=== PATIENT | female | born 1945 | race Caucasian/White ===

== ENCOUNTER 2019-03-05 10:38 | Observation (INO) | payer OTHER ==
[2019-03-05] MEDS: FUROSEMIDE 40 MG/4 ML VIAL IV SCH (14:01)
[2019-03-05] MEDS ORDERED: cloNIDine HCl 0.1 MG TAB PO PRN (14:14)
[2019-03-05 14:21] LABS: Absolute Lymphocytes (CBC) 1.5 K/uL (0.7-4.9); Absolute Monocytes 0.7 K/uL (0.1-1.3); Absolute Neutrophil 7.2 K/uL (1.8-8.0); Basophils % 0.7 % (0-1.3); Eosinophils % 2.3 % (0-4.4); Hematocrit 45.8 % (36.0-45.0); Lymphocytes % 15.5 % (15.3-44.8); MPV 8.9 fL (7.6-11.3); Monocytes % 6.8 % (3.3-12.3); RBC Red Blood Cell Count 4.94 M/uL (3.86-4.86)
--- NOTE | 2019-03-05 14:37 | RAD REPORT ---
EXAM DESCRIPTION: RAD - Chest Pa And Lat (2 Views) - 03/05/2019 2:23 pm CLINICAL HISTORY: CHF COMPARISON: February 20 TECHNIQUE: PA and lateral views of the chest were obtained. FINDINGS: The lungs are slightly underinflated compared to prior study. No focal consolidation or ma ss. Interstitial markings are prominent similar to comparison. Cardiac silhouette is upper normal to slightly enlarged. Vasculature is mildly prominent. No pleural effusion or pneumothorax seen. No a cute bony finding noted. No aortic abnormality. IMPRESSION: Mild CHF pattern similar to February 20.
[2019-03-05 15:03] LABS: Urine Appearance CLEAR; Urine Bilirubin NEGATIVE (NEG); Urine Blood NEGATIVE (NEG); Urine Color YELLOW; Urine Glucose NEGATIVE (NEG); Urine Protein TRACE (NEG); Urine Urobilinogen 0.2 mg/dL (0.2-1.0)
[2019-03-05 15:07] LABS: Urine Microscopic Reflex ORDER UMIC
[2019-03-05 15:18] LABS: Urine Bacteria <20 /HPF (<20); Urine Culture Reflex Order NOT NEEDED; Urine RBC <5 /HPF (NONE SEEN)
[2019-03-05 15:32] LABS: Potassium 3.7 mmol/L (3.5-5.1); Thyroid Stimulating Hormone 1.68 uIU/mL (0.360-3.740)
--- NOTE | 2019-03-05 21:39 | EKG ---
Test Date: 2019-03-05 Test Time: 13:40:01 Contract Management Specialist: LEXII MEASUREMENT RESULTS: Intervals: Rate: 85 IN: QRSD: 88 QT: 352 QTc: 418 [place]: P: IN: QRS: -56 T: 119 INTERPRETIVE STATEMENTS: Atrial fibrillation Left axis deviation ST & T wave abnormality, consider lateral ischemia or digitalis effect Abnormal ECG Compared to ECG 04/19/1999 09:50:00 Left-axis deviation now present ST (T wave) deviation now present Possible ischemia now present Sinus rhythm no longer present Electronically Signed On 03-05-19 21:38:21 CDT by Julio César Hopkins
[2019-03-05] MEDS ORDERED: ALBUTEROL INHALER 60 PUFF/8 GM IH PRN (23:40)
[2019-03-06] MEDS: FUROSEMIDE 40 MG/4 ML VIAL IV SCH ×3 (00:25→16:26)
[2019-03-06] MEDS: NEBIVOLOL HCL 20 MG TABLET PO SCH ×2 (00:25→21:13)
[2019-03-06] MEDS: LEVOTHYROXINE SOD 0.075 MG TAB PO SCH (06:01)
[2019-03-06] MEDS: PANTOPRAZOLE 40MG TABLET PO SCH (06:01)
[2019-03-06 06:29] LABS: Albumin 3.1 g/dL (3.4-5.0); Bilirubin Direct 0.1 mg/dL (0-0.2); Bilirubin Total 0.5 mg/dL (0.2-1.0); Potassium 3.4 mmol/L (3.5-5.1); Protein, Total 7.1 g/dL (6.4-8.2)
[2019-03-06] MEDS: ALLOPURINOL 300 MG TAB PO SCH (08:28)
[2019-03-06] MEDS: LOSARTAN POTASSIUM 50 MG TABLET PO SCH (08:28)
[2019-03-06] MEDS: MONTELUKAST 10 MG TAB PO SCH (08:28)
[2019-03-06] MEDS: TIOTROPIUM 5 SPRAYS/INHALER IH SCH (08:30)
[2019-03-06] MEDS: FLUTICASONE 50MCG NASAL SPRAY NAS SCH (08:30)
[2019-03-06 13:04] VITALS: BMI 45.8
--- NOTE | 2019-03-06 15:05 | CON ---
History Of Present Illness: Ms. Tavarez is 74. She has noticed an irregular heartbeat for 6 months, per haps longer. She had an EKG done about a week ago in Dr. Wise's office. It showed atrial fib. S leticia then, she has had an echocardiogram that did not show any abnormalities of valvular or myocardia l function. Atrial fib was noted and she came to the hospital because she saw Dr. Wise yesterday. Her chief complaint is being out of breath and swelling and gaining weight and feeling irregular he art beat. The patient reports having rheumatic fever as a child. Now, she is treated for hypertensi on and obesity. Medications: Outpatient medications have been Prilosec, Flonase, estradiol, Demadex 20 b.i.d., losar pereira 100 once a day, allopurinol, albuterol, amitriptyline, fenofibrate, levothyroxine, Bystolic 20 b. i.d., tiotropium and Singulair. Social History: She does not use tobacco. Alcohol use minimal. No illegal drugs. She had a hysterectomy in the past, multiparous. She reports a drug intolerance to hydrochlorothiazide. It probably exacerbates gout. Physical Examination: General: 5 feet 4 inches, 266 pounds. Obese, alert, oriented, pleasant, not in distress. Lungs: Clear. Heart: Irregularly irregular. No significant murmur or gallop. Abdomen: Soft. Extremities: Normal. No cyanosis or clubbing. There is 2 to 3+ edema. Mild redness, especially on the left. She has had a venous Doppler, but not very distant past that did not show any DVT. She has had a vei n ablation surgery for venous insufficiency about a year to 2 years ago. Impression: The patient has chronic atrial fibrillation. I do not think we should attempt to change her to normal sinus rhythm, although that could be revisited after she has been anticoagulated for 3 weeks. Her heart rate on the EKG was 85, so I would recommend we continue the Bystolic 20 b.i.d., i nitiate therapy with larger doses of diuretics, teach about sodium restriction and anticoagulate her with Xarelto. The Xarelto dose should be 15 mg once a day. She has renal insufficiency. Her GFR es timate is 41. Thank you very much for your kind referral of Ms. Tavarez. I will follow her with you. SUSAN Voice ID: [id number] Report ID: [id number]
[2019-03-06] MEDS ORDERED: ALBUTEROL INHALER 60 PUFF/8 GM IH PRN (16:43)
[2019-03-06] MEDS ORDERED: POTASSIUM CL SA 10 MEQ TAB PO ONE (17:00)
[2019-03-06] MEDS ORDERED: RIVAROXABAN 15 MG TABLET PO SCH (17:00)
[2019-03-06] MEDS ORDERED: TIOTROPIUM 5 SPRAYS/INHALER IH SCH (21:00)
[2019-03-06] MEDS ORDERED: FENOFIBRATE 145 MG TAB PO SCH (21:00)
[2019-03-06] MEDS ORDERED: NEBIVOLOL HCL 20 MG TABLET PO SCH (21:00)
[2019-03-06] MEDS ORDERED: AMITRIPTYLINE 25 MG TAB PO SCH ×2 (21:00)
[2019-03-07] MEDS: PANTOPRAZOLE 40MG TABLET PO SCH (05:26)
[2019-03-07] MEDS: LEVOTHYROXINE SOD 0.075 MG TAB PO SCH (05:26)
[2019-03-07 06:29] LABS: Potassium 3.5 mmol/L (3.5-5.1)
[2019-03-07] MEDS ORDERED: LEVOTHYROXINE SOD 0.075 MG TAB PO SCH (06:30)
--- NOTE | 2019-03-07 08:27 | RAD REPORT ---
EXAM DESCRIPTION: RAD - Chest Single View - 03/07/2019 6:51 am CLINICAL HISTORY: chf Chest pain. COMPARISON: Chest Pa And Lat (2 Views) dated 03/05/2019; Chest Pa And Lat (2 Views) dated 02/20/2019; Chest Pa And Lat (2 Views) dated 03/01/2018; Chest Pa And Lat (2 Views) dated 03/15/2016 FINDINGS: Portable technique limits examination quality. The lungs are grossly clear. The heart is moderately enlarged prominent in size. No displaced fractur es. IMPRESSION: Significant improvement in CHF since comparative study.
[2019-03-07] MEDS ORDERED: ESTRADIOL PO SCH (09:00)
[2019-03-07] MEDS ORDERED: LOSARTAN POTASSIUM 50 MG TABLET PO SCH (09:00)
[2019-03-07] MEDS ORDERED: MONTELUKAST 10 MG TAB PO SCH (09:00)
[2019-03-07] MEDS ORDERED: POTASSIUM CL SA 10 MEQ TAB PO ONE (09:00)
[2019-03-07] MEDS ORDERED: ALLOPURINOL 300 MG TAB PO SCH (09:00)
[2019-03-07] MEDS: TIOTROPIUM 5 SPRAYS/INHALER IH SCH (09:00)
[2019-03-07] MEDS: FLUTICASONE 50MCG NASAL SPRAY NAS SCH (09:00)
[2019-03-07] MEDS: LOSARTAN POTASSIUM 50 MG TABLET PO SCH (09:26)
[2019-03-07] MEDS: FUROSEMIDE 40 MG/4 ML VIAL IV SCH (09:28)
[2019-03-07] MEDS: MONTELUKAST 10 MG TAB PO SCH (09:31)
[2019-03-07] MEDS: ALLOPURINOL 300 MG TAB PO SCH (09:31)
[2019-03-07 09:37] VITALS: BP 140/80
[2019-03-07 12:35] VITALS: TEMP 97.6
[2019-03-07 14:16] VITALS: O2SAT 95
[2019-03-07] MEDS ORDERED: FLUTICASONE (FLONASE) 50MCG NASAL SPRAY NAS SCH (14:30)
--- NOTE | 2019-03-07 15:16 | PN ---
The patient was admitted by Dr. Wise on 03/05/2019. Dr. Bae saw her on 03/06/2019 for chronic atrial fibrillation. Bystolic 20 b.i.d. was recommended. She was also placed on Xarelto and Lasix. She had an echocardiogram that was normal. Today, she remained in atrial fibrillation, rate about 8 0s. No symptoms of chest pain or palpitation. I think she can go home today on Bystolic, Xarelto, a nd Lasix and we will see her in the office in the next 2 weeks. If she becomes symptomatic or if her fluid retention continues to be an issue, we may have to try to convert her to a normal rhythm down the road. RO/KATTY Voice ID: [id number] Report ID: [id number]
[2019-03-07] MEDS ORDERED: FENOFIBRATE 160 MG TAB PO SCH (21:00)
--- NOTE | 2019-03-07 21:31 | PN ---
Date of Progress Note: 03/06/2019 Subjective: The patient states she does feel somewhat better. As far as her breathing is concerned, since she got the IV Lasix. She has also continued occasionally to notice some regular beats and sh e does have atrial fibrillation with a slow response. She has lost about 4 pounds. Cardiology felt that she should be on low-dose Xarelto. I will repeat the chest x-ray in a.m. if this is okay and sh owed improvement she probably discharged. HR/MODL Voice ID: [id number] Report ID: [id number]
--- NOTE | 2019-03-07 21:37 | PN ---
Date of Progress Note: 03/07/2019 Subjective: The patient feels better. Both clinically and symptomatically, chest x-ray showed marke d improvement. We will discharge her on Lasix. Continue Xarelto and Bystolic. Follow up with me in 1 week and Cardiology in 2 weeks. HR/MODL Voice ID: [id number] Report ID: [id number]
--- NOTE | 2019-03-07 21:37 | HP ---
Date of Admission: 03/05/2019 Chief Complaint: Shortness of breath, skipped heart beats. History Of Present Illness: The patient presented with the above outlined symptoms into the office a bout a week ago. At that time, she stated she has had some increasing dyspnea and noticed associated with this was some irregular heartbeat. She was treated as a COPD secondary to a prior p ulmonary function test with inhalers which produced minimal improvement. The day of admission, she s tated she was markedly worse as far as her breathing was concerned, difficulty coming from the roberto g lot to my office, which was unusual for her. She stated there was no significant difference in the frequency of the extra beats. Workup revealed atrial fibrillation. The chest x-ray show ed a possibility of a mild CHF versus fluid volume overload, we decided to admitted for more intensiv e care. Past Medical History: The patient known signs of any heart problems. She has had an obes ity, hyperlipidemia, and hypertension problem for a number of years, but relatively good control on m edication including beta-blockers. Social History: Nonsmoker and nondrinker. Family History: Noncontributory. Physical Examination: General: The patient is a moderately obese, middle-aged female with obvious dyspnea on exertion. Vital Signs: Normal O2 sats and vital signs. Head and Neck: Normocephalic. Pupils equal, reactive to light and accommodation. Fundi negative. Trachea midline. Thyroid not palpable. ENT: Negative. Chest: Occasional rales in both bases. Adequate air entry and movement. Cardiovascular: PMI in midclavicular line. Heart sounds normal. Peripheral pulses are present and equal bilaterally. Abdomen: No organomegaly. Bowel sounds present. Extremities: +1 pitting edema bilaterally. Rectal and Pelvic: Deferred. Impression: Congestive heart failure, atrial fibrillation. Plan: The patient will be admitted, placed on a monitor, given IV Lasix. Follow up with a Cardiolog y consult as well. HR/MODL Voice ID: [id number]
[2019-03-08] MEDS ORDERED: PANTOPRAZOLE 40MG TABLET PO SCH (07:30)
[2019-03-08] MEDS ORDERED: TIOTROPIUM (SPIRIVA) INHALER IH SCH (09:00)
== END 2019-03-07 14:36 | disposition home or self-care (01) ==
LOC: 2ND 12:37
PROVIDERS: ADMIT Family Medicine; ATTEND Family Medicine
DX: I48.2 Chronic atrial fibrillation (principal); E66.9 Obesity, unspecified; Z68.42 Body mass index [BMI] 45.0-49.9, adult; I50.9 Heart failure, unspecified
CPT/HCPCS: 93005; 85025; 80048 ×3; 36415 ×2; 80061; 80076; 84443; 71045; 71046; J1940 ×5; G0379; G0378; 81003; 81015

== ENCOUNTER 2021-08-13 11:53 | Emergency (ER) | payer OTHER ==
--- NOTE | 2021-08-13 13:46 | RAD REPORT ---
EXAM DESCRIPTION: Gurvinder Single View08/13/2021 1:30 pm CLINICAL HISTORY: Shortness of breath COMPARISON: 2019 FINDINGS: Mild bilateral pulmonary opacities. Heart remains enlarged IMPRESSION: Mild CHF
[2021-08-13 14:17] LABS: ALT/SGPT 21 U/L (12-78); AST/SGOT 18 U/L (15-37); Albumin 2.6 g/dL (3.4-5.0); Alkaline Phosphatase 111 U/L (45-117); BUN Blood Urea Nitrogen 88 mg/dL (7-18); Bicarbonate 23 mmol/L (21-32); Bilirubin Direct 0.2 mg/dL (0-0.2); Bilirubin Total 0.5 mg/dL (0.2-1.0); Glucose Level 113 mg/dL (74-106); Magnesium 2.6 mg/dL (1.8-2.4); NT PRO-BNP 656 pg/mL (<125); Potassium 4.6 mmol/L (3.5-5.1); Protein, Total 7.3 g/dL (6.4-8.2); Sodium Level 132 mmol/L (136-145); Troponin (Emerg Dept Use Only) < 0.02 ng/mL (0.0-0.045)
[2021-08-13 14:30] LABS: Absolute Lymphocytes (CBC) 0.9 K/uL (0.7-4.9); Basophils % 0.6 % (0-1.3); Hematocrit 37.2 % (36.0-45.0); Lymphocytes % 6.9 % (15.3-44.8); MPV 7.6 fL (7.6-11.3); RBC Red Blood Cell Count 3.93 M/uL (3.86-4.86)
[2021-08-13 14:32] LABS: Protime INR 2.25
[2021-08-13] MEDS ORDERED: FUROSEMIDE 40 MG/4 ML VIAL ONE (14:45)
--- NOTE | 2021-08-13 15:38 | EDPHYS ---
Physician Documentation [facility] Name: Jose Maria Tavarez Age: 76 yrs Sex: Female : 1945 Arrival Date: 08/13/2021 Time: 11:58 Bed 25 Private MD: ED Physician Troy Mckay HPI: 08/13 12:36 This 76 yrs old Female presents to ER via Wheelchair with complaints of Leg pm1 Swelling, Shortness Of Breath. 12:36 The patient has shortness of breath at rest. Onset: The symptoms/episode began/occurred pm1 3 week(s) ago, and became worse 3 day(s) ago. Duration: The symptoms are continuous, and are steadily getting worse. The patient's shortness of breath is aggravated by nothing, is alleviated by nothing. Associated signs and symptoms: Pertinent negatives: chest pain, non-productive cough, productive cough, fever, nausea, vomiting. Severity of symptoms: in the emergency department the symptoms are worse. The patient has been recently seen by a physician: a security messenger, Ablation for atrial fibrillation last month. Historical: - Allergies: 12:16 No Known Allergies; ll1 - PMHx: 12:16 Hypertensive disorder; thyroid; A flutter; ll1 - PSHx: 12:16 A flutter SX-ablation; ll1 - Immunization history:: Client reports receiving the 2nd dose of the Covid vaccine. - Social history:: Smoking status: Patient denies any tobacco usage or history of. ROS: 12:36 Constitutional: Negative for fever, chills, and weight loss. pm1 12:36 Abdomen/GI: Negative for abdominal pain, nausea, vomiting, diarrhea, and constipation, Back: Negative for injury and pain, MS/Extremity: Negative for injury and deformity, Skin: Negative for injury, rash, and discoloration, Neuro: Negative for headache, weakness, numbness, tingling, and seizure. 12:36 Cardiovascular: Positive for edema, orthopnea, Negative for chest pain. 12:36 Respiratory: Positive for shortness of breath. 12:36 All other systems are negative. Exam: 12:36 Constitutional: This is a well developed, well nourished patient who is awake, alert, pm1 and in no acute distress. Head/Face: Normocephalic, atraumatic. 12:36 Back: No spinal tenderness. No costovertebral tenderness. Full range of motion. 12:36 Eyes: Exam is negative for acute changes, Extraocular movements: no acute changes, Sclera: no acute changes, icterus, is not appreciated. 12:36 ENT: Mouth: no acute changes, Lips: normal, moist, Oral mucosa: normal, pink and intact, moist. 12:36 Cardiovascular: Rate: bradycardic, Rhythm: irregular, Pulses: no pulse deficits are appreciated, Edema: pedal edema, 3+ bilaterally. 12:36 Respiratory: the patient does not display signs of respiratory distress, Breath sounds: decreased breath sounds, that are mild, are located in both bases. 12:36 Abdomen/GI: Inspection: obese Palpation: abdomen is soft and non-tender, in all quadrants. 12:36 Skin: Appearance: normal except for affected area, Tight weeping skin to bilateral shins. 12:36 Neuro: Exam negative for acute changes, Orientation: is normal, Mentation: is normal, Motor: is normal, moves all fours. Vital Signs: 12:14 BP 116 / 59; Pulse 55; Resp 20; Temp 97.1; Pulse Ox 94% on R/A; Weight 122.47 kg; ll1 Height 5 ft. 5 in. (165.10 cm); Pain 0/10; 13:25 BP 142 / 67; Pulse 53; Resp 22; Pulse Ox 95% on 2 lpm NC; oh 19:20 BP 114 / 59; Pulse 45; Resp 20; Temp 97.7; Pulse Ox 96% on 3 lpm NC; hb 20:16 BP 100 / 61; Pulse 46; Resp 18; Temp 97.7(O); Pulse Ox 95% on 3 lpm NC; hb 21:00 BP 95 / 66; Pulse 47; Resp 18; Pulse Ox 94% on 3 lpm NC; hb 22:00 BP 124 / 69; Pulse 54; Pulse Ox 94% on 3 lpm NC; hb 22:45 BP 124 / 69; Pulse 60; Resp 18; Temp 98(O); Pulse Ox 96% on 3 lpm NC; hb 12:14 Body Mass Index 44.93 (122.47 kg, 165.10 cm) ll1 Procedures: 18:57 Ultrasound: Type: Bedside ECHO, performed by the emergency department physician, rn Bedside ECHO performed by Dr. Mccann, saved clips of parasternal and sub-xiphoid and transmitted images to Dr. Watt for confirmation of pericardial effusion.. MDM: 12:24 Patient medically screened. pm1 15:30 Counseling: I had a detailed discussion with the patient and/or guardian regarding: the pm1 historical points, exam findings, and any diagnostic results supporting the discharge/admit diagnosis, lab results, radiology results, the need for further work-up and treatment in the hospital. 15:35 Data reviewed: vital signs. Data interpreted: Pulse oximetry: on 2L(s) per nasal pm1 canula, is 95 %. Interpretation: normal. 15:39 Differential diagnosis: CHF exacerbation, Chronic Obstructive Pulmonary Disease pm1 pulmonary edema. 16:52 Differential diagnosis: Myocardial Infarction pneumonia, Pericarditis. pm1 17:12 Physician consultation: was called at 15:34, was contacted at 17:10, regarding pm1 admission, patient's condition, Would like hospitalist to admit the patient because he will be out of town. 18:06 Physician consultation: Lázaro GRESHAM regarding admission, and will see patient in ED.pm1 19:05 Physician consultation: Db Watt MD was called at 18:46, was contacted at 18:51, pm1 regarding consult, patient's condition, Requested Ultrasound, but ultrasound techs to perform echoes and not available. Therefore bedside ultrasound performed by Dr. Mccann and images shared with Dr. Watt. He would like the patient transferred to the [facility] due to moderate pericardial effusion. 19:17 Physician consultation: Lázaro GRESHAM regarding Alysa BHANDARI request to transfer the pm1 patient to [facility] for higher level of care. 20:09 ED course: Discussed patient with Dr. Borden. However, [facility] currently at capacity pm1 for IMU/ICU. Dr. Borden, [facility] security messenger would like Dr. Watt to call him to discuss the patient further with him. 20:46 ED course: Transfer center from [facility] called back to inform no ICU/IMU beds pm1 available. They will continue to work on finding a bed for the patient. I will continue to look for another hospital for transfer. [facility] declined due to capacity. 22:27 ED course: Patient wanted to leave. Does not want to be admitted or transfer to other [facility] facility. Patient signed AMA. 08/13 12:34 Order name: Basic Metabolic Panel; Complete Time: 14:58 pm1 08/13 12:34 Order name: CBC with Diff; Complete Time: 14:58 pm1 08/13 12:34 Order name: LFT's; Complete Time: 14:58 pm1 08/13 12:34 Order name: Magnesium; Complete Time: 14:58 pm1 08/13 12:34 Order name: NT PRO-BNP; Complete Time: 14:58 pm1 08/13 12:34 Order name: PT-INR; Complete Time: 14:58 pm1 08/13 12:34 Order name: Troponin (emerg Dept Use Only); Complete Time: 14:58 pm1 08/13 12:34 Order name: XRAY Chest (1 view); Complete Time: 13:53 pm1 08/13 15:41 Order name: COVID-19 : Document "Date of Symptom Onset" if Symptomatic. pm1 08/13 15:42 Order name: CORONAVIRUS EDMS 08/13 17:10 Order name: CT Chest Wo Con pm1 08/13 18:25 Order name: CT; Complete Time: 18:26 EDMS 08/13 18:47 Order name: SARS-COV-2 RT PCR; Complete Time: 19:09 EDMS 08/13 19:18 Order name: Troponin I; Complete Time: 19:19 EDMS 08/13 12:34 Order name: EKG; Complete Time: 12:35 pm1 08/13 12:34 Order name: Cardiac monitoring; Complete Time: 13:18 pm1 08/13 12:34 Order name: EKG - Nurse/Tech; Complete Time: 12:55 pm1 08/13 12:34 Order name: IV Saline Lock; Complete Time: 13:18 pm1 08/13 12:34 Order name: Labs collected and sent; Complete Time: 13:18 pm1 08/13 12:34 Order name: O2 Per Protocol; Complete Time: 12:58 pm1 08/13 12:34 Order name: O2 Sat Monitoring; Complete Time: 12:58 pm1 08/13 16:52 Order name: EKG; Complete Time: 16:53 pm1 08/13 16:52 Order name: EKG - Nurse/Tech; Complete Time: 16:53 pm1 Administered Medications: 14:24 Drug: Lasix (furosemide) 40 mg Route: IVP; Site: left antecubital; oh 19:19 Follow up: Urine output 200 ml; Response: No adverse reaction hb Disposition: 22:15 Co-signature as Attending Physician, Troy Mckay MD. pkl Disposition Summary: 08/13/21 22:32 Left Against Medical Advice Location: Home(08/13/21 22:32) pkl Problem: new(08/13/21 22:32) pkl Symptoms: are unchanged(08/13/21 22:32) pkl Condition: Stable(08/13/21 22:32) pkl Diagnosis - Pericardial effusion. S/P ablation pkl Signatures: Dispatcher [employer] EDMS Troy Mckay MD MD pkl Butch Mccann MD MD rn Marinas, Patrick, NP TYPING BOOKKEEPER pm1 Irlanda Carrasquillo RN RN ll1 Chris Hammond RN RN oh Baxter, Heather RN hb Corrections: (The following items were deleted from the chart) 15:40 15:37 Acute on chronic combined systolic (congestive) and diastolic (congestive) heart pm1 failure pm1 19:07 15:37 Inpatient Admission pm1 pm1 19:07 15:37 Lincoln Wise pm1 pm1 19:07 15:37 Telemetry/MedSurg (Inpatient) pm1 pm1 19:07 15:37 Stable pm1 pm1 19:07 15:37 new pm1 pm1 19:07 15:37 have improved pm1 pm1 19:07 15:37 Standard pm1 pm1 19:07 15:37 pm1 pm1 19:07 15:37 Shortness of breath pm1 pm1 19:07 15:40 Congestive heart failure exacerbation pm1 pm1 22:25 19:09 pm1 pkl 22:26 19:09 [facility] pm1 pkl 22:26 19:09 Higher level of care pm1 pkl 22:26 19:09 Stable pm1 pkl 22:26 19:09 new pm1 pkl 22:26 19:09 have improved pm1 pkl 22:26 19:09 Moderate pericardial effusion pm1 pkl 22:26 19:09 Congestive heart failure exacerbation pm1 pkl
--- NOTE | 2021-08-13 15:38 | ER ---
Nurse's Notes [facility] Name: Jose Maria Tavarez Age: 76 yrs Sex: Female : 1945 Arrival Date: 08/13/2021 Time: 11:58 Bed 25 Private MD: Diagnosis: Pericardial effusion. S/P ablation Presentation: 08/13 12:14 Chief complaint: Patient states: Bilateral leg swelling for 2 days. SOB has gotten ll1 worse for 2 days. LLE is weeping clear liquid. No known fever, but felt hot two days ago. Slight confusion noted per daughter. Coronavirus screen: Vaccine status: Patient reports receiving the 2nd dose of the covid vaccine. Client denies travel out of the [place] in the last 14 days. congestion, difficulty breathing, shortness of breath, Client presents with at least one sign or symptom that may indicate coronavirus-19. Standard/surgical mask placed on the client. Ebola Screen: Patient denies travel to an Ebola-affected area in the 21 days before illness onset. Initial Sepsis Screen: Does the patient meet any 2 criteria? No. Patient's initial sepsis screen is negative. Does the patient have a suspected source of infection? Yes: Other: leg swelling. Risk Assessment: Do you want to hurt yourself or someone else? Patient reports no desire to harm self or others. Onset of symptoms was August 11, 2021. 12:14 Method Of Arrival: Wheelchair ll1 12:14 Acuity: LUDIVINA 3 ll1 Triage Assessment: 13:20 Respiratory: the patient has severe shortness of breath. oh 13:21 General: Appears distressed, Behavior is calm, cooperative, appropriate for age. oh 19:19 Respiratory: Onset: The symptoms/episode began/occurred 07/27/2021. hb 19:19 Pain: Denies pain. hb Historical: - Allergies: 12:16 No Known Allergies; ll1 - PMHx: 12:16 Hypertensive disorder; thyroid; A flutter; ll1 - PSHx: 12:16 A flutter SX-ablation; ll1 - Immunization history:: Client reports receiving the 2nd dose of the Covid vaccine. - Social history:: Smoking status: Patient denies any tobacco usage or history of. Screenin:20 Abuse screen: Denies threats or abuse. Nutritional screening: No deficits noted. oh Tuberculosis screening: No symptoms or risk factors identified. Fall Risk Gait-. Assessment: 13:18 Cardiovascular: Reports SOB after cardiac ablation procedure. Respiratory: Reports oh shortness of breath Respiratory effort is labored, Breath sounds are diminished. 13:21 Respiratory: Airway is patent. oh 13:24 Cardiovascular: Rhythm is sinus bradycardia. oh 19:19 General: Appears in no apparent distress. Behavior is calm, cooperative, AA\\T\\Ox4; denies hb any complaints with exception of stretcher being uncomfortable; sitting on edge of stretcher; daughter sitting in chair \\T\\ side of stretcher; O2 intact \\T\\ 3L/NBP; O2 sat 96%; crackles auscultated right upper lung field with diminished bilateral bases. abdomen obese with + BS's x 4 quads; large amount nonpitting edema noted bilateral lower extremities with palpable 1+ pedal pulses; stasis ulcers noted BLE; #20g saline lock intact right AC with no s/sx' of infiltration/infection noted; stretcher low position; SR up x 1; awaiting transfer to [place], [place] with patient informed \\T\\ v/u.. 19:40 Reassessment: Initiated transfer to [facility] for continuity of care s/p heart ablation bb diagnosis of pericardial effusion. [phone]. 20:03 Reassessment: transfer declined no IMU or ICU beds available. bb 20:25 Reassessment: initiated transfer to [facility] [phone]. bb 20:55 Reassessment: transfer to [facility] declined due to lack of ICU / IMU beds. bb 22:45 Reassessment: No changes from previously documented assessment. Requesting to leave hb AMA; Dr. Troy Mckay in to see \\T\\ informed of risks with AMA formed signed; daughter reports that she is taking her mother to [facility]; saline lock removed right AC with cath. intact/bleeding controlled with pressure dsg applied; T98.0 oral; B/P 124/69; P 60; R 18; O2 sat 3L/NBP; discharged to exit via w/c accompanied by daughter; NAD. Vital Signs: 12:14 BP 116 / 59; Pulse 55; Resp 20; Temp 97.1; Pulse Ox 94% on R/A; Weight 122.47 kg; ll1 Height 5 ft. 5 in. (165.10 cm); Pain 0/10; 13:25 BP 142 / 67; Pulse 53; Resp 22; Pulse Ox 95% on 2 lpm NC; oh 19:20 BP 114 / 59; Pulse 45; Resp 20; Temp 97.7; Pulse Ox 96% on 3 lpm NC; hb 20:16 BP 100 / 61; Pulse 46; Resp 18; Temp 97.7(O); Pulse Ox 95% on 3 lpm NC; hb 21:00 BP 95 / 66; Pulse 47; Resp 18; Pulse Ox 94% on 3 lpm NC; hb 22:00 BP 124 / 69; Pulse 54; Pulse Ox 94% on 3 lpm NC; hb 22:45 BP 124 / 69; Pulse 60; Resp 18; Temp 98(O); Pulse Ox 96% on 3 lpm NC; hb 12:14 Body Mass Index 44.93 (122.47 kg, 165.10 cm) ll1 ED Course: 11:58 Patient arrived in ED. ja2 12:16 Triage completed. ll1 12:18 Arm band placed on. ll1 12:20 Scott Fox, JARAD is PHCP. pm1 12:20 Butch Mccann MD is Attending Physician. pm1 12:25 Bed in low position. Call light in reach. Door closed. Lights dimmed. Pulse ox on. NIBP mb4 on. 12:49 EKG done, by ED staff, reviewed by Scott Fox NP. mb4 12:58 Chris Hammond, ALBERTO is Primary Nurse. oh 13:30 XRAY Chest (1 view) In Process Unspecified. EDMS 15:36 Lincoln Wise MD is Hospitalizing Provider. pm1 15:57 COVID-19 : Document "Date of Symptom Onset" if Symptomatic. Sent. oh 19:19 No provider procedures requiring assistance completed. hb 19:21 CT Chest Wo Con Sent. bb 22:15 Attending Physician role handed off by Butch Mccann MD pkl 22:15 Troy Mckay MD is Attending Physician. pkl 22:45 IV discontinued, intact, bleeding controlled, No redness/swelling at site. Pressure hb dressing applied. Administered Medications: 14:24 Drug: Lasix (furosemide) 40 mg Route: IVP; Site: left antecubital; oh 19:19 Follow up: Urine output 200 ml; Response: No adverse reaction hb Output: 19:19 Urine: 200ml; Total: 200ml. hb Outcome: 15:37 Decision to Hospitalize by Provider. pm1 19:09 ER care complete, transfer ordered by . pm1 22:45 Condition: unchanged hb 22:45 AMA AMA form signed hb 22:45 Instructed on the need for admit. hb 23:22 Patient left the ED. hb Signatures: Dispatcher [employer] EDTroy Dos Santos MD MD pkKamla Jose, RN RN bb Scott Fox, NURSE MIDWIFE/CLINICAL INSTRUCTOR NURSE MIDWIFE/CLINICAL INSTRUCTOR pm1 Bonnie Coughlin RN RN Irene Coughlin4 Irlanda Carrasquillo RN RN [facility] Ludmila Coates [facility] Chris Hammond, RN RN oh
[2021-08-13] MEDS ORDERED: ALBUTEROL 2.5 MG/3 ML NEB SOL NEB PRN (18:16)
[2021-08-13] MEDS ORDERED: IPRATROPIUM BROM 0.5MG/2.5ML NEB PRN (18:16)
[2021-08-13] MEDS ORDERED: FUROSEMIDE 20 MG/ 2ML VIAL IV SCH (18:16)
--- NOTE | 2021-08-13 18:24 | RAD REPORT ---
EXAM DESCRIPTION: CT - Thorax Wo Con - 08/13/2021 6:12 pm CLINICAL HISTORY: sob COMPARISON: August 13, 2021 chest x-ray TECHNIQUE: Computed axial tomography of the chest was obtained. Contrast was not requested. All CT scans are performed using dose optimization technique as appropriate and may include automated exposure control or mA/KV adjustment according to patient size. FINDINGS: The evaluation of mediastinum, sarah and vessels is limited secondary to lack of IV contras t administration. Mild bilateral pulmonary opacities. No mediastinal or hilar lymphadenopathy is seen. A minimal bilateral pleural effusions. Moderate pericardial effusion. Cardiomegaly Calcifications seen within the left lobe of the thyroid gland. Left thyroid nodule. Nonemergent thyr oid ultrasound recommended IMPRESSION: Mild CHF Moderate pericardial effusion
[2021-08-13] MEDS ORDERED: ONDANSETRON 4 MG/2 ML VIAL IV PRN (18:53)
[2021-08-13] MEDS ORDERED: ACETAMINOPHEN 500 MG TAB PO PRN (18:53)
[2021-08-13] MEDS ORDERED: FUROSEMIDE 20 MG/ 2ML VIAL ONE (18:56)
[2021-08-13] MEDS ORDERED: NA CHLORIDE 0.9% 1,000 ML IV SCH (19:00)
[2021-08-13 20:18] VITALS: BMI 46.3
[2021-08-13 23:33] VITALS: BP 124/69
[2021-08-13 23:35] VITALS: TEMP 98; O2SAT 96
[2021-08-14] MEDS ORDERED: HEPARIN 5000 UNIT/ML 1 ML VIAL SQ SCH (01:00)
--- OUTSIDE RECORDS SUMMARY | 2021-09-16 07:52 | XMS REPORT | Continuity of Care Document ---
:1945 Author Organization [facility] t Address [facility] Sigifred[facility] [address] [place] [address] Care Team Providers Name Role Phone MD JULIO C Attending Clinician Unavailable JULIO C Attending Clinician Unavailable JEANNINE Attending Clinician Unavailable DANIEL Attending Clinician Unavailable MD Ivett MEDLEY Attending Clinician Unavailable MD JULIO C Admitting Clinician Unavailable JASMYNE Admitting Clinician Unavailable MD Ivett MEDLEY Admitting Clinician Unavailable JULIOC Admitting Clinician Unavailable Problems Condition Condition Condition Status Onset Resolution Last Treating Co mments Source Name Details Category Date Date Treatment Clinician Date 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 02:07:53 l pain Atypical John n (finding) facial pain (finding) Active Problem 12/18/2020 [facility] Hypertensi Problem Active 2020-12-18 M emoria ve 02:07:53 l disorder, [place] systemic Hypertensi arterial ve (disorder) disorder, systemic arterial (disorder) Active Problem 12/18/2020 [facility] Allergies, Adverse Reactions, Alerts Allergy Allergy Status Severity Reaction(s) Onset Inactive Treating Comm ents Source Name Type Date Date Clinician penicill penicill Active MO^Modera Mem oria in in te l [facility] Social History Smoking Status Start Date Stop Date Source Social History [facility] Medications Ordered Filled Start Stop Current Ordering Indication Dosage Frequency Signature Comments Components Source Medication Medication Date Date Medication? Clinician (SIG) Name Name amitriptyli 2020-0 Yes 10 mg = 1 M emoria ne 10 mg 2-04 tab, PO, l oral tablet 23:11: Bedtime, # [place] 00 90 tab, 2 Refill(s), Pharmacy: [facility][id number] amitriptyli 2020-0 Yes 10 mg = 1 M emoria ne 10 mg 2-04 tab, PO, l oral tablet 23:11: Bedtime, # [place] 00 90 tab, 2 Refill(s), [id number] amitriptyli 2020-0 Yes 10 mg = 1 M emoria ne 10 mg 2-04 tab, PO, l oral tablet 23:11: Bedtime, # [place] 00 90 tab, 2 Refill(s), [id number] amitriptyli 2020-0 Yes 10 mg = 1 M emoria ne 10 mg 2-04 tab, PO, l oral tablet 23:11: Bedtime, # [place] 00 90 tab, 2 Refill(s), [id number] amitriptyli 2020-0 Yes 10 mg = 1 M emoria ne 10 mg 2-04 tab, PO, l oral tablet 23:11: Bedtime, # [place] 00 90 tab, 2 Refill(s), Pharmacy: [facility] #[id number] montelukast 2020-0 Yes 10 mg, PO, Memoria 2-04 Daily, 0 l 22:37: Refill(s) torsemide 2020-0 Yes 20 mg, PO, Me moria 2-04 Daily, # l 22:37: 20 tab, 0 [place] 00 Refill(s) fluticasone 2020-0 Yes 50 Memori a propionate 2-04 microgram, l 22:37: INHALATION [place] 00 , Daily, 0 Refill(s) Synthroid 2020-0 Yes 75 Memoria 2-04 microgram, l 22:37: PO, Daily, [place] 00 0 Refill(s) Amitriptyli 2020-0 No 20 mg, PO, Memoria ne 2-04 Bedtime, 0 l 22:37: Refill(s) [place] 00 Allopurinol 2020-0 Yes 300 mg, Mem oria 2-04 PO, Daily, l 22:37: 0 [place] 00 Refill(s) Xarelto 2020-0 Yes 15 mg, PO, Orlin fabby 2-04 Daily, 0 l 22:37: Refill(s) [place] 00 Losartan 2020-0 Yes 100 mg, Memori a 2-04 PO, Daily, l 22:37: 0 [place] 00 Refill(s) Bystolic 2020-0 Yes 20 mg, PO, Mem oria 2-04 BID, 0 l 22:37: Refill(s) [place] 00 montelukast 2020-0 Yes 10 mg, PO, Memoria 2-04 Daily, 0 l 22:37: Refill(s) torsemide 2020-0 Yes 20 mg, PO, Me moria 2-04 Daily, # l 22:37: 20 tab, 0 Refill(s) fluticasone 2020-0 Yes 50 Memori a propionate 2-04 microgram, l 22:37: INHALATION [place] 00 , Daily, 0 Refill(s) Synthroid 2020-0 Yes 75 Memoria 2-04 microgram, l 22:37: PO, Daily, 0 Refill(s) Amitriptyli 2019-0 No 20 mg, PO, Memoria ne 2-04 Bedtime, 0 l 22:37: Refill(s) Allopurinol 2020-0 Yes 300 mg, Mem oria 2-04 PO, Daily, l 22:37: 0 Refill(s) Xarelto 2019-0 Yes 15 mg, PO, Orlin fabby 2-04 Daily, 0 l 22:37: Refill(s) Losartan 2020-0 Yes 100 mg, Memori a 2-04 PO, Daily, l 22:37: 0 Refill(s) Bystolic 2020-0 Yes 20 mg, PO, Mem oria 2-04 BID, 0 l 22:37: Refill(s) montelukast 2020-0 Yes 10 mg, PO, Memoria 2-04 Daily, 0 l 22:37: Refill(s) torsemide 2020-0 Yes 20 mg, PO, Me moria 2-04 Daily, # l 22:37: 20 tab, 0 Refill(s) fluticasone 2020-0 Yes 50 Memori a propionate 2-04 microgram, l 22:37: INHALATION [place] 00 , Daily, 0 Refill(s) Synthroid 2020-0 Yes 75 Memoria 2-04 microgram, l 22:37: PO, Daily, [place] 00 0 Refill(s) Amitriptyli 2020-0 No 20 mg, PO, Memoria ne 2-04 Bedtime, 0 l 22:37: Refill(s) Allopurinol 2020-0 Yes 300 mg, Mem oria 2-04 PO, Daily, l 22:37: 0 [place] 00 Refill(s) Xarelto 2020-0 Yes 15 mg, PO, Orlin fabby 2-04 Daily, 0 l 22:37: Refill(s) [place] 00 Losartan 2020-0 Yes 100 mg, Memori a 2-04 PO, Daily, l 22:37: 0 Refill(s) Bystolic 2020-0 Yes 20 mg, PO, Mem oria 2-04 BID, 0 l 22:37: Refill(s) montelukast 2020-0 Yes 10 mg, PO, Memoria 2-04 Daily, 0 l 22:37: Refill(s) torsemide 2020-0 Yes 20 mg, PO, Me moria 2-04 Daily, # l 22:37: 20 tab, 0 Refill(s) fluticasone 2019-0 Yes 50 Memori a propionate 2-04 microgram, l 22:37: INHALATION [place] 00 , Daily, 0 Refill(s) Synthroid 2019-0 Yes 75 Memoria 2-04 microgram, l 22:37: PO, Daily, [place] 00 0 Refill(s) Amitriptyli 2019-0 No 20 mg, PO, Memoria ne 2-04 Bedtime, 0 l 22:37: Refill(s) Allopurinol 2020-0 Yes 300 mg, Mem oria 2-04 PO, Daily, l 22:37: 0 Refill(s) Xarelto 2020-0 Yes 15 mg, PO, Orlin fabby 2-04 Daily, 0 l 22:37: Refill(s) Losartan 2020-0 Yes 100 mg, Memori a 2-04 PO, Daily, l 22:37: 0 Refill(s) Bystolic 2020-0 Yes 20 mg, PO, Mem oria 2-04 BID, 0 l 22:37: Refill(s) montelukast 2020-0 Yes 10 mg, PO, [facility] 2-04 Daily, 0 l 22:37: Refill(s) torsemide 2020-0 Yes 20 mg, PO, Me moria 2-04 Daily, # l 22:37: 20 tab, 0 [place] 00 Refill(s) fluticasone 2019-0 Yes 50 Memori a propionate 2-04 microgram, l 22:37: INHALATION [place] 00 , Daily, 0 Refill(s) Synthroid 2019-0 Yes 75 Memoria 2-04 microgram, l 22:37: PO, Daily, [place] 00 0 Refill(s) Amitriptyli 0 No 20 mg, PO, Memoria ne 2-04 Bedtime, 0 l 22:37: Refill(s) [place] 00 Allopurinol 0 Yes 300 mg, Mem oria 2-04 PO, Daily, l 22:37: 0 [place] 00 Refill(s) Xarelto 2019-0 Yes 15 mg, PO, Orlin fabby 2-04 Daily, 0 l 22:37: Refill(s) [place] 00 Losartan 0 Yes 100 mg, Memori a 2-04 PO, Daily, l 22:37: 0 [place] Refill(s) Bystolic 0 Yes 20 mg, PO, Mem oria 2-04 BID, 0 l 22:37: Refill(s) [place] 00 Vital Signs Vital Name Observation Time Observation Value Comments Source Systolic (mm Hg) 2020-12-15 16:25:00 Orlin rial [facility] Diastolic (mm Hg) 2020-12-15 16:25:00 Mem orial [place] Heart Rate 2020-12-15 16:25:00 [facility] Height 2020-12-15 16:25:00 162.56 cm [facility] Weight 2020-12-15 16:25:00 [facility] BMI Calculated 2020-12-15 16:25:00 Memori al [place] Systolic (mm Hg) 2019-12-10 22:30:00 Orlin rial [place] Diastolic (mm Hg) 2019-12-10 22:30:00 Mem orial [place] Heart Rate 2019-12-10 22:30:00 [facility] Respitory Rate 2019-12-10 22:30:00 Memori al [place] Height 2019-12-10 22:30:00 162.56 cm [facility] Weight 2019-12-10 22:30:00 [facility] BMI Calculated 2019-12-10 22:30:00 Memori al [place] Procedures This patient has no known procedures. Encounters Start End Encounter Admission Attending Care Care Encounter Source Date/Time Date/Time Type Type Clinicians Facility Department ID 2021-12-14 2021-12-14 Outpatient SOLITARIO JEREZ [id number] [facility] 10:00:00 10:00:00 03 l [place] 2021-09-15 2021-09-15 Outpatient JOSÉ ANTONIO BUNCH [facility] [id number] [place] 00:00:00 00:00:00 569 [facility] 2021-09-15 2021-09-15 Outpatient JEANNINE [facility] [id number] [place] 00:00:00 00:00:00 ILENE 586 [facility] 2021-08-14 2021-08-21 Inpatient POSMILAN [facility] [id number] [place] 00:00:00 00:00:00 [place] 401 [facility] 2021-07-27 2021-07-28 Outpatient JOSÉ ANTONIO BUNCH [facility] [id number] [place] 00:00:00 00:00:00 175 [facility] 2021-07-26 2021-07-26 Outpatient JOSÉ ANTONIO BUNCH [facility] [id number] [place] 00:00:00 00:00:00 871 [facility] 2021-07-02 2021-07-02 Outpatient JOSÉ ANTONIO BUNCH [facility] [id number] [place] 00:00:00 00:00:[address] 2020-12-15 2020-12-16 Outpatient nullFlavo [facility] [id number] [place] 16:00:00 05:59:59 r Neurology 02 l Kasi Mei 2020-12-15 2020-12-15 Ambulatory nullFlavo [facility] [id number] [place] 16:00:00 16:00:00 Pre-Reg r Neurology 01 l Kasi Mei 2019-12-10 2019-12-11 Outpatient nullFlavo [facility] [id number] [place] 22:00:00 05:59:59 r Neurology 00 l Kasi Mei Results Test Description Test Time Test Comments Results Result Comments Source SARS-CoV-2 (COVID-19) RNA [Presence] in Respiratory sp ecimen by 2021-09-15 15:36:10 RASHID with probe detection Test Item Value Reference Range Interpretation Comme nts SARS-CoV-2 (COVID-19) RNA [Presence] in Respiratory Not detected No t-Detected specimen by RASHID with probe detection (test code = 20722-5) Whether patient is employed in a healthcare setting (test code = 27040-6) Whether the patient has symptoms related to condition of interest (test code = 99100-6) Patient was hospitalized because of this condition (test code = 91721-0) Whether the patient was admitted to intensive care unit (ICU) for condition of interest (test code = 32606-9) Whether patient resides in a congregate care setting (test code = 25551-0) SARS-CoV-2 (COVID-19) RNA [Presence] in Respiratory specimen by RASHID with probe [id number] 00:43:55 Test Item Value Reference Range Interpretation Comments SARS-CoV-2 (COVID-19) RNA Not detected Not-Detected [Presence] in Respiratory specimen by RASHID with probe detection (test code = 55071-6) Whether patient is employed in a healthcare setting (test code = 76425-5) Whether the patient has symptoms related to condition of interest (test code = 22316-3) Patient was hospitalized because of this condition (test code = 57952-8) Whether the patient was admitted to intensive care unit (ICU) for condition of interest (test code = 15294-5) Whether patient resides in a congregate care setting (test code = 22782-6) SARS-CoV-2 (COVID-19) RNA [Presence] in Respiratory specimen by RASHID with probe [id number] 21:43:32 Test Item Value Reference Range Interpretation Comments SARS-CoV-2 (COVID-19) RNA Not detected Not-Detected [Presence] in Respiratory specimen by RASHID with probe detection (test code = 00888-7) Whether patient is employed in a healthcare setting (test code = 89805-7) Whether the patient has symptoms related to condition of interest (test code = 78138-5) Patient was hospitalized because of this condition (test code = 11669-0) Whether the patient was admitted to intensive care unit (ICU) for condition of interest (test code = 66224-7) Whether patient resides in a congregate care setting (test code = 08213-1)
== END 2021-08-13 23:22 | disposition left against medical advice (07) ==
LOC: ER 11:53 → ERHOLD 16:41 → UNDOADMIN 16:41 → ER 23:22 → UNDODISIN 08-14 00:02
DX: I31.3 Pericardial effusion (noninflammatory) (principal); I10 Essential (primary) hypertension; Z53.29 Procedure and treatment not carried out because of patient's decision for other reasons; Z20.822 Contact with and (suspected) exposure to COVID-19
CPT/HCPCS: 93005 ×2; 85025; 80048; 36415; 83735; 85610; 80076; 84484 ×2; 83880; 71250; 71045; 96374; 99284; U0003; J1940 ×2

== ENCOUNTER 2022-09-07 10:41 | Inpatient (IN) | payer OTHER ==
--- OUTSIDE RECORDS SUMMARY | 2022-09-07 10:45 | XMS REPORT | Continuity of Care Document ---
:1945 Author Organization [facility] t Address [address] [place] [address] Care Team Providers Name Role Phone Lincoln Wise MD Primary Care Physician José Antonio Bunch MD Attending Clinician Cabrera Dyson Attending Clinician Arleen Padilla MD Attending Clinician [phone] Ielne Todd MD Attending Clinician MD JOSÉ ANTONIO BUNCH Attending Clinician Unavailable CHACORTA SANCHEZ Attending Clinician Unavailable MD MERVIN MEDLEY Attending Clinician Unavailable MD JOSÉ ANTONIO BUNCH Admitting Clinician Unavailable MD JOSÉ ANTONIO BUNCH Admitting Clinician Unavailable MERVIN MEDLEY Admitting Clinician Unavailable MD MERVIN MEDLEY Admitting Clinician Unavailable Payers Payer Name Policy Type Policy Number Effective Date Expiration Date S ource Problems Condition Condition Condition Status Onset Resolution Last Treating Co mments Source Name Details Category Date Date Treatment Clinician Date Weakness Weakness Disease Active 2020-11 Metho di 0-15 [facility] 00:00: Hospita 00 l MACARIO MACARIO Disease Active 2020-11 Methodi (obstructi (obstructi 0-09 st ve sleep ve sleep 00:00: Hospit a apnea) apnea) 00 l Atrial Atrial Disease Active Methodi fibrillati fibrillati 9-21 st on, on, 00:00: Hospita persistent persistent 00 l 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-13 Memoria facial facial 02:47:13 l pain pain [place] (finding) (finding) Active Problem 06/13/2022 [facility] Hypertensi Hypertens Problem Active 2022-06-13 Memoria ve isidra 02:47:13 l disorder, disorder, Herm duane systemic systemic arterial arterial (disorder) (disorder) Active Problem 06/13/2022 [facility] Allergies, Adverse Reactions, Alerts Allergy Allergy Status Severity Reaction(s) Onset Inactive Treating Comm ents Source Name Type Date Date Clinician penicill penicill Active MO^Modera Mem oria in in te l Sigifred[place] Family History Family Member Diagnosis Comments Start Date Stop Date Source Natural father Colon cancer [facility] Natural father Hyperlipidemia Method [facility] Natural father Hypertension [facility] Natural mother Hypertension [facility] Social History Social Habit Start Date Stop Date Quantity Comments Source Alcohol intake 2021-09-24 2021-09-24 Current drinker of [facility] 00:00:00 00:00:00 alcohol (finding) Hospita l Tobacco use and 2021-07-27 2021-07-27 Smokeless tobacco [facility] exposure 00:00:00 00:00:00 non-user Hospital Alcohol Comment 2021-07-27 2021-07-27 occasional Judaism 00:00:00 00:00:00 Hospital Sex Ass[birth year] At [birth year] Judaism 00:00:00 00:00:00 Hospital Smoking Status Start Date Stop Date Source Social History [facility] Medications Ordered Filled Start Stop Current Ordering Indication Dosage Frequency Signature Comments Components Source Medication Medication Date Date Medication? Clinician (SIG) Name Name nebivoloL 2020-11 Yes 40mg QD Take 40 mg Me thodi (BYSTOLIC) 1-[address] 20 mg 20:18: daily. Hospita tablet 09 l levothyroxi 2020-11 Yes 75ug QD Take 75 Met hodi ne 1-[address] (SYNTHROID) 20:18: mouth Hospi ta 75 mcg 09 daily. l tablet rivaroxaban 2020-11 Yes 15mg QD Take 15 mg Methodi (XARELTO) 1-[address] 15 mg 20:18: daily. Hospita tablet 09 l estradioL 2020-11 Yes 1mg QD Take 1 mg Met hodi (ESTRACE) 1 1-[address] MG tablet 20:18: daily. Hospit a 09 l allopurinoL 2020-11 Yes 100mg QD Take 100 M ethodi (ZYLOPRIM) 1-[address] 100 MG 20:18: mouth Hospita tablet 09 daily. l montelukast 2020-11 Yes 10mg QD Take 10 mg Methodi (SINGULAIR) 1-[address] 10 mg 20:18: nightly. Hospita tablet 09 l fluticasone 2020-11 Yes 1{spray QD 1 spray by Methodi propionate 1-12 } Each Nare st (FLONASE) 20:18: route Hospita 50 09 daily. l mcg/actuati on nasal spray acetaminoph 2020-11 Yes 500mg Q6H Take 500 M ethodi en 1-[address] (TYLENOL) 20:18: mouth Hospita 500 MG 09 every 6 l tablet (six) hours as needed for mild pain. epinephrine 2020-11 Yes Q4H Inhale 1 Me thodi (PRIMATENE 1-[address] MIST INHL) 20:18: s every 4 Ho spita 09 (four) l hours as needed ((max: 8 inhalation s in 24 hours)). colchicine 2020-11 Yes .6mg Q.5D Take 1 Metho di 0.6 mg 1-[address] tablet 00:00: (0.6 mg Hospita 00 total) by l mouth 2 (two) times a day as needed (Post ablation chest pain). alum-mag 2020-11 No 30mL [id number] Take 30 mL Methodi hydroxide-s 11-17 [id number] by mouth [address] imeth 00:00: 05:59 3D (three) Hospita (MAALOX 00 :00 times a l PLUS) day for 30 200-200-20 days. mg/5 mL suspension pantoprazol 2020-11- No 40mg Q.5D Take 1 Met hodi e 11-17- tablet (40 st (Protonix) 00:00: 05:59 mg total) H ospita 40 MG EC 00 :00 by mouth 2 l tablet (two) times a day for 30 days. ondansetron 2020-11- No 4mg Q8H Take 1 Met hodi ODT 0-16 11-16 tablet (4 st (ZOFRAN-ODT 00:00: 05:59 mg total) Hospita ) 4 MG 00 :00 by mouth l disintegrat every 8 ing tablet (eight) hours as needed for nausea or vomiting for up to 30 days. torsemide 2020-11- No 40mg Q.5D Take 2 Metho di (DEMADEX) 0-16 11-[address] 20 MG 00:00: 05:59 (40 mg Hospita tablet 00 :00 total) by l mouth 2 (two) times a day for 30 days. Can start taking 20mg twice/day if swelling in legs improves amIODarone Yes 200mg QD Take 1 Meth adriana (PACERONE) 8-[address] 200 MG 00:00: (200 mg Hospita tablet 00 total) by l mouth daily. amitriptyli 2020-0 Yes 10 mg = 1 M emoria ne 10 mg 2-04 tab, PO, l oral tablet 23:11: Bedtime, # [place] 00 90 tab, 2 Refill(s), Pharmacy: [facility] #[id number] amitriptyli 2020-0 Yes 10 mg = 1 M emoria ne 10 mg 2-04 tab, PO, l oral tablet 23:11: Bedtime, # [place] 00 90 tab, 2 Refill(s), Pharmacy: [facility] #[id number] amitriptyli 2020-0 Yes 10 mg = 1 M emoria ne 10 mg 2-04 tab, PO, l oral tablet 23:11: Bedtime, # Sigifredo 00 90 tab, 2 Refill(s), Pharmacy: [facility] #[id number] amitriptyli 2020-0 Yes 10 mg = 1 M emoria ne 10 mg 2-04 tab, PO, l oral tablet 23:11: Bedtime, # Sigifredo 00 90 tab, 2 Refill(s), Pharmacy: [facility] #[id number] amitriptyli 2020-0 Yes 10 mg = 1 M emoria ne 10 mg 2-04 tab, PO, l oral tablet 23:11: Bedtime, # Sigifredo 00 90 tab, 2 Refill(s), Pharmacy: [facility] #[id number] amitriptyli 2020-0 Yes 10 mg = 1 M emoria ne 10 mg 2-04 tab, PO, l oral tablet 23:11: Bedtime, # [place] 00 90 tab, 2 Refill(s), [id number] amitriptyli 2020-0 Yes 10 mg = 1 M emoria ne 10 mg 2-04 tab, PO, l oral tablet 23:11: Bedtime, # [place] 00 90 tab, 2 Refill(s), Pharmacy: [facility] #[id number] Losartan 2020-0 Yes 100 mg, Memori a [...] Memoria 2-04 microgram, l 22:37: PO, Daily, Sigifredo 00 0 Refill(s) Amitriptyli 2020-0 No 20 mg, PO, Memoria ne 2-04 Bedtime, 0 l 22:37: Refill(s) Allopurinol 2020-0 Yes 300 mg, Mem oria 2-04 PO, Daily, l 22:37: 0 Refill(s) Xarelto 2020-0 Yes 15 mg, PO, Orlin fabby 2-04 Daily, 0 l 22:37: Refill(s) [place] 00 Losartan 2020-0 Yes 100 mg, Memori a 2-04 PO, Daily, l 22:37: 0 Refill(s) Bystolic 2020-0 Yes 20 mg, PO, Mem oria 2-04 BID, 0 l 22:37: Refill(s) montelukast 2020-0 Yes 10 mg, PO, Memoria 2-04 Daily, 0 l 22:37: Refill(s) [place] 00 torsemide 2020-0 Yes 20 mg, PO, Me moria 2-04 Daily, # l 22:37: 20 tab, 0 [place] 00 Refill(s) fluticasone 2020-0 Yes 50 Memori a propionate 2-04 microgram, l 22:37: INHALATION Sigifredo 00 , Daily, 0 Refill(s) Losartan 2020-0 Yes 100 mg, Memori [...] Memoria 2-04 microgram, l 22:37: PO, Daily, Sigifredo 00 0 Refill(s) Amitriptyli 2020-0 No 20 mg, PO, Memoria ne 2-04 Bedtime, 0 l 22:37: Refill(s) Allopurinol 2020-0 Yes 300 mg, Mem oria 2-04 PO, Daily, l 22:37: 0 Refill(s) Xarelto 2020-0 Yes 15 mg, PO, Orlin fabby 2-04 Daily, 0 l 22:37: Refill(s) Synthroid 2020-0 Yes 75 Memoria 2-04 microgram, l 22:37: PO, Daily, 0 Refill(s) Amitriptyli 2020-0 No 20 mg, [...] 2-04 Bedtime, 0 l 22:37: Refill(s) Allopurinol 2019-0 Yes 300 mg, Mem oria 2-04 PO, [...] Memoria 2-04 microgram, l 22:37: PO, Daily, Sigifredo 00 0 Refill(s) Amitriptyli 2020-0 No 20 mg, PO, Memoria ne 2-04 Bedtime, 0 l 22:37: Refill(s) Allopurinol 2020-0 Yes 300 mg, Mem oria 2-04 PO, Daily, l 22:37: 0 Refill(s) Xarelto 2020-0 Yes 15 mg, PO, Orlin fabby 2-04 Daily, 0 l 22:37: Refill(s) Losartan 2019-0 Yes 100 mg, Memori a 2-04 PO, Daily, l 22:37: 0 Refill(s) Bystolic 2019-0 Yes 20 mg, PO, Mem oria 2-04 BID, 0 l 22:37: Refill(s) montelukast 2019-0 Yes 10 mg, PO, Memoria 2-04 Daily, 0 l 22:37: Refill(s) torsemide 2019-0 Yes 20 mg, PO, Me moria 2-04 Daily, # l 22:37: 20 tab, 0 Refill(s) fluticasone 2019-0 Yes 50 Memori a propionate 2-04 microgram, l 22:37: INHALATION 00 , Daily, 0 Refill(s) Synthroid 2020-0 Yes 75 Memoria 2-04 microgram, l 22:37: PO, Daily, 0 Refill(s) Amitriptyli 2019-0 No 20 mg, PO, Memoria ne 2-04 Bedtime, 0 l 22:37: Refill(s) Allopurinol 2020-0 Yes 300 mg, Mem oria 2-04 PO, Daily, l 22:37: 0 Refill(s) Xarelto 2020-0 Yes 15 mg, PO, Orlin fabby 2-04 Daily, 0 l 22:37: Refill(s) Losartan 2019-0 Yes 100 mg, Memori a 2-04 PO, Daily, l 22:37: 0 Refill(s) Bystolic 2019-0 Yes 20 mg, PO, Mem oria 2-04 BID, 0 l 22:37: Refill(s) [place] 00 montelukast 2019-0 Yes 10 mg, PO, Memoria 2-04 Daily, 0 l 22:37: Refill(s) torsemide 2019-0 Yes 20 mg, PO, Me moria 2-04 Daily, # l 22:37: 20 tab, 0 Sigifredo 00 Refill(s) fluticasone 2019-0 Yes 50 Memori a propionate 2-04 microgram, l 22:37: INHALATION [place] 00 , Daily, 0 Refill(s) Synthroid 2019-0 Yes 75 Memoria 2-04 microgram, l 22:37: PO, Daily, Sigifredo 00 0 Refill(s) Amitriptyli 0 No 20 mg, PO, Memoria ne 2-04 Bedtime, 0 l 22:37: Refill(s) [place] 00 Allopurinol 0 Yes 300 mg, Mem oria 2-04 PO, Daily, l 22:37: 0 Sigifredo 00 Refill(s) Xarelto 2019-0 Yes 15 mg, PO, Orlin fabby 2-04 Daily, 0 l 22:37: Refill(s) Vital Signs Vital Name Observation Time Observation Value Comments Source Heart rate 2021-09-17 23:30:00 68 /min [facility] Respiratory rate 2021-09-17 23:30:00 28 /min [facility] Oxygen saturation in 2021-09-17 23:30:00 95 /min [facility] Arterial blood by Pulse oximetry Systolic blood 2021-09-17 23:15:00 111 mm[Hg] [facility] pressure Diastolic blood 2021-09-17 23:15:00 54 mm[Hg] [facility] pressure Body temperature 2021-09-17 20:33:00 36.5 Ann-Marie [facility] Body height 2021-09-17 15:22:00 162.6 cm [facility] Body weight 2021-09-17 15:22:00 119.296 kg [facility] BMI 2021-09-17 15:22:00 45.14 kg/m2 [facility] Systolic (mm Hg) 2020-12-15 16:25:00 Orlin rial [place] Diastolic (mm Hg) 2020-12-15 16:25:00 Mem orial Sig[place] Heart Rate 2020-12-15 16:25:00 Fabiola [address] Height 2020-12-15 16:25:00 162.56 cm [facility] [place] Weight 2020-12-15 16:25:00 [facility] [place] BMI Calculated 2020-12-15 16:25:00 Tyler al [address] Systolic (mm Hg) 2019-12-10 22:30:00 Orlin shearer [address] Diastolic (mm Hg) 2019-12-10 22:30:00 [facility] orial [address] Heart Rate 2019-12-10 22:30:00 [facility] [address] Respitory Rate 2019-12-10 22:30:00 Tyler patel [address] Height 2019-12-10 22:30:00 162.56 cm Fabiola [address] Weight 2019-12-10 22:30:00 [facility] [address] BMI Calculated 2019-12-10 22:30:00 Tyler patel [address] Procedures Procedure Date / Time Performing Clinician Source Performed PROTHROMBIN TIME WITH INR 2022-09-05 16:55:00 José Antonio Bunch [facility] MAGNESIUM LEVEL 2022-09-05 16:55:00 José Antonio Bunch spital HC COMPLETE BLD COUNT 2022-09-05 16:55:00 José Antonio Bunch [facility] W/AUTO DIFF COMPREHENSIVE METABOLIC 2022-09-05 16:55:00 Michaelle [facility] PANEL ESTIMATED GFR 2022-09-05 16:55:00 José Antonio Bunch spital COVID-19 QUALITATIVE 2022-09-05 16:55[facility]00 [facility] 12-LEAD 2021-09-17 21:44:18 José Antonio Bunch spital ACTIVATED CLOTTING TIME 2021-09-17 20:56:00 Michaelle [facility] POC GLUCOSE 2021-09-17 20:50:00 José Antonio Bunch spital ACTIVATED CLOTTING TIME 2021-09-17 20:44:00 Michaelle [facility] ACTIVATED CLOTTING TIME 2021-09-17 20:27:00 Michaelle [facility] EP COMPLETE EP STUDY W 2021-09-17 19:59:59 José Antonio Bunch [facility] ABLATION PULMONARY VEIN ACTIVATED CLOTTING TIME 2021-09-17 19:50:00 Michaelle [facility] ARTERIAL BLOOD GAS, 2021-09-17 19:35:00 Michaelle [facility] CORRECTED SODIUM LEVEL, SYRINGE 2021-09-17 19:35:00 Michaelle [facility] POTASSIUM, SYRINGE 2021-09-17 19:35:00 Michaelle [facility] IONIZED CALCIUM, ARTERIAL 2021-09-17 19:35:00 Michaelle [facility] HEMOGLOBIN, SYRINGE 2021-09-17 19:35:00 Michaelle [facility] GLUCOSE LEVEL, SYRINGE 2021-09-17 19:35:00 Michaelle [facility] ACTIVATED CLOTTING TIME 2021-09-17 19:10:00 Michaelle [facility] ARTERIAL LINE 2021-09-17 18:03:18 [facility] [place] AN ELECTIVE 2021-09-17 18:02:08 [facility] ENDOTRACHEAL AIRWAY [place] ECG PRE/POST OP 2021-09-17 16:32:40 José Antonio Bunch spital PROTHROMBIN TIME WITH INR 2021-09-17 15:56:00 Michaelle [facility] TYPE AND SCREEN 2021-09-17 15:56:00 José Antonio Bunch spital URINALYSIS SCREEN AND 2021-09-15 16:17:00 Ilene Todd [facility] MICROSCOPY, WITH REFLEX TO CULTURE CREATININE LEVEL, URINE, 2021-09-15 16:17:00 [facility]ene Ladan [facility] RANDOM PROTEIN, URINE, RANDOM 2021-09-15 16:17:00 [facility] Ilene Ladan [facility] URINE CULTURE 2021-09-15 16:17:00 [facility] COMPREHENSIVE METABOLIC 2021-09-15 16:10:00 Michaelle [facility] PANEL ESTIMATED GFR 2021-09-15 16:10:00 José Antonio Bunch spital PHOSPHORUS LEVEL 2021-09-15 16:10:00 José Antonio Bunch ospital COVID-19 QUALITATIVE 2021-09-15 16:10:00 [facility] PROTHROMBIN TIME WITH INR 2021-09-15 16:10:00 José Antonio Bunch [facility] MAGNESIUM LEVEL 2021-09-15 16:10:00 José Antonio Bunch Ho spital HC COMPLETE BLD COUNT 2021-09-15 16:10:00 José Antonio Bunch [facility] W/AUTO DIFF Plan of Care Planned Activity Planned Date Details Comments Source Future Scheduled Test 2022-09-07 HEPATITIS B VACCINES [facility] 08:50:53 (1 of 3 - 3-dose series) [code = HEPATITIS B VACCINES (1 of 3 - 3-dose series)] Future Scheduled Test 2022-09-07 65+ PNEUMOCOCCAL [facility] 08:50:53 VACCINE (1 - PCV) [code = 65+ PNEUMOCOCCAL VACCINE (1 - PCV)] Future Scheduled Test 2022-09-07 Hepatitis C screening [facility] 08:50:53 (procedure) [code = 993746159] Future Scheduled Test 2022-09-07 SHINGLES VACCINES (1 [facility] 08:50:53 of 2) [code = SHINGLES VACCINES (1 of 2)] Future Scheduled Test 2022-09-07 COLONOSCOPY SCREENING [facility] 08:50:53 [code = COLONOSCOPY SCREENING] Future Scheduled Test 2022-09-07 BREAST CANCER [facility] 08:50:53 SCREENING [code = BREAST CANCER SCREENING] Future Scheduled Test 2022-09-07 COVID-19 VACCINE (4 - [facility] 08:50:53 Booster for Moderna series) [code = COVID-19 VACCINE (4 - Booster for Moderna series)] Future Scheduled Test 2022-09-07 INFLUENZA VACCINE [facility] 08:50:53 [code = INFLUENZA VACCINE] Future Appointment 2022-09-09 José Antonio Bunch MD, [address] [facility] 07:00:[address] [facility] [place]; [address], [place] [address] Future Appointment 2022-09-09 José Antonio Bunch MD, [address] [facility] 07:00:00 [facility] [place]; [address], [place] [address] Encounters Start End Encounter Admission Attending Care Care Encounter Source Date/Time Date/Time Type Type Clinicians Facility Department ID 2022-09-05 2022-09-05 Lab José Antonio Bunch 1.2.840.1 [id number] [facility] 12:15:00 12:20:[address] 3.430.2.7 Hospit a .3.075740 l .8 2022-09-05 2022-09-05 [facility] José Antonio Bunch 1.2.840.1 [id number] Methodi 11:45:00 11:45:[id number] 3.430.2.7 Hospit a .3.697596 l .8 2022-09-05 2022-09-05 Outpatient JOSÉ ANTONIO BUNCH [facility] [id number] [place] 00:00:00 00:00:[address] 2022-09-05 2022-09-05 Travel 1.2.840.1 1.2.629.721 [id number] Methodi 00:00:00 00:00:[address] 3.430.2.7 0.2.7.3.698 Ho spita .3.364352 084.8 l .8 2022-08-17 2022-08-17 Travel 1.2.840.1 1.2.776.774 [id number] Methodi 00:00:00 00:00:[address] 3.430.2.7 0.2.7.3.698 Ho spita .3.586996 084.8 l .8 2022-08-17 2022-08-17 [facility] José Antonio Bunch 1.2.840.1 [id number] Methodi 00:00:00 00:00:[address] 3.430.2.7 Hospit a .3.618144 l .8 2022-06-09 2022-06-11 Outside nullFlavo MNA [id number] Memoria 13:40:34 04:59:59 Medical r Neurology 00 l Records Kasi Mei 2022-06-09 2022-06-11 Outside nullFlavo MNA [id number] Memoria 13:40:34 04:59:59 Medical r Neurology 00 l Records Kasi [place] 2022-06-09 2022-06-10 Outpatient MHMISCHER MISCHER [id number] 08:40:34 23:59:59 00 2021-12-14 2021-12-14 Ambulatory nullFlavo MNA [id number] Memoria 16:00:00 16:00:00 Pre-Reg r Neurology 03 l Kasi [place] 2021-12-14 2021-12-14 Ambulatory nullFlavo MNA [id number] Memoria 16:00:00 16:00:00 Pre-Reg r Neurology 03 l Kasi [place] 2021-12-14 2021-12-14 Outpatient MHIE SOLITARIO [id number] Memoria 10:00:00 10:00:00 03 l [place] 2021-12-14 2021-12-14 [id number] 10:00:00 10:00:00 Cabrera [facility] 2021-09-17 2021-09-17 [facility] José Antonio Bunch 1.2.840.1 [id number] Methodi 09:11:00 18:00:[id number] 3.430.2.7 Hospit a .3.283660 l .8 2021-09-17 2021-09-17 Surgery José Antonio Bunch 1.2.840.1 [id number] Methodi 11:50:00 15:30:[address] 3.430.2.7 Hospit a .3.763098 l .8 2021-09-17 2021-09-17 Anesthesia Padilla, 1.2.840.1 [id number] Methodi 11:15:00 14:34:00 Event Arleen 26761.1.[address] [place] 3.430.2.7 Hospi ta .3.490091 l .8 2021-09-17 2021-09-17 Travel 1.2.840.1 1.2.498.709 [id number] Methodi 00:00:00 00:00:[address] 3.430.2.7 0.2.7.3.698 Ho spita .3.528926 084.8 l .8 2021-09-17 2021-09-17 Outpatient JOSÉ ANTONIO BUNCH [facility] [id number] [place] 00:00:00 00:00:[address] 2021-09-15 2021-09-15 Lab Perez 1.2.840.1 [id number] Methodi 09:50:00 09:55:00 Ilene SanthoshLadan 35480.1.1 586 s t 3.430.2.7 Hospit a .3.919938 l .8 2021-09-15 2021-09-15 [facility] José Antonio Bunch 1.2.840.1 [id number] Methodi 09:45:00 09:50:[address] 3.430.2.7 Hospit a .3.652567 l .8 2021-09-15 2021-09-15 Travel 1.2.840.1 1.2.272.791 [id number] Methodi 00:00:00 00:00:[address] 3.430.2.7 0.2.7.3.698 Ho spita .3.557468 084.8 l .8 2021-09-15 2021-09-15 [facility] José Antonio Bunch 1.2.840.1 [id number] Methodi 00:00:00 00:00:[address] 3.430.2.7 Hospit a .3.799589 l .8 2021-09-15 2021-09-15 Outpatient JOSÉ ANTONIO BUNCH [facility] [id number] [place] 00:00:00 00:00:[address] 2021-09-15 2021-09-15 Outpatient PEREZ [facility] [id number] [place] 00:00:00 00:00:[address] ILENE [address] 2021-08-14 2021-08-21 Inpatient DANIEL [facility] [id number] [place] 00:00:00 00:00:00 CHACORTA [address] 2021-07-27 2021-07-28 Outpatient JOSÉ ANTONIO BUNCH [facility] [id number] [place] 00:00:00 00:00:[address] 2021-07-26 2021-07-26 Outpatient JOSÉ ANTONIO BUNCH [facility] [id number] [place] 00:00:00 00:00:[address] 2021-07-02 2021-07-02 Outpatient JOSÉ ANTONIO BUNCH [facility] 021 [id number] [place] 00:00:00 00:00:00 885 Method i 2020-12-15 2020-12-16 Outpatient nullFlavo MNA [id number] Memoria 16:00:00 05:59:59 r Neurology 02 l Kasi [place] 2020-12-15 2020-12-16 Outpatient nullFlavo MNA [id number] Memoria 16:00:00 05:59:59 r Neurology 02 l Kasi Sigifredo 2020-12-15 2020-12-15 Outpatient HENRY DysonSCHER MISCHER [id number] 10:00:00 23:59:59 Cabrera 02 Kareem 2020-12-15 2020-12-15 Ambulatory nullFlavo MNA [id number] Memoria 16:00:00 16:00:00 Pre-Reg r Neurology 01 l Kasi [place] 2020-12-15 2020-12-15 Ambulatory nullFlavo MNA [id number] Memoria 16:00:00 16:00:00 Pre-Reg r Neurology 01 l Kasi Mei 2020-12-15 2020-12-15 Outpatient MHIE MHIE [id number] Memoria 10:00:00 10:00:00 02 xenia RogersTrivoli 2020-12-15 2020-12-15 Outpatient MHIE MHIE [id number] Memoria 10:00:00 10:00:00 01 xenia Mei 2020-12-15 2020-12-15 Outpatient HENRY DysonSCHCHILO MISCHER [id number] 10:00:00 10:00:00 Cabrera 01 Kareem 2019-12-10 2019-12-11 Outpatient nullFlavo MNA [id number] Memoria 22:00:00 05:59:59 r Neurology 00 l Kasi Mei 2019-12-10 2019-12-11 Outpatient nullFlavo MNA [id number] Memoria 22:00:00 05:59:59 r Neurology 00 l Kasi Mei 2019-12-10 2019-12-10 Outpatient [facility] [id number] 16:00:00 23:59:59 Cabrera 00 Kareem 2019-12-10 2019-12-10 Outpatient MHIE MHIE [id number] Memoria 16:00:00 16:00:00 00 l Sigifredo Results Test Description Test Time Test Comments Results Result Comments Source COVID-19 qualitative RT-PCR 2022-09-05 23:10:22 Test Item Value Reference Range Interpretation Comme nts Interpretation (test Negative results do not code = [id number]) preclude COVID-19 infection and should not be used asthe sole basis for treatment or other patient management decisions. Negativeresults must be combined with clinical observations, patient history, andepidemiological information. COVID-19 qualitative Not-Detected Not-Detec DISCLAI SOPHIA:This test RT-PCR result (test code keny was performed using the = 62256-6) Roddyty m SARS- CoV-2 Assay ([employer]). This assay is a vailable for in vitro di agnostic use under Food and Drug Administration (FDA) Emergency Use Authorization ( EUA) and has been verifi ed for clinical use by the [facility] oratory. Information on the FDA policy for diag nostic tests for coron avirus disease- 2019 i s available at:https://www. fda.gov/ medical-devices /emergen uc-vtdaewxhip-s edical-d evices/faqs-du gnostic- tralvey-msfw-ta v-2It is critical that doctors hospital care providers and patients review the applicable fact sheet(s) in interpreting or understanding t he test results that ar e available upon request.METHODO LOGY:Thi s assay utilize s reagents for nu cleic acid extraction , amplification, and real-time rever se fuel injection servicer polymerase hunter n reaction. COVID-19 qualitative See link below for PDF Lab Case Number: RT-PCR (test code = Report [id number]) [employer] EgnuszmwMWCA-AwN-4 (COVID-19) RNA [Presence] in Respiratory specimen by RASHID with probe [id number] 18:10:22 Test Item Value Reference Range Interpretation Comments SARS-CoV-2 (COVID-19) RNA Not detected [Presence] in Respiratory specimen by RASHID with probe detection (test code = 12687-0) Whether patient is employed in a Unknown healthcare setting (test code = 32501-1) Whether the patient has symptoms Unknown related to condition of interest (test code = 99536-6) Whether the patient was Unknown hospitalized for condition of interest (test code = 15190-2) Whether the patient was admitted Unknown to intensive care unit (ICU) for condition of interest (test code = 43008-9) Whether patient resides in a Unknown congregate care setting (test code = 09624-4) status (test code = Unknown 46942-5) Date and time of symptom onset Unknown (test code = 38961-5) [facility] [id number] 12:27:11 Test Item Value Reference Range Interpretation Comments Activated clotting time See_Comment H Oper ator Name: (test code = 5298) Randy BaconThien ID: [id number] [Autom ated message] The sy stem which generated this result transmit keny reference range : 96 - 152 sec. The re ference range was not u sed to interpret this result as normal/abnor mal. Lab Interpretation Abnormal (test code = 04098-2) [facility] 12 [id number] 00:29:34 Test Item Value Reference Range Interpretation Comments Ventricular rate (test code = 253) Atrial rate (test code = 255) NJ interval (test code = 266) QRSD interval (test code = 260) QT interval (test code = 264) QTC interval (test code = 265) P axis 1 (test code = 267) QRS axis 1 (test code = 268) T wave axis (test code = 270) EKG impression (test ^^^ Poor data quality, code = 273) interpretation may be adversely affected-Sinus rhythm with 1st degree AV block with premature atrial complexes-Left axis deviation-Abnormal ECG-In automated comparison with ECG of 17-SEP-2021 10:32,-Previous ECG has undetermined rhythm, needs review-Criteria for Anterior infarct are no longer present- [facility] [id number] 20:51:15 Test Item Value Reference Range Interpretation Comments POC glucose (test code = 107 mg/dL 65-99 H Ope rator Name: [id number]) Larry Armendariz ID: [id number] able : [facility] 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 The reference r nain was not used to interpret this result as normal/abnor mal. pO2, arterial (test code See_Comment H [A utomated message] = 2703-7) The system [employer] generated this result transmitted ref erence range: 80 - 90 mmHg. The reference r nain was not used to interpret this result as normal/abnor mal. Temperature, Celsius Degrees C (test code = 8310-5) O2 saturation, arterial 98 % 95-100 (test code = 2708-6) pH, arterial corrected (test code = 21945-2) pCO2, arterial corrected mmHg (test code = 78506-9) pO2, arterial corrected mmHg (test code = 89927-0) Base excess, arterial See_Comment [Auto mated message] (test code = 1925-7) The s tem which generated this result transmitted ref erence range: -2 - 2 m Eq/L. The reference r nain was not used to interpret this result as normal/abnor mal. Lab Interpretation (test Abnormal code = 91375-4) [facility], [id number] 19:38:09 Test Item Value Reference Range Interpretation Comments Glucose, syringe (test code = 93 mg/dL 65-99 2345-7) [facility]em[facility], [id number] 19:38:09 Test Item Value Reference Range Interpretation Comments Hemoglobin, syringe (test code = 11.0 g/dL 12.0-16.0 L 718-7) Lab Interpretation (test code = Abnormal 56127-3) [facility]viewIonized calcium, [id number] 19:38:09 Test Item Value Reference Range Interpretation Comments Ionized calcium, arterial (test 0.92 mmol/L 1.11-1.32 L code = 30222-5) Lab Interpretation (test code = Abnormal 69044-5) [facility]assium, [id number] 19:38:09 Test Item Value Reference Range Interpretation Comments Potassium, syringe (test See_Comment L [A utomated message] code = 2007) The system [employer] generated this result transmitted ref erence range: 3.5 - 5. 0 mEq/L. The refe rence range was not u sed to interpret this result as normal/abnor mal. Lab Interpretation (test Abnormal code = 81213-4) [facility], [id number] 19:38:09 Test Item Value Reference Range Interpretation Comments Sodium, syringe (test See_Comment [Auto mated message] The code = 2947-0) system which generated this result tra nsmitted reference range : 135 - 148 mEq/L. The refe rence range was not used to interpret this result as normal/abnormal . [facility] and [id number] 17:08:00 Test Item Value Reference Range Interpretation Comments ABO grouping (test code = 883-9) A Rh type (test code = 76571-2) POS Antibody screen (gel) (test code = NEG 890-4) [facility] Pre/Post [id number] 16:38:05 Test Item Value Reference Range Interpretation Comments Ventricular rate (test code = 253) Atrial rate (test code = 255) NJ interval (test code = 266) QRSD interval (test code = 260) QT interval (test code = 264) QTC interval (test code = 265) P axis 1 (test code = 267) QRS axis 1 (test code = 268) T wave axis (test code = 270) EKG impression (test code Atrial = 273) Fibrillation-Left axis deviation-Anterior infarct (cited on or before 21-AUG-2021)-Abnorma l ECG- [facility]viewUrinalysis screen and microscopy, with reflex to culture 2021-09-15 18:10:49 Test Item Value Reference Range Interpretation Comments Specimen site (test Clean catch code = 5935558) Color, UA (test code Straw = 5778-6) Appearance, UA (test Hazy code = 5767-9) Specific gravity, UA 1.001-1.035 (test code = 5811-5) pH, UA (test code = 5.0-8.5 5803-2) Protein, UA (test Negative Negative code = 13016-3) Glucose, UA (test Negative Negative code = 61416-5) Ketones, UA (test Negative Negative code = 2514-8) Bilirubin, UA (test Negative Negative code = 5770-3) Blood, UA (test code Negative Negative = 5794-3) Nitrite, UA (test Negative Negative code = 5802-4) Urobilinogen, UA <2.0 See_Comment [Automated message] (test code = 08077-2) The sy stem which generated this result transmitted ref erence range: <=2.0. T he reference range was not used to int erpret this result as normal/abnormal . Leukocyte esterase, Negative Negative UA (test code = 5799-2) Epithelial cells, UA See_Comment [Autom ated message] (test code = 5787-7) The sys tem which generated this result transmitted ref erence range: /HPF. Th e reference range was not used to int erpret this result as normal/abnormal . WBC, UA (test code = None seen See_Comment [Autom ated message] 5821-4) The system [employer] generated this result transmitted ref erence range: 0 - 4 /H PF. The reference r nain was not used to interpret this result as normal/abnor mal. RBC, UA (test code = None seen See_Comment [Autom ated message] 94764-5) The system [employer] generated this result transmitted ref erence range: 0 - 5 /H PF. The reference r nain was not used to interpret this result as normal/abnor mal. Bacteria, UA (test Few None seen code = 40338-7) Yeast, UA (test code None seen = 83644-3) Yeast with None seen pseudohyphae, UA (test code = 81879-6) Hyaline casts, UA See_Comment [Automate d message] (test code = 5796-8) The [facility] tem which generated this result transmitted ref erence range: /LPF. Th e reference range was not used to int erpret this result as normal/abnormal . [facility]viewCreatinine level, urine, [id number] 18:04:20 Test Item Value Reference Range Interpretation Comments Creatinine, urine (mg/dL) (test code 24 mg/dL = 72412-2) [facility]viewProtein, urine, [id number] 18:04:20Protein, urine random<4mg/dL09/15/2021 12:04 [facility] [id number] 17:28:54 Test Item Value Reference Range Interpretation Comments Urine culture (test SEE COMMENT Bacteriu fabby screen code = 0868307) negative. [facility] NqaiteamRBVW-DoN-9 (COVID-19) RNA [Presence] in Respiratory specimen by RASHID with probe [id number] 15:36:10 Test Item Value Reference Range Interpretation Comments SARS-CoV-2 (COVID-19) RNA Not detected Not-Detected [Presence] in Respiratory specimen by RASHID with probe detection (test code = 03461-4) Whether patient is employed in a healthcare setting (test code = 58820-4) Whether the patient has symptoms related to condition of interest (test code = 48470-4) Patient was hospitalized because of this condition (test code = 68738-7) Whether the patient was admitted to intensive care unit (ICU) for condition of interest (test code = 62053-8) Whether patient resides in a congregate care setting (test code = 68048-0) NIKHIL HOWARDSARS-CoV-2 (COVID-19) RNA [Presence] in Respiratory specimen by RASHID with probe [id number] 00:43:55 Test Item Value Reference Range Interpretation Comments SARS-CoV-2 (COVID-19) RNA Not detected Not-Detected [Presence] in Respiratory specimen by RASHID with probe detection (test code = 88708-0) Whether patient is employed in a healthcare setting (test code = 90262-0) Whether the patient has symptoms related to condition of interest (test code = 18347-8) Patient was hospitalized because of this condition (test code = 62312-3) Whether the patient was admitted to intensive care unit (ICU) for condition of interest (test code = 77526-8) Whether patient resides in a congregate care setting (test code = 64170-4) NIKHIL VALDIVIARS-CoV-2 (COVID-19) RNA [Presence] in Respiratory specimen by RASHID with probe [id number] 21:43:32 Test Item Value Reference Range Interpretation Comments SARS-CoV-2 (COVID-19) RNA Not detected Not-Detected [Presence] in Respiratory specimen by RASHID with probe detection (test code = 80946-1) Whether patient is employed in a healthcare setting (test code = 66242-2) Whether the patient has symptoms related to condition of interest (test code = 01537-8) Patient was hospitalized because of this condition (test code = 45035-6) Whether the patient was admitted to intensive care unit (ICU) for condition of interest (test code = 97215-8) Whether patient resides in a congregate care setting (test code = 53108-0) NIKHIL HOWRAD
--- NOTE | 2022-09-07 11:57 | RAD REPORT ---
EXAM DESCRIPTION: RAD - Chest Single View - 09/07/2022 11:17 am CLINICAL HISTORY: DYSPNEA Chest pain. COMPARISON: Chest Pa And Lat (2 Views) dated 02/16/2022; Chest Single View dated 08/13/2021; Chest Sin gle View dated 03/07/2019; Chest Pa And Lat (2 Views) dated 03/05/2019 FINDINGS: Portable technique limits examination quality. Mild interstitial pulmonary edema. The heart is mildly enlarged. No displaced fractures. IMPRESSION: Mild CHF.
[2022-09-07] MEDS ORDERED: NA CHLORIDE 0.9% 1,000 ML ONE (12:04)
[2022-09-07 12:09] LABS: Absolute Lymphocytes (CBC) 0.9 K/uL (0.7-4.9); Hematocrit 39.3 % (36.0-45.0); Lymphocytes % 7.4 % (15.3-44.8); MCV 81.5 fL (80-100); RBC Red Blood Cell Count 4.82 M/uL (3.86-4.86)
[2022-09-07 12:12] LABS: Protime INR 1.58
[2022-09-07 12:28] LABS: Albumin 2.4 g/dL (3.4-5.0); Bilirubin Direct 0.3 mg/dL (0-0.2); Bilirubin Total 0.7 mg/dL (0.2-1.0); Potassium 3.1 mmol/L (3.5-5.1); Troponin High Sensitivity 19.6 pg/mL (<58.9)
[2022-09-07] MEDS ORDERED: POTASSIUM 25 MEQ EFFERV TAB ONE (12:35)
[2022-09-07] MEDS ORDERED: FUROSEMIDE 40 MG/4 ML VIAL ONE (12:35)
[2022-09-07] MEDS ORDERED: METHYLPREDNISOLONE 125 MG INJ ONE (14:10)
[2022-09-07] MEDS ORDERED: MORPHINE 2 MG/ML SYR ONE (14:10)
[2022-09-07] MEDS ORDERED: ONDANSETRON 4 MG/2 ML VIAL ONE (14:10)
--- NOTE | 2022-09-07 14:11 | ER ---
Nurse's Notes [facility] Name: Jose Maria Tavarez Age: 77 yrs Sex: Female : 1945 Arrival Date: 09/07/2022 Time: 10:42 Bed 15 Private MD: Lincoln Wise Diagnosis: Unspecified atrial flutter-4:1 CONDUCTION;Obesity, unspecified;Dyspnea;Systolic (congestive) heart failure;Hypokalemia;Unspecified kidney failure Presentation: 09/07 10:56 Chief complaint: Patient states: she was sent from her PCP's office for low SpO2. upon ap3 arrival patient was reporting shortness of breath for "a few weeks" and the Sp02 monitor was reading 76% on room air. Coronavirus screen: Client presents with at least one sign or symptom that may indicate coronavirus-19. Ebola Screen: No symptoms or risks identified at this time. Initial Sepsis Screen: Does the patient meet any 2 criteria? No. Patient's initial sepsis screen is negative. Does the patient have a suspected source of infection? No. Patient's initial sepsis screen is negative. Risk Assessment: Do you want to hurt yourself or someone else? Patient reports no desire to harm self or others. Onset of symptoms is unknown. 10:56 Method Of Arrival: Wheelchair ap3 10:56 Acuity: LUDIVINA 2 ap3 Triage Assessment: 10:59 General: Appears distressed, Behavior is cooperative. Pain: Denies pain. Neuro: Level ap3 of Consciousness is awake, alert, obeys commands, Oriented to person, place, time, situation, Speech is normal. Cardiovascular: Patient's skin is warm and dry. Respiratory: Reports shortness of breath at rest Onset: The symptoms/episode began/occurred over a few weeks, the patient has moderate shortness of breath. 11:01 Respiratory: Respiratory pattern is regular, symmetrical, tachypnea. ap3 Historical: - Allergies: 10:59 No Known Allergies; ap3 - PMHx: 10:59 a flutter; Hypertensive disorder; thyroid; Congestive heart failure; ap3 - Immunization history:: Client reports receiving the 2nd dose of the Covid vaccine. - Social history:: Smoking status: Patient denies any tobacco usage or history of. Screenin:00 Abuse screen: Denies threats or abuse. Nutritional screening: No deficits noted. ap3 Tuberculosis screening: No symptoms or risk factors identified. Fall Risk. Assessment: 11:00 Cardiovascular: Patient's skin is warm and dry. Respiratory: Airway is patent ap3 Respiratory effort is even, unlabored, Respiratory pattern is regular, tachypnea. 19:40 General: Appears comfortable, Behavior is calm, cooperative. Pain: Denies pain. Neuro: ha1 Level of Consciousness is awake, alert, obeys commands, Oriented to person, place, time, situation. Cardiovascular: Patient's skin is warm and dry. Respiratory: Airway is patent Trachea midline Respiratory effort is even, unlabored, Respiratory pattern is regular, symmetrical. GI: Abdomen is non-distended, obese. : No signs and/or symptoms were reported regarding the genitourinary system. Derm: noticed bilateral petal [place]. Musculoskeletal: Range of motion: intact in all extremities. Vital Signs: 10:56 BP 145 / 64; Pulse 58; Resp 21; Pulse Ox 76% on R/A; ap3 11:47 BP 132 / 84; Pulse 57; Pulse Ox 94% on 2.5 lpm NC; ko1 12:32 Temp 97.9(O); ko1 15:17 BP 124 / 59; Pulse 57; Pulse Ox 95% on 3 lpm NC; ko1 19:40 BP 125 / 60; Pulse 60; Resp 18 S; Pulse Ox 95% on 3 lpm NC; ha1 10:56 was then placed on nasal canula with 2 liters oxygen and her oxygen recovered quickly ap3 to 100% ED Course: 10:42 Patient arrived in ED. as 10:43 Lincoln Wsie MD is Private Physician. as 10:46 Pradeep Adams MD is Attending Physician. myriam 10:47 Dariela Wade, ALBERTO is Primary Nurse. ko1 10:59 Triage completed. ap3 11:01 Arm band placed on right wrist. ap3 11:01 Patient has correct armband on for positive identification. Bed in low position. Call ap3 light in reach. Side rails up X 1. Adult w/ patient. engine monitor on. Pulse ox on. NIBP on. Door closed. Noise minimized. Warm blanket given. 11:18 XRAY Chest (1 view) In Process Unspecified. EDMS 11:27 Flu Sent. ko1 11:27 SARS-COV-2 RT PCR (Document "Date of Onset" if Symptomatic) Sent. ko1 12:00 Inserted saline lock: 22 gauge in right upper arm, using aseptic technique. Blood ss collected. 12:02 Lactate Sent. ko1 12:02 Basic Metabolic Panel Sent. ko1 12:02 CBC with Diff Sent. ko1 12:02 LFT's Sent. ko1 12:02 Magnesium Sent. ko1 12:02 NT PRO-BNP Sent. ko1 12:02 PT-INR Sent. ko1 12:02 Troponin HS Sent. ko1 14:08 Yony Garcia MD is Hospitalizing Provider. [facility] 16:17 Blood Culture Adult (2) Sent. ko1 20:40 No provider procedures requiring assistance completed. Patient admitted, IV remains in ha1 place. Administered Medications: 12:29 Discontinued: NS 0.9% 1000 ml IV at 125 ml/hr continuous myriam 12:14 Drug: NS 0.9% 1000 ml Route: IV; Rate: 125 ml/hr; Site: right upper arm; ko1 12:37 Follow up: IV Status: IV converted to saline lock; Order to discontinue infusion ko1 12:37 Drug: Potassium Effervescent Tablet 25 mEq Route: PO; ko1 12:37 Drug: Lasix (furosemide) 40 mg Route: IVP; Site: right upper arm; ko1 14:23 Drug: Zofran (Ondansetron) 4 mg Route: IVP; Site: right upper arm; ko1 14:26 Drug: SOLU-Medrol (methylPrednisoLONE) 125 mg Route: IVP; Site: right upper arm; ko1 14:28 Drug: morphine 2 mg Route: IVP; Infused Over: 4 mins; Site: right upper arm; ko1 Medication: 20:41 VIS not applicable for this client. ha1 Outcome: 14:11 Decision to Hospitalize by Provider. myriam 20:40 Admitted to Med/surg accompanied by tech, via stretcher, room 223, with oxygen, Report ha1 called to ALBERTO Fine 20:40 Condition: stable 20:41 Patient left the ED. 1 Signatures: Dispatcher [employer] EDMS Pradeep Adams MD MD cha Martinez, Amelia as Smirch, Shelby, RN RN ss Sulema Moreland RN RN ap3 Rose Marie Brock RN RN [facility] Mauro, Dariela, RN RN ko1
--- NOTE | 2022-09-07 14:12 | EDPHYS ---
Physician Documentation [facility] Name: Jose Maria Tavarez Age: 77 yrs Sex: Female : 1945 Arrival Date: 09/07/2022 Time: 10:42 Bed 15 Private MD: Lincoln Wise ED Physician Pradeep Aadms HPI: 09/07 10:46 This 77 yrs old Female presents to ER via Unassigned with complaints of myriam Shortness Of Breath. 10:46 The patient has shortness of breath at rest. myriam Historical: - Allergies: 10:59 No Known Allergies; ap3 - PMHx: 10:59 a flutter; Hypertensive disorder; thyroid; Congestive heart failure; ap3 - Immunization history:: Client reports receiving the 2nd dose of the Covid vaccine. - Social history:: Smoking status: Patient denies any tobacco usage or history of. ROS: 13:55 Constitutional: Negative for fever, chills, and weight loss, Eyes: Negative for injury, myriam pain, redness, and discharge, ENT: Negative for injury, pain, and discharge, Neck: Negative for injury, pain, and swelling, Respiratory: Negative for shortness of breath, cough, wheezing, and pleuritic chest pain, Abdomen/GI: Negative for abdominal pain, nausea, vomiting, diarrhea, and constipation, Back: Negative for injury and pain, : Negative for injury, bleeding, discharge, and swelling, Skin: Negative for injury, rash, and discoloration, Neuro: Negative for headache, weakness, numbness, tingling, and seizure, Psych: Negative for depression, anxiety, suicide ideation, homicidal ideation, and hallucinations, Allergy/Immunology: Negative for hives, rash, and allergies, Endocrine: Negative for neck swelling, polydipsia, polyuria, polyphagia, and marked weight changes, Hematologic/Lymphatic: Negative for swollen nodes, abnormal bleeding, and unusual bruising. 13:55 Cardiovascular: Positive for orthopnea, paroxysmal nocturnal dyspnea. Exam: 13:55 Constitutional: This is a well developed, well nourished patient who is awake, alert, myriam and in no acute distress. Head/Face: Normocephalic, atraumatic. Eyes: Pupils equal round and reactive to light, extra-ocular motions intact. Lids and lashes normal. Conjunctiva and sclera are non-icteric and not injected. Cornea within normal limits. Periorbital areas with no swelling, redness, or edema. ENT: Nares patent. No nasal discharge, no septal abnormalities noted. Tympanic membranes are normal and external auditory canals are clear. Oropharynx with no redness, swelling, or masses, exudates, or evidence of obstruction, uvula midline. Mucous membranes moist. Neck: Trachea midline, no thyromegaly or masses palpated, and no cervical lymphadenopathy. Supple, full range of motion without nuchal rigidity, or vertebral point tenderness. No Meningismus. Chest/axilla: Normal chest wall appearance and motion. Nontender with no deformity. No lesions are appreciated. Respiratory: Lungs have equal breath sounds bilaterally, clear to auscultation and percussion. No rales, rhonchi or wheezes noted. No increased work of breathing, no retractions or nasal flaring. Abdomen/GI: Soft, non-tender, with normal bowel sounds. No distension or tympany. No guarding or rebound. No evidence of tenderness throughout. Back: No spinal tenderness. No costovertebral tenderness. Full range of motion. Female : Normal external genitalia. Skin: Warm, dry with normal turgor. Normal color with no rashes, no lesions, and no evidence of cellulitis. MS/ Extremity: Pulses equal, no cyanosis. Neurovascular intact. Full, normal range of motion. Neuro: Awake and alert, GCS 15, oriented to person, place, time, and situation. Cranial nerves II-XII grossly intact. Motor strength 5/5 in all extremities. Sensory grossly intact. Cerebellar exam normal. Normal gait. Psych: Awake, alert, with orientation to person, place and time. Behavior, mood, and affect are within normal limits. 13:55 Cardiovascular: Rate: bradycardic, actual rate is 57 bpm, Rhythm: regular, Pulses: Pulses are 4+ in bilateral radial, brachial, femoral, popliteal, posterior tibial and and dorsalis pedis arteries.. Heart sounds: normal, Edema: 1+ edema to level of left midcalf and right midcalf, JVD: is not appreciated. 13:55 ECG was reviewed by the Attending Physician. Vital Signs: 10:56 BP 145 / 64; Pulse 58; Resp 21; Pulse Ox 76% on R/A; ap3 11:47 BP 132 / 84; Pulse 57; Pulse Ox 94% on 2.5 lpm NC; ko1 12:32 Temp 97.9(O); ko1 15:17 BP 124 / 59; Pulse 57; Pulse Ox 95% on 3 lpm NC; ko1 19:40 BP 125 / 60; Pulse 60; Resp 18 S; Pulse Ox 95% on 3 lpm NC; ha1 10:56 was then placed on nasal canula with 2 liters oxygen and her oxygen recovered quickly ap3 to 100% MDM: 10:46 Patient medically screened. [facility] 14:03 Differential diagnosis: Anemia Anxiety Reaction CHF exacerbation, pneumonia, pulmonary myriam edema, Pulmonary Embolism reactive airway disease, Unstable Angina. Antibiotic administration: Not indicated, the patient does not have an appreciated infiltrate. The patient's Wells Deep Vein Thrombosis Score was calculated as follows: Heart Rate >100 BPM (1.5 Pts) Total Score: 0-2 Pts- Low Risk. The patient's pulmonary embolism risk score was calculated as follows: the patients heart rate is greater than 100 beats per minute (1.5 Pts) Total Score: 0-2 points. This patient was found to be at low risk for a pulmonary embolism by using the Well's assessment criteria. Immunization status: Pneumococcal vaccine: Influenza vaccine: Data reviewed: vital signs, nurses notes, lab test result(s), EKG, radiologic studies, plain films. Data interpreted: property assessment monitor: Pulse oximetry: on room air is 85 %. Test interpretation: by ED physician or midlevel provider: ECG, plain radiologic studies. Counseling: I had a detailed discussion with the patient and/or guardian regarding: the historical points, exam findings, and any diagnostic results supporting the discharge/admit diagnosis, the presence of at least one elevated blood pressure reading (>120/80) during this emergency department visit, lab results, radiology results, the need for further work-up and treatment in the hospital. 09/07 10:51 Order name: Basic Metabolic Panel; Complete Time: 12:29 [facility] 09/07 10:51 Order name: CBC with Diff; Complete Time: 12:28 [facility] 09/07 10:51 Order name: LFT's; Complete Time: 12:29 [facility] 09/07 10:51 Order name: Magnesium; Complete Time: 12:29 [facility] 09/07 10:51 Order name: NT PRO-BNP; Complete Time: 12:29 [facility] 09/07 10:51 Order name: PT-INR; Complete Time: 12:28 [facility] 09/07 10:51 Order name: Troponin HS; Complete Time: 12:29 [facility] 09/07 10:51 Order name: Flu; Complete Time: 11:53 [facility] 09/07 10:51 Order name: SARS-COV-2 RT PCR (Document "Date of Onset" if Symptomatic); Complete Time: myriam 12:28 09/07 10:51 Order name: Blood Culture Adult (2) [facility] 09/07 10:51 Order name: Lactate; Complete Time: 13:40 [facility] 09/07 16:07 Order name: Basic Metabolic Panel EDFL 09/07 16:07 Order name: Basic Metabolic Panel EDFL 09/07 16:07 Order name: CBC with Automated Diff EDFL 09/07 10:51 Order name: XRAY Chest (1 view); Complete Time: 12:28 [facility] 09/07 10:51 Order name: EKG; Complete Time: 10:52 [facility] 09/07 10:51 Order name: Cardiac monitoring; Complete Time: 11:06 [facility] 09/07 10:51 Order name: EKG - Nurse/Tech; Complete Time: 11:06 [facility] 09/07 16:07 Order name: CONS Physician Consult EDFL 09/07 16:07 Order name: Heart Healthy EDFL 09/07 16:07 Order name: Echo with Doppler EDFL 09/07 16:07 Order name: Echo with Doppler EDFL 09/07 16:07 Order name: CBC with Automated Diff EDFL 09/07 10:51 Order name: IV Saline Lock; Complete Time: 12:02 [facility] 09/07 10:51 Order name: Labs collected and sent; Complete Time: 12:02 [facility] 09/07 10:51 Order name: O2 Per Protocol; Complete Time: 11:07 [facility] 09/07 10:51 Order name: O2 Sat Monitoring; Complete Time: 11:07 [facility] EC:55 Rate is 57 beats/min. Rhythm is irregularly irregular. QRS Post is Normal. ME interval myriam is normal. QRS interval is normal. QT interval is normal. No Q waves. T waves are Normal. No ST changes noted. Clinical impression: Atrial Flutter and No evidence of ischemia. Interpreted by me. Reviewed by me. Administered Medications: 12:29 Discontinued: NS 0.9% 1000 ml IV at 125 ml/hr continuous myriam 12:14 Drug: NS 0.9% 1000 ml Route: IV; Rate: 125 ml/hr; Site: right upper arm; ko1 12:37 Follow up: IV Status: IV converted to saline lock; Order to discontinue infusion ko1 12:37 Drug: Potassium Effervescent Tablet 25 mEq Route: PO; ko1 12:37 Drug: Lasix (furosemide) 40 mg Route: IVP; Site: right upper arm; ko1 14:23 Drug: Zofran (Ondansetron) 4 mg Route: IVP; Site: right upper arm; ko1 14:26 Drug: SOLU-Medrol (methylPrednisoLONE) 125 mg Route: IVP; Site: right upper arm; ko1 14:28 Drug: morphine 2 mg Route: IVP; Infused Over: 4 mins; Site: right upper arm; ko1 Disposition Summary: 09/07/22 14:11 Hospitalization Ordered Hospitalization Status: Observation myriam Provider: Yony Garcia cha Location: Telemetry/MedSurg (observation) myriam Condition: Fair myriam Problem: new myriam Symptoms: have improved myriam Bed/Room Type: Standard myriam Room Assignment: 223(09/07/22 18:07) bd Diagnosis - Unspecified atrial flutter - 4:1 CONDUCTION myriam - Obesity, unspecified myriam - Dyspnea myriam - Systolic (congestive) heart failure myriam - Hypokalemia myriam - Unspecified kidney failure myriam Forms: - Medication Reconciliation Form myriam - SBAR form myriam Signatures: Dispatcher [employer] EDDana Mario Corey, MD MD cha Prokisch, Amanda, RN RN ap3 Dariela Wade RN RN ko1 Corrections: (The following items were deleted from the chart) 18:07 14:11 myriam bd
[2022-09-07] MEDS ORDERED: ACETAMINOPHEN 500 MG TAB PO PRN (16:03)
[2022-09-07] MEDS ORDERED: MORPHINE 2 MG/ML SYR IV PRN (16:21)
[2022-09-07] MEDS: METOPROLOL TAR 50 MG TAB PO SCH ×2 (18:50→21:00)
[2022-09-07] MEDS ORDERED: METOPROLOL TAR 50 MG TAB ONE (18:54)
[2022-09-07 22:44] VITALS: BMI 44.6
[2022-09-08 05:47] LABS: Absolute Lymphocytes (CBC) 0.5 K/uL (0.7-4.9); Hematocrit 37.8 % (36.0-45.0); MPV 7.4 fL (7.6-11.3); RBC Red Blood Cell Count 4.61 M/uL (3.86-4.86)
[2022-09-08 05:59] LABS: Potassium 3.6 mmol/L (3.5-5.1)
[2022-09-08] MEDS ORDERED: INFLUENZA VACCINE (for 6+ mo) 0.5 ML DOSE IMVAC ONE (08:00)
[2022-09-08] MEDS: METOPROLOL TAR 50 MG TAB PO SCH (09:00)
[2022-09-08] MEDS ORDERED: Enoxaparin 120 MG/0.8 ML SYR SQ SCH (09:00)
[2022-09-08 12:47] VITALS: BP 132/72; TEMP 97.2
[2022-09-08 13:54] VITALS: O2SAT 76
--- NOTE | 2022-09-08 14:19 | EKG ---
Test Date: 2022-09-07 Test Time: 11:00:39 [facility] [place]: [facility] MEASUREMENT RESULTS: Intervals: Rate: 57 ME: QRSD: 84 QT: 440 QTc: 428 [place]: P: 96 ME: QRS: 267 T: 81 INTERPRETIVE STATEMENTS: Suspect arm lead reversal, interpretation assumes no reversal Atrial flutter with 4:1 AV conduction Right superior axis deviation Pulmonary disease pattern Nonspecific ST and T wave abnormality Abnormal ECG Compared to ECG 09/07/2022 10:59:29 No significant changes Electronically Signed On 09-08-22 14:17:10 CDT by Db Watt
--- NOTE | 2022-09-08 14:49 | P.HP ---
Certification for Inpatient Patient admitted to: Inpatient With expected LOS: >2 Midnights Patient will require the following post-hospital care: None Practitioner: I am a practitioner with admitting privileges, knowledge of patient current condition, hospital course, and medical plan of care. Services: Services provided to patient in accordance with Admission requirements found in Title 42 Section 412.3 of the Code of Federal Regulations Patient History Date of Service: 09/07/22 Reason for admission: Atrial flutter with rapid ventricular response History of Present Illness: Patient is a 77-year-old female who came to the hospital with atrial flutter with rapid ventricular response. Patient's heart rate was elevated quite significantly. Patient came into the emergency room for further evaluation. Patient's heart rate came back down to normal limits. Patient is not hypoxic. Patient will be admitted for observation. Echocardiogram pending. Patient scheduled for ablation on Monday. Allergies No Known Allergies Allergy (Verified 09/07/22 22:07) - Past Medical/Surgical History Has patient received pneumonia vaccine in the past: Yes Diabetic: No -: HTN -: CHF -: COPD -: Afib/atrial flutter -: Hysterectomy -: right shoulder surgery - Family History Father Family History: Reviewed- Non-Contributory - Social History Smoking Status: Never smoker Alcohol use: No CD- Drugs: No Caffeine use: No Place of Residence: Home Review of Systems 10-point ROS is otherwise unremarkable Physical Examination - Vital Signs Temperature: 97.2 F Blood Pressure: 132/72 Pulse: 68 Respirations: 16 Pulse Ox (%): 96 - Physical Exam General: Alert, In no apparent distress, Oriented x3 HEENT: Atraumatic, PERRLA, Mucous membr. moist/pink, EOMI, Sclerae nonicteric Neck: Supple, 2+ carotid pulse no bruit, No LAD, Without JVD or thyroid abnormality Respiratory: Clear to auscultation bilaterally, Normal air movement Cardiovascular: No murmurs, Irregular heart rate/rhythm Gastrointestinal: Normal bowel sounds, Soft and benign, Non-distended, No tenderness Musculoskeletal: No clubbing, No swelling, No tenderness Integumentary: No rashes Neurological: Normal gait, Normal speech, Normal strength at 5/5 x4 extr, Normal tone, Sensation intact, Cranial nerves 3-12 intact, Normal affect Lymphatics: No axilla or inguinal lymphadenopathy - Studies Microbiology Data (last 24 hrs): 09/07/22 10:58 Nasopharnyx Influenza Type A Antigen Screen - Final 09/07/22 10:58 Nasopharnyx Influenza Type B Antigen Screen - Final Assessment & Plan - Problems (Diagnosis) (1) Atrial flutter with rapid ventricular response Current Visit: Yes Status: Acute - Plan Plan: 1. Continue with antiarrhythmic. 2. Anticoagulation on hold pending ablation 3. Arrange for home oxygen 4. Outpatient pulmonary and cardiology follow-up 5. GI DVT prophylaxis Discharge Plan: Home Plan to discharge in: Greater than 2 days - Advance Directives Does patient have a Living Will: Yes Does patient have a Durable POA for Healthcare: Yes - Code Status/Comfort Care Code Status Assessed: Yes Code Status: Full Code Critical Care: No Time Spent Managing PTS Care (In Minutes): 45
--- NOTE | 2022-09-08 14:54 | P.DS ---
Discharge Date: 09/08/22 Disposition: ROUTINE DISCHARGE Discharge Condition: GOOD Reason for Admission: Atrial flutter with rapid ventricular response - Problems (1) Atrial flutter with rapid ventricular response Current Visit: Yes Status: Acute Brief History of Present Illness: Patient is a 77-year-old female who came to the hospital with atrial flutter with rapid ventricular response. Patient's heart rate was elevated quite significantly. Patient came into the emergency room for further evaluation. Patient's heart rate came back down to normal limits. Patient is not hypoxic. Patient will be admitted for observation. Echocardiogram pending. Patient scheduled for ablation on Monday. Hospital Course: Patient scheduled for ablation in the morning. We will arrange for home oxygen as patient is hypoxic. Patient does not want any further work-up at this time. Patient wants to get her ablation done tomorrow. She will continue her Xarelto once her ablation is completed. At this time, patient is stable for discharge and will follow up with pulmonary as an outpatient. Vital Signs/Physical Exam: Temp Pulse Resp BP Pulse Ox 97.2 F 68 16 132/72 96 09/08/22 14:51 09/08/22 14:51 09/08/22 14:51 09/08/22 14:51 09/08/22 14:51 General: Alert, In no apparent distress, Oriented x3 Laboratory Data at Discharge: WBC 12.90 K/uL (4.3-10.9) H 09/08/22 05:14 Hgb 11.9 g/dL (12.0-15.0) L 09/08/22 05:14 Hct 37.8 % (36.0-45.0) 09/08/22 05:14 Plt Count 295 K/uL (152-406) 09/08/22 05:14 PT 17.4 SECONDS (9.5-12.5) H 09/07/22 12:00 INR 1.58 09/07/22 12:00 Sodium 133 mmol/L (136-145) L 09/08/22 05:14 Potassium 3.6 mmol/L (3.5-5.1) D 09/08/22 05:14 BUN 39 mg/dL (7-18) H 09/08/22 05:14 Creatinine 1.81 mg/dL (0.55-1.3) H 09/08/22 05:14 Glucose 189 mg/dL (74-106) H 09/08/22 05:14 Magnesium 2.0 mg/dL (1.8-2.4) 09/07/22 12:00 Total Bilirubin 0.7 mg/dL (0.2-1.0) 09/07/22 12:00 AST 11 U/L (15-37) L 09/07/22 12:00 ALT 16 U/L (12-78) 09/07/22 12:00 Alkaline Phosphatase 97 U/L (45-117) 09/07/22 12:00 Home Medications: Metoprolol Tartrate [Lopressor*] 50 mg PO BID #60 tab 09/08/22 New Medications: Metoprolol Tartrate [Lopressor*] 50 mg PO BID #60 tab Physician Discharge Instructions: -DC IV and DC home -Follow-up with PCP in 1 to 2 weeks -Follow-up with Pulmonary in 1 to 2 weeks for hypoxemia -Patient scheduled for ablation in a.m. with vp data -Please call Dr. Garcia at [phone] if any questions regarding hospital stay -Please call nursing station at [phone] if any nursing or medication questions -Return to the emergency room if symptoms worsen Diet: AHA Activity: Fall precautions Followup: Isabel Barnes [Primary Care Provider] - Time spent managing pt's care (in minutes): 35
--- NOTE | 2022-09-09 06:51 | ECHO ---
HEIGHT: 5 ft 4 in WEIGHT: 260 lb 0 oz DATE OF STUDY: 08/08/[address]: Yony Garcia MD 2-DIMENSIONAL: YES M.MODE: YES DOPPLER: YES COLOR FLOW: YES TDS: PORTABLE: DEFINITY: BUBBLE STUDY: DIAGNOSIS: ATRIAL FLUTTER CARDIAC HISTORY: CATHERIZATION: SURGERY: PROSTHETIC VALVE: PACEMAKER: MEASUREMENTS (cm) DIASTOLIC (NORMALS) SYSTOLIC (NORMALS) IVSd 1.1 (0.6-1.2) LA Diam 4.5 (1.9-4.0) LVEF 66% LVIDd 4.1 (3.5-5.7) LVIDs 2.6 (2.0-3.5) %FS 36% LVPWd 1.2 (0.6-1.2) Ao Diam 2.7 (2.0-3.7) 2 DIMENSIONAL ASSESSMENT: RIGHT ATRIUM: NORMAL LEFT ATRIUM: ENLARGED RIGHT VENTRICLE: NORMAL LEFT VENTRICLE: NORMAL TRICUSPID VALVE: MILD TRICUSPID REGURGITATION MITRAL VALVE: MILD MITRAL REGURGITATION PULMONIC VALVE: NORMAL AORTIC VALVE: NORMAL PERICARDIAL EFFUSION: NONE AORTIC ROOT: NORMAL LEFT VENTRICULAR WALL MOTION: NORMAL DOPPLER/COLOR FLOW: SEE BELOW COMMENTS: NORMAL LEFT VENTRICULAR EJECTION FRACTION 60-65% WITH NORMAL WALL MOTION. LEFT ATRIAL ENLARGEMENT. MILD TRICUSPID REGURGITATION/ MITRAL REGURGITATION. SEVERE PULMONARY HYPERTENSION WITH RIGHT VENTRICULAR SYSTOLIC PRESSURE GREATER THAN 60 mmHg. DIASTOLIC DYSFUNCTION. TECHNOLOGIST: REMIGIO CRUZ
--- NOTE | 2022-09-09 20:41 | CON ---
Date of Consultation: 09/08/2022 I saw the patient on 09/08/2022. Reason For Consultation: Atrial flutter. History Of Present Illness: Ms. Tavarez is a 77-year-old woman who actually had an ablation scheduled [facility] Dr. Braswell on 09/09/2022, came in with shortness of breath, flutter, and heart rates which were in the 60s. This would be her second ablation scheduled and she is feeling much better today. Denies a ny chest pain, nausea, vomiting, diaphoresis, PND, orthopnea, pedal edema, or syncope. Denied any fe vers or chills. Past Medical History: Includes hypertension, chronic diastolic congestive heart failure, paroxysmal atrial fibrillation, hypothyroidism. Review of Systems: Negative. Social History: Negative. Family History: Noncontributory. Physical Examination: Vital Signs: Stable, afebrile. HEENT: Negative. Neck: Supple with no bruit. Chest: Clear. Cardiac: Revealed atrial fibrillation, rate of 60. Abdomen: Benign. Extremities: Revealed no clubbing, cyanosis, or edema. Diagnostic Data: Creatinine is 1.81, potassium today is 3.1. BNP 2149. EKG showed atrial fibrillat ion. Chest x-ray showed mild CHF. Echocardiogram is pending. Impression And Plan: 1.Recurrent atrial fibrillation and the patient needs to be discharged today, so she can have an abl ation tomorrow and continue her present regimen. Continue Lovenox and metoprolol. Ms. Tavarez will be d ischarged today as soon as possible. 2.Her other problems include hypertension, chronic diastolic congestive heart failure, hypothyroidis m, hypokalemia, although they are stable at this point. Potassium has been supplemented. The case h as been discussed with Dr. Garcia. Again home today or late tomorrow. Follow up in the office in 2 we eks. NB/MODL Voice ID: [id number] Report ID: [id number]
== END 2022-09-08 16:15 | disposition home or self-care (01) | DRG 309 ==
LOC: ER 10:41 → ERHOLD 16:03 → 2ND 20:33
PROVIDERS: ADMIT Hospitalist; ATTEND Hospitalist
DX: I48.92 Unspecified atrial flutter (principal); I50.32 Chronic diastolic (congestive) heart failure; N17.9 Acute kidney failure, unspecified; Z68.41 Body mass index [BMI] 40.0-44.9, adult; E66.9 Obesity, unspecified; I11.0 Hypertensive heart disease with heart failure; E87.6 Hypokalemia; I48.0 Paroxysmal atrial fibrillation; E03.9 Hypothyroidism, unspecified; J44.9 Chronic obstructive pulmonary disease, unspecified; R09.02 Hypoxemia; Z79.01 Long term (current) use of anticoagulants; Z90.710 Acquired absence of both cervix and uterus; Z79.899 Other long term (current) drug therapy; Z20.822 Contact with and (suspected) exposure to COVID-19
CPT/HCPCS: 36415; 71045; 80048; 80076; 83605; 83735; 83880; 84484; 85025; 85610; 87040; 87804; 93005; 93306; 96374; 96375; 99285; J1650; J1940; J2270; J2405; J2930; J7030; U0003

== ENCOUNTER 2022-11-29 11:54 | Inpatient (IN) | payer OTHER ==
--- OUTSIDE RECORDS SUMMARY | 2022-11-29 12:00 | XMS REPORT | Continuity of Care Document ---
:1945 Author Organization [facility] t Address [address] [place] [address] Care Team Providers Name Role Phone Lincoln Wise MD Primary Care Physician José Antonio Bunch MD Attending Clinician Mariya Yanes MD Attending Clinician Dominique Lui Attending Clinician Cabrera Dyson Attending Clinician Randy BHANDARI, Arleen Whitfield Attending Clinician [phone] Juan Ramon Todd MD Attending Clinician MD JOSÉ ANTONIO BUNCH Attending Clinician Unavailable CHACORTA SANCHEZ Attending Clinician Unavailable MD MERVIN MEDLEY Attending Clinician Unavailable JOSÉ ANTONIO BUNCH Admitting Clinician Unavailable MD [...] Memoria facial facial 02:47:13 l pain pain [place] (finding) (finding) Active Problem 06/13/2022 [facility] Hypertensi Hypertens Problem Active 2022-06-13 Memoria ve isidra 02:47:13 l disorder, disorder, 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 Natural father Hyperlipidemia [facility] Natural father Hypertension [facility] Natural mother Hypertension [facility] Social History Social Habit Start Date Stop Date Quantity Comments Source Alcohol intake 2022-09-13 2022-09-13 Current drinker of [facility] 00:00:00 00:00:00 alcohol (finding) Hospita l Tobacco use and 2021-07-27 2021-07-27 Smokeless tobacco [facility] exposure 00:00:00 00:00:00 non-user Hospital Alcohol Comment 2021-07-27 2021-07-27 occasional Religion 00:00:00 00:00:00 Hospital Sex Ass[birth year] At [birth year] Religion 00:00:00 00:00:00 Hospital Smoking Status Start Date Stop Date Source Social History [facility] Medications Ordered Filled Start Stop Current Ordering Indication Dosage Frequency Signature Comments Components Source Medication Medication Date Date Medication? Clinician (SIG) Name Name fluticasone 2021-11 Yes QD Inhale 1 [facility] furoate-bethel 1-[address] anteroL 14:31: s once Hospita (BREO 04 daily. l ELLIPTA) 100-25 mcg/dose blister with device powder for inhalation torsemide 2021-11 Yes 50mg QD Take 5 Method i (DEMADEX) 1-[address] 10 MG 14:31: (50 mg Hospita tablet 04 total) by l mouth daily. fluticasone 2021-11 Yes QD Inhale 1 [facility] furoate-bethel 1-[address] anteroL 14:31: s once Hospita (BREO 04 daily. l ELLIPTA) 100-25 mcg/dose blister with device powder for inhalation torsemide 2021-11 Yes 50mg QD Take 5 [facility] (DEMADEX) 1-[address] 10 MG 14:31: (50 mg Hospita tablet 04 total) by l mouth daily. fluticasone 2021-11 Yes QD Inhale 1 [facility] furoate-bethel 1-[address] anteroL 14:31: s once [facility]ospita (BREO 04 daily. l ELLIPTA) 100-25 mcg/dose blister with device powder for inhalation torsemide 2021-11 Yes 50mg QD Take 5 [facility] (DEMADEX) 1-[address] 10 MG 14:31: (50 mg Hospita tablet 04 total) by l mouth daily. fluticasone 2021-11 Yes QD Inhale 1 [facility] furoate-bethel 1-[address] anteroL 14:31: s once [facility]ospita (BREO 04 daily. l ELLIPTA) 100-25 mcg/dose blister with device powder for inhalation torsemide 2021-11 Yes 50mg QD Take 5 [facility] (DEMADEX) 1-[address] 10 MG 14:31: (50 mg Hospita tablet 04 total) by l mouth daily. fluticasone 2021-11 Yes QD Inhale 1 [facility] furoate-bethel 1-[address] anteroL 14:31: s once Hospita (BREO 04 daily. l ELLIPTA) 100-25 mcg/dose blister with device powder for inhalation torsemide 2021-11 Yes 50mg QD Take 5 [facility] (DEMADEX) 1-[address] 10 MG 14:31: (50 mg Hospita tablet 04 total) by l mouth daily. fluticasone 2021-11 Yes QD Inhale 1 [facility] furoate-bethel 1-[address] anteroL 14:31: s once Hospita (BREO 04 daily. l ELLIPTA) 100-25 mcg/dose blister with device powder for inhalation torsemide 2021-11 Yes 50mg QD Take 5 [facility] (DEMADEX) 1-[address] 10 MG 14:31: (50 mg Hospita tablet 04 total) by l mouth daily. nebivoloL 2021-11 Yes 40mg QD Take 40 mg [facility] (BYSTOLIC) 1-[address] 20 mg 14:42: daily. Hospita tablet 56 l levothyroxi 2021-11 Yes 75ug QD Take 75 [facility] ne 1-[address] (SYNTHROID) 14:42: mouth Hospi ta 75 mcg 56 daily. l tablet rivaroxaban 2021-11 Yes 15mg QD Take 15 mg [facility] (XARELTO) 1-[address] 15 mg 14:42: daily. Hospita tablet 56 l estradioL 2021-11 Yes 1mg QD Take 1 mg [facility] (ESTRACE) 1 1-[address] MG tablet 14:42: daily. Hospit a 56 l montelukast 2021-11 Yes 10mg QD Take 10 mg [facility] (SINGULAIR) 1-[address] 10 mg 14:42: nightly. Hospita tablet 56 l fluticasone 2021-11 Yes 50ug QD 1 spray by [facility] propionate 1-[address] (FLONASE) 14:42: route Hospita 50 56 daily. l mcg/actuati on nasal spray acetaminoph 2021-11 Yes 500mg Q6H Take 500 M ethodi en 1-[address] (TYLENOL) 14:42: mouth Hospita 500 MG 56 every 6 l tablet (six) hours as needed for mild pain. nebivoloL 2021-11 Yes 40mg QD Take 40 mg [facility] (BYSTOLIC) 1-[address] 20 mg 14:42: daily. Hospita tablet 56 l levothyroxi 2021-11 Yes 75ug QD Take 75 [facility] ne 1-[address] (SYNTHROID) 14:42: mouth Hospi ta 75 mcg 56 daily. l tablet rivaroxaban 2021-11 Yes 15mg QD Take 15 mg [facility] (XARELTO) 1-[address] 15 mg 14:42: daily. Hospita tablet 56 l estradioL 2021-11 Yes 1mg QD Take 1 mg [facility] (ESTRACE) 1 1-[address] MG tablet 14:42: daily. Hospit a 56 l montelukast 2021-11 Yes 10mg QD Take 10 mg [facility] (SINGULAIR) 1-[address] 10 mg 14:42: nightly. Hospita tablet 56 l fluticasone 2021-11 Yes 50ug QD 1 spray by [facility] propionate 1-[address] (FLONASE) 14:42: route Hospita 50 56 daily. l mcg/actuati on nasal spray acetaminoph 2021-11 Yes 500mg Q6H Take 500 M ethodi en 1-[address] (TYLENOL) 14:42: mouth [facility]ospita 500 MG 56 every 6 l tablet (six) hours as needed for mild pain. nebivoloL 2021-11 Yes 40mg QD Take 40 mg [facility] (BYSTOLIC) 1-[address] 20 mg 14:42: daily. Hospita tablet 56 l levothyroxi 2021-11 Yes 75ug QD Take 75 [facility] ne 1-[address] (SYNTHROID) 14:42: mouth Hospi ta 75 mcg 56 daily. l tablet rivaroxaban 2021-11 Yes 15mg QD Take 15 mg [facility] (XARELTO) 1-[address] 15 mg 14:42: daily. Hospita tablet 56 l estradioL 2021-11 Yes 1mg QD Take 1 mg [facility] (ESTRACE) 1 1-[address] MG tablet 14:42: daily. Hospit a 56 l montelukast 2021-11 Yes 10mg QD Take 10 mg [facility] (SINGULAIR) 1-[address] 10 mg 14:42: nightly. Hospita tablet 56 l fluticasone 2021-11 Yes 50ug QD 1 spray by [facility] propionate 1-[address] (FLONASE) 14:42: route Hospita 50 56 daily. l mcg/actuati on nasal spray acetaminoph 2021-11 Yes 500mg Q6H Take 500 M ethodi en 1-[address] (TYLENOL) 14:42: mouth Hospita 500 MG 56 every 6 l tablet (six) hours as needed for mild pain. nebivoloL 2021-11 Yes 40mg QD Take 40 mg [facility] (BYSTOLIC) 1-[address] 20 mg 14:42: daily. Hospita tablet 56 l levothyroxi 2021-11 Yes 75ug QD Take 75 [facility] ne 1-[address] (SYNTHROID) 14:42: mouth Hospi ta 75 mcg 56 daily. l tablet rivaroxaban 2021-11 Yes 15mg QD Take 15 mg [facility] (XARELTO) 1-[address] 15 mg 14:42: daily. Hospita tablet 56 l estradioL 2021-11 Yes 1mg QD Take 1 mg [facility] (ESTRACE) 1 1-[address] MG tablet 14:42: daily. Hospit a 56 l montelukast 2021-11 Yes 10mg QD Take 10 mg [facility] (SINGULAIR) 1-[address] 10 mg 14:42: nightly. Hospita tablet 56 l fluticasone 2021-11 Yes 50ug QD 1 spray by [facility] propionate 1-[address] (FLONASE) 14:42: route Hospita 50 56 daily. l mcg/actuati on nasal spray acetaminoph 2021-11 Yes 500mg Q6H Take 500 M ethodi en 1-[address] (TYLENOL) 14:42: mouth Hospita 500 MG 56 every 6 l tablet (six) hours as needed for mild pain. nebivoloL 2021-11 Yes 40mg QD Take 40 mg [facility] (BYSTOLIC) 1-[address] 20 mg 14:42: daily. Hospita tablet 56 l levothyroxi 2021-11 Yes 75ug QD Take 75 [facility] ne 1-[address] (SYNTHROID) 14:42: mouth Hospi ta 75 mcg 56 daily. l tablet rivaroxaban 2021-11 Yes 15mg QD Take 15 mg [facility] (XARELTO) 1-[address] 15 mg 14:42: daily. Hospita tablet 56 l estradioL 2021-11 Yes 1mg QD Take 1 mg [facility] (ESTRACE) 1 1-[address] MG tablet 14:42: daily. Hospit a 56 l montelukast 2021-11 Yes 10mg QD Take 10 mg [facility] (SINGULAIR) 1-[address] 10 mg 14:42: nightly. Hospita tablet 56 l fluticasone 2021-11 Yes 50ug QD 1 spray by [facility] propionate 1-[address] (FLONASE) 14:42: route Hospita 50 56 daily. l mcg/actuati on nasal spray acetaminoph 2021-11 Yes 500mg Q6H Take 500 M ethodi en 1-[address] (TYLENOL) 14:42: mouth Hospita 500 MG 56 every 6 l tablet (six) hours as needed for mild pain. nebivoloL 2021-11 Yes 40mg QD Take 40 mg [facility] (BYSTOLIC) 1-[address] 20 mg 14:42: daily. Hospita tablet 56 l levothyroxi 2021-11 Yes 75ug QD Take 75 [facility] ne 1-[address] (SYNTHROID) 14:42: mouth Hospi ta 75 mcg 56 daily. l tablet rivaroxaban 2021-11 Yes 15mg QD Take 15 mg [facility] (XARELTO) 1-[address] 15 mg 14:42: daily. Hospita tablet 56 l estradioL 2021-11 Yes 1mg QD Take 1 mg [facility] (ESTRACE) 1 1-[address] MG tablet 14:42: daily. Hospit a 56 l montelukast 2021-11 Yes 10mg QD Take 10 mg [facility] (SINGULAIR) 1-[address] 10 mg 14:42: nightly. Hospita tablet 56 l fluticasone 2021-11 Yes 50ug QD 1 spray by [facility] propionate 1-[address] (FLONASE) 14:42: route Hospita 50 56 daily. l mcg/actuati on nasal spray acetaminoph 2021-11 Yes 500mg Q6H Take 500 M ethodi en 1-[address] (TYLENOL) 14:42: mouth Hospita 500 MG 56 every 6 l tablet (six) hours as needed for mild pain. allopurinoL 2021-11 No 100mg QD Take 100 [facility] (ZYLOPRIM) 1-04 11-[address] 100 MG 05:45: 00:00 mouth Hospita tablet 43 :00 daily. l allopurinoL 2021-11- No 100mg QD Take 100 [facility] (ZYLOPRIM) 1-04 11-[address] 100 MG 05:45: 00:00 mouth Hospita tablet 43 :00 daily. l allopurinoL 2021-11- No 100mg QD Take 100 [facility] (ZYLOPRIM) 1-04 11-[address] 100 MG 05:45: 00:00 mouth Hospita tablet 43 :00 daily. l allopurinoL 2021-11 No 100mg QD Take 100 [facility] (ZYLOPRIM) 1-04 11-[address] 100 MG 05:45: 00:00 mouth Hospita tablet 43 :00 daily. l allopurinoL 2021-11- No 100mg QD Take 100 [facility] (ZYLOPRIM) 1-04 11-[address] 100 MG 05:45: 00:00 mouth Hospita tablet 43 :00 daily. l allopurinoL 2021-11- No 100mg QD Take 100 [facility] (ZYLOPRIM) 1- 11-[address] 100 MG 05:45: 00:00 mouth Hospita tablet 43 :00 daily. l metOLazone 2021-11- Yes 2.5mg QD Take 1 [facility] (ZAROXOLYN) 11-[address] 2.5 MG 00:00: 05:59 (2.5 mg Hospita tablet 00 :00 total) by l mouth daily for 90 days. metOLazone 2021-11- Yes 2.5mg QD Take 1 [facility] (ZAROXOLYN) 11-[address] 2.5 MG 00:00: 05:59 (2.5 mg Hospita tablet 00 :00 total) by l mouth daily for 90 days. metOLazone 2021-11- Yes 2.5mg QD Take 1 [facility] (ZAROXOLYN) 11-[address] 2.5 MG 00:00: 05:59 (2.5 mg Hospita tablet 00 :00 total) by l mouth daily for 90 days. metOLazone 2021-11- Yes 2.5mg QD Take 1 [facility] (ZAROXOLYN) 11-[address] 2.5 MG 00:00: 05:59 (2.5 mg Hospita tablet 00 :00 total) by l mouth daily for 90 days. metOLazone 2021-11- Yes 2.5mg QD Take 1 [facility] (ZAROXOLYN) 11-[address] 2.5 MG 00:00: 05:59 (2.5 mg Hospita tablet 00 :00 total) by l mouth daily for 90 days. metOLazone 2021-11- Yes 2.5mg QD Take 1 [facility] (ZAROXOLYN) 11-[address] 2.5 MG 00:00: 05:59 (2.5 mg Hospita tablet 00 :00 total) by l mouth daily for 90 days. potassium 2021-11- No 20meq Q.5D Take 2 Meth adriana chloride 1-04 12-[address] (KLOR-CON) 00:00: 05:59 (20 mEq Hos tiffanie 10 MEQ CR 00 :00 total) by l tablet mouth 2 (two) times a day for 30 days. potassium 2021-11- No 20meq Q.5D Take 2 Meth adriana chloride 1-04 12-[address] (KLOR-CON) 00:00: 05:59 (20 mEq Hos tiffanie 10 MEQ CR 00 :00 total) by l tablet mouth 2 (two) times a day for 30 days. potassium 2021-11- No 20meq Q.5D Take 2 Meth adriana chloride 1-04 12-[address] (KLOR-CON) 00:00: 05:59 (20 mEq Hos tiffanie 10 MEQ CR 00 :00 total) by l tablet mouth 2 (two) times a day for 30 days. potassium 2021-11- No 20meq Q.5D Take 2 Meth adriana chloride 1-04 12-[address] (KLOR-CON) 00:00: 05:59 (20 mEq Hos tiffanie 10 MEQ CR 00 :00 total) by l tablet mouth 2 (two) times a day for 30 days. potassium 2021-11- No 20meq Q.5D Take 2 Meth adriana chloride 1-04 12-[address] (KLOR-CON) 00:00: 05:59 (20 mEq Hos tiffanie 10 MEQ CR 00 :00 total) by l tablet mouth 2 (two) times a day for 30 days. potassium 2021-11- No 20meq Q.5D Take 2 Meth adriana chloride 1-04 12-[address] (KLOR-CON) 00:00: 05:59 (20 mEq Hos tiffanie 10 MEQ CR 00 :00 total) by l tablet mouth 2 (two) times a day for 30 days. epinephrine 2021-11- No Q4H Inhale 1 M ethodi (PRIMATENE 11-[address] MIST INHL) 16:12: 00:00 s every 4 H ospita 11 :00 (four) l hours as needed ((max: 8 inhalation s in 24 hours)). epinephrine 2021-11- No Q4H Inhale 1 M [facility]i (PRIMATENE 11-[address] MIST INHL) 16:12: 00:00 s every 4 H ospita 11 :00 (four) l hours as needed ((max: 8 inhalation s in 24 hours)). epinephrine 2021-11- No Q4H Inhale 1 M [facility]i (PRIMATENE 11-08- inhalation st MIST INHL) 16:12: 00:00 s every 4 H ospita 11 :00 (four) l hours as needed ((max: 8 inhalation s in 24 hours)). epinephrine 2021-11- No Q4H Inhale 1 M [facility]i (PRIMATENE 11-[address] [facility]IST INHL) 16:12: 00:00 s every 4 H ospita 11 :00 (four) l hours as needed ((max: 8 inhalation s in 24 hours)). epinephrine 2021-11- No Q4H Inhale 1 M [facility] (PRIMATENE 11-[address] [facility] INHL) 16:12: 00:00 s every 4 H ospita 11 :00 (four) l hours as needed ((max: 8 inhalation s in 24 hours)). epinephrine 2021-11- No Q4H Inhale 1 M [facility]i (PRIMATENE 11-[address] M[facility] INHL) 16:12: 00:00 s every 4 H ospita 11 :00 (four) l hours as needed ((max: 8 inhalation s in 24 hours)). nebivoloL 2020-11 Yes 40mg QD Take 40 [...] Q.5D Take 1 Metho di 0.6 mg -[address] tablet 00:00: (0.6 mg Hospita 00 total) by l mouth 2 (two) times a day as needed (Post ablation chest pain). colchicine 2020-11- No .6mg Q.5D Take 1 Meth adriana 0.6 mg 11-[address] tablet 00:00: 00:00 (0.6 mg Hospita 00 :00 total) by l mouth 2 (two) times a day as needed (Post ablation chest pain). colchicine 2020-11- No .6mg Q.5D Take 1 Meth adriana 0.6 mg 11-[address] tablet 00:00: 00:00 (0.6 mg Hospita 00 :00 total) by l mouth 2 (two) times a day as needed (Post ablation chest pain). colchicine 2020-11- No .6mg Q.5D Take 1 Meth adriana 0.6 mg 11-[address] tablet 00:00: 00:00 (0.6 mg Hospita 00 :00 total) by l mouth 2 (two) times a day as needed (Post ablation chest pain). colchicine 2020-11- No .6mg Q.5D Take 1 Meth adriana 0.6 mg 11-[address] tablet 00:00: 00:00 (0.6 mg Hospita 00 :00 total) by l mouth 2 (two) times a day as needed (Post ablation chest pain). colchicine 2020-11- No .6mg Q.5D Take 1 Meth adriana 0.6 mg 11-[address] tablet 00:00: 00:00 (0.6 mg Hospita 00 :00 total) by l mouth 2 (two) times a day as needed (Post ablation chest pain). colchicine 2020-11 No .6mg Q.5D Take 1 Meth adriana 0.6 mg 11-[address] tablet 00:00: 00:00 (0.6 mg Hospita 00 :00 total) by l mouth 2 (two) times a day as needed (Post ablation chest pain). alum-mag 2020-11 No 30mL [id number] Take 30 mL [facility] hydroxide-s 11-17 [id number] by mouth [address] imeth 00:00: 05:59 3D (three) Hospita (MAALOX 00 :00 times a l PLUS) day for 30 200-200-20 days. mg/5 mL suspension pantoprazol 2020-11 40mg Q.5D Take 1 Met [facility] e 11-17 tablet (40 st (Protonix) 00:00: 05:59 mg total) H ospita 40 MG EC 00 :00 by mouth 2 l tablet (two) times a day for 30 days. ondansetron 2020-11 No 4mg Q8H Take 1 Met [facility]odi ODT 0-16 -16 tablet (4 st (ZOFRAN-ODT 00:00: 05:59 mg [...] 200mg QD Take 1 Meth adriana (PACERONE) 07-[address] 200 MG 00:00: (200 mg Hospita tablet 00 total) by l mouth daily. amIODarone 2021- No 200mg QD Take 1 [facility] (PACERONE) 07-[address] 200 MG 00:00: 00:00 (200 mg Hospita tablet 00 :00 total) by l mouth daily. amIODarone 2021- No 200mg QD Take 1 Met [facility] (PACERONE) 07-[address] 200 MG 00:00: 00:00 (200 mg Hospita tablet 00 :00 total) by l mouth daily. amIODarone 2021- No 200mg QD Take 1 Met [facility] (PACERONE) 07-[address] 200 MG 00:00: 00:00 (200 mg Hospita tablet 00 :00 total) by l mouth daily. amIODarone 2021- No 200mg QD Take 1 Met [facility] (PACERONE) 07-[address] 200 MG 00:00: 00:00 (200 mg Hospita tablet 00 :00 total) by l mouth daily. amIODarone 2021- No 200mg QD Take 1 Met [facility] (PACERONE) 07-[address] 200 MG 00:00: 00:00 (200 mg Hospita tablet 00 :00 total) by l mouth daily. amIODarone 2021- No 200mg QD Take 1 Met [facility] (PACERONE) 07-[address] 200 MG 00:00: 00:00 (200 mg Hospita tablet 00 :00 total) by l mouth daily. amitriptyli Yes 10 mg = 1 M emoria ne 10 mg 2-04 tab, PO, l oral tablet 23:11: Bedtime, # [place] 00 90 tab, 2 Refill(s), Pharmacy: [facility]/pharma cy #[id number] amitriptyli 2020-0 Yes 10 mg = 1 M emoria ne 10 mg 2-04 tab, PO, l oral tablet 23:11: Bedtime, # [place] 00 90 tab, 2 Refill(s), Pharmacy: [facility]/pharma cy #[id number] amitriptyli 2020-0 Yes 10 mg = 1 M emoria ne 10 mg 2-04 tab, PO, l oral tablet 23:11: Bedtime, # [place] 00 90 tab, 2 Refill(s), Pharmacy: [facility]arma cy #[id number] amitriptyli 2020-0 Yes 10 mg = 1 M emoria ne 10 mg 2-04 tab, PO, l oral tablet 23:11: Bedtime, # [place] 00 90 tab, 2 Refill(s), Pharmacy: [facility] cy #[id number] amitriptyli 2020-0 Yes 10 mg = 1 M emoria ne 10 mg 2-04 tab, PO, l oral tablet 23:11: Bedtime, # [place] 00 90 tab, 2 Refill(s), Pharmacy: [facility]/pharma cy #[id number] amitriptyli 2020-0 Yes 10 mg = 1 M emoria ne 10 mg 2-04 tab, PO, l oral tablet 23:11: Bedtime, # [place] 00 90 tab, 2 Refill(s), Pharmacy: [facility]/pharma cy #[id number] amitriptyli 2020-0 Yes 10 mg = 1 M emoria ne 10 mg 2-04 tab, PO, l oral tablet 23:11: Bedtime, # [place] 00 90 tab, 2 Refill(s), Pharmacy: [facility]/pharma cy #[id number] amitriptyli 2020-0 Yes 10 mg = 1 M emoria ne 10 mg 2-04 tab, PO, l oral tablet 23:11: Bedtime, # [place] 00 90 tab, 2 Refill(s), Pharmacy: [facility]arma cy #[id number] amitriptyli 2020-0 Yes 10 mg = 1 M emoria ne 10 mg 2-04 tab, PO, l oral tablet 23:11: Bedtime, # [place] 00 90 tab, 2 Refill(s), Pharmacy: [facility]/[employer] #[id number] amitriptyli 2020-0 Yes 10 mg = 1 M emoria ne 10 mg 2-04 tab, PO, l oral tablet 23:11: Bedtime, # [place] 00 90 tab, 2 Refill(s), Pharmacy: [facility] [facility] #[id number] amitriptyli 2020-0 Yes 10 mg = 1 M emoria ne 10 mg 2-04 tab, PO, l oral tablet 23:11: Bedtime, # [place] 00 90 tab, 2 Refill(s), Pharmacy: [facility]/[employer] #[id number] amitriptyli 2020-0 Yes 10 mg = 1 M emoria ne 10 mg 2-04 tab, PO, l oral tablet 23:11: Bedtime, # [place] 00 90 tab, 2 Refill(s), [id number] amitriptyli 2020-0 Yes 10 mg = 1 M emoria ne 10 mg 2-04 tab, PO, l oral tablet 23:11: Bedtime, # [place] 00 90 tab, 2 Refill(s), Pharmacy: [facility]/[employer] #[id number] amitriptyli 2020-0 Yes 10 mg = 1 M emoria ne 10 mg 2-04 tab, PO, l oral tablet 23:11: Bedtime, # [place] 00 90 tab, 2 Refill(s), [id number] amitriptyli 2020-0 Yes 10 mg = 1 M emoria ne 10 mg 2-04 tab, PO, l oral tablet 23:11: Bedtime, # [place] 00 90 tab, 2 Refill(s), [id number] torsemide 2020-0 Yes 20 mg, PO, Me moria 2-04 Daily, # l 22:37: 20 tab, 0 [place] 00 Refill(s) fluticasone 2020-0 Yes 50 Memori a propionate 2-04 microgram, l 22:37: INHALATION [place] 00 , Daily, 0 Refill(s) Synthroid 2020-0 Yes 75 Memoria 2-04 microgram, l 22:37: PO, Daily, [place] 00 0 Refill(s) Amitriptyli 2020-0 No 20 mg, PO, Memoria ne 2-04 Bedtime, 0 l 22:37: Refill(s) Allopurinol 2020-0 Yes 300 mg, Mem oria 2-04 PO, Daily, l 22:37: 0 Refill(s) Xarelto 2020-0 Yes 15 mg, PO, Orlin fabby 2-04 Daily, 0 l 22:37: Refill(s) [place] Losartan 2020-0 Yes 100 mg, Memori a [...] INHALATION 00 , Daily, 0 Refill(s) Synthroid 2019-0 [...] 2-04 Daily, 0 l 22:37: Refill(s) [place] Losartan 2020-0 Yes 100 mg, Memori a [...] a propionate 2-04 microgram, l 22:37: INHALATION [place] 00 , Daily, 0 Refill(s) Synthroid 2020-0 [...] Daily, # l 22:37: 20 tab, 0 [place] 00 Refill(s) fluticasone 2020-0 Yes 50 Memori a propionate 2-04 microgram, l 22:37: INHALATION [place] 00 , Daily, 0 Refill(s) Synthroid 2020-0 Yes 75 Memoria 2-04 microgram, l 22:37: PO, Daily, [place] 00 0 Refill(s) Losartan 2020-0 Yes 100 mg, Memori a 2-04 PO, Daily, l 22:37: 0 [place] 00 Refill(s) Amitriptyli 2020-0 No 20 mg, PO, Memoria ne 2-04 Bedtime, 0 l 22:37: Refill(s) Allopurinol 2020-0 Yes 300 mg, Mem oria 2-04 PO, Daily, l 22:37: 0 [place] 00 Refill(s) Xarelto 2020-0 Yes 15 mg, PO, Orlin fabby 2-04 Daily, 0 l 22:37: Refill(s) Losartan 2020-0 Yes 100 mg, Memori a 2-04 PO, Daily, l 22:37: 0 [place] 00 Refill(s) Bystolic 2020-0 Yes 20 mg, [...] Memoria 2-04 microgram, l 22:37: PO, Daily, [place] 00 0 Refill(s) Bystolic 2019-0 Yes 20 mg, PO, Mem oria 2-04 BID, 0 l 22:37: Refill(s) Amitriptyli 2019-0 No 20 mg, PO, [...] a propionate 2-04 microgram, l 22:37: INHALATION , Daily, 0 Refill(s) Synthroid 2019-0 Yes 75 Memoria 2-04 microgram, l 22:37: PO, Daily, 0 Refill(s) montelukast 2019-0 Yes 10 mg, PO, Memoria 2-04 Daily, 0 l 22:37: Refill(s) Amitriptyli 2019-0 No 20 mg, PO, [...] a propionate 2-04 microgram, l 22:37: INHALATION [place] 00 , Daily, 0 Refill(s) Synthroid 2020-0 Yes 75 Memoria 2-04 microgram, l 22:37: PO, Daily, 0 Refill(s) torsemide 2020-0 Yes 20 mg, PO, Me moria 2-04 Daily, # l 22:37: 20 tab, 0 Refill(s) Amitriptyli 2020-0 No 20 mg, [...] a propionate 2-04 microgram, l 22:37: INHALATION [place] 00 , Daily, 0 Refill(s) Synthroid 2020-0 Yes 75 Memoria 2-04 microgram, l 22:37: PO, Daily, [place] 00 0 Refill(s) fluticasone 2020-0 Yes 50 Memori a propionate 2-04 microgram, l 22:37: INHALATION [place] 00 , Daily, 0 Refill(s) Amitriptyli 2020-0 No 20 mg, PO, Memoria ne 2-04 Bedtime, 0 l 22:37: Refill(s) Allopurinol 2020-0 Yes 300 mg, Mem oria 2-04 PO, Daily, l 22:37: 0 [place] 00 Refill(s) Xarelto 2020-0 Yes 15 mg, PO, Orlin fabby 2-04 Daily, 0 l 22:37: Refill(s) Losartan 2020-0 Yes 100 mg, Memori a 2-04 PO, Daily, l 22:37: 0 Refill(s) Bystolic 2020-0 Yes 20 mg, PO, Mem oria 2-04 BID, 0 l 22:37: Refill(s) Losartan 2020-0 Yes [...] fabby 2-04 Daily, 0 l 22:37: Refill(s) montelukast 2020-0 Yes 10 mg, PO, Memoria 2-04 Daily, 0 l 22:37: Refill(s) torsemide 2020-0 Yes 20 mg, PO, Me moria 2-04 Daily, # l 22:37: 20 tab, 0 Refill(s) fluticasone 2020-0 Yes 50 Memori a propionate 2-04 microgram, l 22:37: INHALATION [place] 00 , Daily, 0 Refill(s) Synthroid 2020-0 Yes 75 Memoria 2-04 microgram, l 22:37: PO, Daily, 0 Refill(s) Synthroid 2020-0 Yes 75 Memoria 2-04 microgram, l 22:37: PO, Daily, [place] 00 0 Refill(s) Amitriptyli 2019-0 No 20 [...] a propionate 2-04 microgram, l 22:37: INHALATION [place] 00 , Daily, 0 Refill(s) Synthroid 2020-0 Yes 75 Memoria 2-04 microgram, l 22:37: PO, Daily, [place] 00 0 Refill(s) Amitriptyli 2019-0 No 20 mg, PO, Memoria ne 2-04 Bedtime, 0 l 22:37: Refill(s) Amitriptyli 2020-0 No 20 mg, PO, Memoria ne 2-04 Bedtime, 0 l 22:37: Refill(s) Allopurinol 2020-0 Yes 300 mg, Mem oria 2-04 PO, Daily, l 22:37: 0 Refill(s) Xarelto 2020-0 Yes 15 mg, PO, Orlin fabby 2-04 Daily, 0 l 22:37: Refill(s) Allopurinol 2020-0 Yes [...] a propionate 2-04 microgram, l 22:37: INHALATION , Daily, 0 Refill(s) Synthroid 2019-0 Yes 75 Memoria 2-04 microgram, l 22:37: PO, Daily, [place] 00 0 Refill(s) Amitriptyli 2019-0 No 20 [...] Memoria 2-04 Daily, 0 l 22:37: Refill(s) Sigifredo 00 Vital Signs Vital Name Observation Time Observation Value Comments Source Systolic blood 2022-09-09 18:30:00 159 mm[Hg] Method is Hospital pressure Diastolic blood 2022-09-09 18:30:00 67 mm[Hg] [facility] pressure Heart rate 2022-09-09 18:30:00 58 /min [facility] Respiratory rate 2022-09-09 18:30:00 19 /min [facility] Oxygen saturation in 2022-09-09 18:30:00 95 /min [facility] Arterial blood by Pulse oximetry Body temperature 2022-09-09 15:15:00 36.22 Ann-Marie [facility] Body height 2022-09-09 10:50:[address] [facility] Body weight 2022-09-09 10:50:[address] [facility] BMI 2022-09-09 10:50:00 48.33 kg/m2 [facility] Heart rate 2021-09-17 23:30:00 68 /min [facility] Respiratory rate 2021-09-17 23:30:00 28 /min [facility] Oxygen saturation in 2021-09-17 23:30:00 95 /min [facility] Arterial blood by Pulse oximetry Systolic blood 2021-09-17 23:15:00 111 mm[Hg] Method [facility] pressure Diastolic blood 2021-09-17 23:15:00 54 mm[Hg] [facility] pressure Body temperature 2021-09-17 20:33:00 36.5 Ann-Marie [facility] Body height 2021-09-17 15:22:[address] [facility] Body weight 2021-09-17 15:22:[address] [facility] BMI 2021-09-17 15:22:00 45.14 kg/m2 [facility] Systolic (mm Hg) 2020-12-15 16:25:00 Orlin rial Sigifredo Diastolic (mm Hg) 2020-12-15 16:25:00 [facility] orial Sigifredo Heart Rate 2020-12-15 16:25:00 [facility] Height 2020-12-15 16:25:00 162.56 cm [facility] Weight 2020-12-15 16:25:00 Fabiola Sigifredo BMI Calculated 2020-12-15 16:25:00 Tyler patel Sigifredo Systolic (mm Hg) 2019-12-10 22:30:00 Orlin Rogersann Diastolic (mm Hg) 2019-12-10 22:30:00 Ernesto jeronimo [facility] Rate 2019-12-10 22:30:00 [facility] Respitory Rate 2019-12-10 22:30:00 Tyler patel [facility] Height 2019-12-10 22:30:00 162.56 cm Fabiola Sigifredo Weight 2019-12-10 22:30:00 Fabiola Sigifredo BMI Calculated 2019-12-10 22:30:00 Tyler Warner Procedures Procedure Date / Time Performing Clinician Source Performed BASIC METABOLIC PANEL 2022-09-28 18:22:00 José Antonio Bunch [facility] MAGNESIUM LEVEL 2022-09-28 18:22:00 José Antonio Bunch spital ESTIMATED GFR 2022-09-28 18:22:00 José Antonio Bunch spital ACTIVATED CLOTTING TIME 2022-09-09 15:31[facility] 2022-09-09 15:10:37 José Antonio Bunch spital EP COMPLETE EP STUDY W 2022-09-09 15:04:53 [facility] PULMONARY VEIN ACTIVATED CLOTTING TIME 2022-09-09 15:02:00 [facility] 2022-09-09 14:33:00 [facility] ACT[facility]OTT[facility] 2022-09-09 14:04:00 [facility] ART[facility] 2022-09-09 13:14:43 Silver Joe spital [place] AN ELECTIVE 2022-09-09 12:53:00 Silver Joe spital ENDOTRACHEAL AIRWAY ESTIMATED GFR 2022-09-09 11:14:00 José Antonio Bunch spital POC PANEL 2022-09-09 11:14:00 José Antonio Bunch spital TYPE AND SCREEN 2022-09-09 11:08:00 José Antonio Bunch spital ECG PRE/POST OP 2022-09-09 10:35:59 Michaelle [facility] spital COVID-19 QUALITATIVE 2022-09-05 16:55:00 Michaelle [facility] RT-PCR PROTHROMBIN TIME WITH INR 2022-09-05 16:55:00 Michaelle [facility] MAGNESIUM LEVEL 2022-09-05 16:55:00 Michaelle [facility] spital CBC WITH PLATELET AND 2022-09-05 16:55:00 Michaelle, [facility] DIFFERENTIAL COMPREHENSIVE METABOLIC 2022-09-05 16:55:00 Michaelle [facility] PANEL ESTIMATED GFR 2022-09-05 16:55:00 Michaelle [facility] spital ECG 12-LEAD 2021-09-17 21:44:18 Michaelle [facility] spital ACTIVATED CLOTTING TIME 2021-09-17 20:56:00 Michaelle, [facility] POC GLUCOSE 2021-09-17 20:50:00 Michaelle [facility] spital ACTIVATED CLOTTING TIME 2021-09-17 20:44:00 Famarvin, [facility] ACTIVATED CLOTTING TIME 2021-09-17 20:27:00 Michaelle, [facility] EP COMPLETE EP STUDY W 2021-09-17 19:59:59 Michaelle, [facility] ABLATION PULMONARY VEIN ACTIVATED CLOTTING TIME 2021-09-17 19:50:00 Michaelle, [facility] ARTERIAL BLOOD GAS, 2021-09-17 19:35:00 Michaelle [facility] CORRECTED SODIUM LEVEL, SYRINGE 2021-09-17 19:35:00 Michaelle, [facility] POTASSIUM, SYRINGE 2021-09-17 19:35:00 Michaelle, [facility] IONIZED CALCIUM, ARTERIAL 2021-09-17 19:35:00 Michaelle [facility] HEMOGLOBIN, SYRINGE 2021-09-17 19:35:00 Michaelle [facility] GLUCOSE LEVEL, SYRINGE 2021-09-17 19:35:00 Michaelle [facility] ACTIVATED CLOTTING TIME 2021-09-17 19:10:00 Michaelle, [facility] ARTERIAL LINE 2021-09-17 [facility]:03:[facility] [place] [facility] 2021-09-17 18:02:[facility] [place] ECG PRE/POST OP 2021-09-17 16:32:40 José Antonio Bunch spital PROTHROMBIN TIME WITH INR 2021-09-17 15:56:00 José Antonio Bunch [facility] TYPE AND SCREEN 2021-09-17 15:56:00 José Antonio Bunch spital URINE CULTURE 2021-09-15 16:17:00 [facility] URINALYSIS SCREEN AND 2021-09-15 16:17:00 [facility] MICROSCOPY, WITH REFLEX TO CULTURE CREATININE LEVEL, URINE, 2021-09-15 16:17:00 [facility] RANDOM PROTEIN, URINE, RANDOM 2021-09-15 16:17:00 [facility] COVID-19 QUALITATIVE 2021-09-15 16:10:00 Michaelle [facility] RT-PCR PROTHROMBIN TIME WITH INR 2021-09-15 16:10:00 José Antonio Bunch [facility] MAGNESIUM LEVEL 2021-09-15 16:10:00 José Antonio Bunch spital HC COMPLETE BLD COUNT 2021-09-15 16:10:00 José Antonio Bunch [facility] W/AUTO DIFF COMPREHENSIVE METABOLIC 2021-09-15 16:10:00 Michaelle José Antonio [facility] PANEL ESTIMATED GFR 2021-09-15 16:10:00 [facility]OS[facility] 2021-09-15 16:10:00 [facility] of Care Planned Activity Planned Date Details Comments Source Future Scheduled 2022-11-21 65+ PNEUMOCOCCAL [facility] Test 14:37:33 VACCINE (1 - PCV) [code = 65+ PNEUMOCOCCAL VACCINE (1 - PCV)] Future Scheduled 2022-11-21 Hepatitis C screening [facility] Test 14:37:33 (procedure) [code = 615081298] Future Scheduled 2022-11-21 SHINGLES VACCINES (1 Met [facility] Test 14:37:33 of 2) [code = SHINGLES VACCINES (1 of 2)] Future Scheduled 2022-11-21 COLONOSCOPY SCREENING [facility] Test 14:37:33 [code = COLONOSCOPY SCREENING] Future Scheduled 2022-11-21 BREAST CANCER [facility] Test 14:37:33 SCREENING [code = BREAST CANCER SCREENING] Future Scheduled 2022-11-21 COVID-19 VACCINE (4 - Me [facility] Test 14:37:33 Booster for Moderna series) [code = COVID-19 VACCINE (4 - Booster for Moderna series)] Future Scheduled 2022-11-21 INFLUENZA VACCINE Method [facility] Hospital Test 14:37:33 [code = INFLUENZA VACCINE] Future Scheduled 2022-11-21 65+ PNEUMOCOCCAL Methodi [facility] Test 14:37:33 VACCINE (1 - PCV) [code = 65+ PNEUMOCOCCAL VACCINE (1 - PCV)] Future Scheduled 2022-11-21 Hepatitis C screening [facility] Test 14:37:33 (procedure) [code = 032669744] Future Scheduled 2022-11-21 SHINGLES VACCINES (1 Met [facility] Test 14:37:33 of 2) [code = SHINGLES VACCINES (1 of 2)] Future Scheduled 2022-11-21 COLONOSCOPY SCREENING [facility] Test 14:37:33 [code = COLONOSCOPY SCREENING] Future Scheduled 2022-11-21 BREAST CANCER [facility] Test 14:37:33 SCREENING [code = BREAST CANCER SCREENING] Future Scheduled 2022-11-21 COVID-19 VACCINE (4 - Me [facility] Test 14:37:33 Booster for Moderna series) [code = COVID-19 VACCINE (4 - Booster for Moderna series)] Future Scheduled 2022-11-21 INFLUENZA VACCINE [facility] Test 14:37:33 [code = INFLUENZA VACCINE] Future Scheduled 2022-11-08 65+ PNEUMOCOCCAL [facility] Hospital Test 13:11:39 VACCINE (1 - PCV) [code = 65+ PNEUMOCOCCAL VACCINE (1 - PCV)] Future Scheduled 2022-11-08 Hepatitis C screening [facility] Test 13:11:39 (procedure) [code = [id number]] Future Scheduled 2022-11-08 SHINGLES VACCINES (1 Met [facility] Test 13:11:39 of 2) [code = SHINGLES VACCINES (1 of 2)] Future Scheduled 2022-11-08 COLONOSCOPY SCREENING [facility] Test 13:11:39 [code = COLONOSCOPY SCREENING] Future Scheduled 2022-11-08 BREAST CANCER [facility] Test 13:11:39 SCREENING [code = BREAST CANCER SCREENING] Future Scheduled 2022-11-08 COVID-19 VACCINE (4 - Me [facility] Test 13:11:39 Booster for Moderna series) [code = COVID-19 VACCINE (4 - Booster for Moderna series)] Future Scheduled 2022-11-08 INFLUENZA VACCINE Method [facility] Hospital Test 13:11:39 [code = INFLUENZA VACCINE] Future Scheduled 2022-11-08 65+ [facility] 13:11:39 VACCINE (1 - PCV) [code = 65+ PNEUMOCOCCAL VACCINE (1 - PCV)] Future Scheduled 2022-11-08 Hepatitis C screening [facility] Test 13:11:39 (procedure) [code = [id number]] Future Scheduled 2022-11-08 SHINGLES VACCINES (1 Met [facility] Test 13:11:39 of 2) [code = SHINGLES VACCINES (1 of 2)] Future Scheduled 2022-11-08 COLONOSCOPY SCREENING [facility] Test 13:11:39 [code = COLONOSCOPY SCREENING] Future Scheduled 2022-11-08 BREAST CANCER [facility] Test 13:11:39 SCREENING [code = BREAST CANCER SCREENING] Future Scheduled 2022-11-08 COVID-19 VACCINE (4 - [facility] Test 13:11:39 Booster for Moderna series) [code = COVID-19 VACCINE (4 - Booster for Moderna series)] Future Scheduled 2022-11-08 INFLUENZA VACCINE Method [facility] Hospital Test 13:11:39 [code = INFLUENZA VACCINE] Future Scheduled 2022-11-08 65+ PNEUMOCOCCAL [facility] Hospital Test 13:11:39 VACCINE (1 - PCV) [code = 65+ PNEUMOCOCCAL VACCINE (1 - PCV)] Future Scheduled 2022-11-08 Hepatitis C screening [facility] Test 13:11:39 (procedure) [code = 427466891] Future Scheduled 2022-11-08 SHINGLES VACCINES (1 Met [facility] Test 13:11:39 of 2) [code = SHINGLES VACCINES (1 of 2)] Future Scheduled 2022-11-08 COLONOSCOPY SCREENING [facility] Test 13:11:39 [code = COLONOSCOPY SCREENING] Future Scheduled 2022-11-08 BREAST CANCER [facility] Test 13:11:39 SCREENING [code = BREAST CANCER SCREENING] Future Scheduled 2022-11-08 COVID-19 VACCINE (4 - Me [facility] Test 13:11:39 Booster for Moderna series) [code = COVID-19 VACCINE (4 - Booster for Moderna series)] Future Scheduled 2022-11-08 INFLUENZA VACCINE Method [facility] Hospital Test 13:11:39 [code = INFLUENZA VACCINE] Future Scheduled 2022-11-08 65+ [facility]AL [facility] 13:11:39 VACCINE (1 - PCV) [code = 65+ PNEUMOCOCCAL VACCINE (1 - PCV)] Future Scheduled 2022-11-08 Hepatitis C screening [facility] Test 13:11:39 (procedure) [code = [id number]] Future Scheduled 2022-11-08 SHINGLES VACCINES (1 Met [facility] Test 13:11:39 of 2) [code = SHINGLES VACCINES (1 of 2)] Future Scheduled 2022-11-08 COLONOSCOPY SCREENING [facility] Test 13:11:39 [code = COLONOSCOPY SCREENING] Future Scheduled 2022-11-08 BREAST CANCER [facility] Test 13:11:39 SCREENING [code = BREAST CANCER SCREENING] Future Scheduled 2022-11-08 COVID-19 VACCINE (4 - Me [facility] Test 13:11:39 Booster for Moderna series) [code = COVID-19 VACCINE (4 - Booster for Moderna series)] Future Scheduled 2022-11-08 INFLUENZA VACCINE Method [facility] Hospital Test 13:11:39 [code = INFLUENZA VACCINE] Future Scheduled 2022-09-07 HEPATITIS B VACCINES Met [facility] Test 08:50:53 (1 of 3 - 3-dose series) [code = HEPATITIS B VACCINES (1 of 3 - 3-dose series)] Future Scheduled 2022-09-07 65+ [facility] 08:50:53 VACCINE (1 - PCV) [code = 65+ PNEUMOCOCCAL VACCINE (1 - PCV)] Future Scheduled 2022-09-07 Hepatitis C screening [facility] Test 08:50:53 (procedure) [code = [id number]] Future Scheduled 2022-09-07 SHINGLES VACCINES (1 Met [facility] Test 08:50:53 of 2) [code = SHINGLES VACCINES (1 of 2)] Future Scheduled 2022-09-07 COLONOSCOPY SCREENING [facility] Test 08:50:53 [code = COLONOSCOPY SCREENING] Future Scheduled 2022-09-07 BREAST CANCER [facility] Test 08:50:53 SCREENING [code = BREAST CANCER SCREENING] Future Scheduled 2022-09-07 COVID-19 VACCINE (4 - Me [facility] Test 08:50:53 Booster for Moderna series) [code = COVID-19 VACCINE (4 - Booster for Moderna series)] Future Scheduled 2022-09-07 INFLUENZA VACCINE Method [facility] Hospital Test 08:50:53 [code = INFLUENZA VACCINE] Encounters Start End Encounter Admission Attending Care Care Encounter Source Date/Time Date/Time Type Type Clinicians Facility Department ID 2022-09-28 2022-09-28 Lab José Antonio Bunch 1.2.840.1 [id number] Methodi 12:05:00 12:10:[address] 3.430.2.7 Hospit a .3.127668 l .8 2022-09-28 2022-09-28 Lab José Antonio Bunch 1.2.840.1 [id number] Methodi 12:05:00 12:10:[address] 3.430.2.7 Hospit a .3.209808 l .8 2022-09-28 2022-09-28 Travel 1.2.840.1 1.2.562.896 6805 [id number] Methodi 00:00:00 00:00:[address] 3.430.2.7 0.2.7.3.698 Ho spita .3.198612 084.8 l .8 2022-09-28 2022-09-28 Travel 1.2.840.1 1.2.907.908 5210 [id number] Methodi 00:00:00 00:00:[address] 3.430.2.7 0.2.7.3.698 Ho spita .3.058043 084.8 l .8 2022-09-09 2022-09-09 [facility] José Antonio Bunch 1.2.840.1 [id number] 21 [id number] Methodi 05:17:00 14:31:[address] 3.430.2.7 Hospit a .3.991746 l .8 2022-09-09 2022-09-09 [facility] José Antonio Bunch 1.2.840.1 [id number] 21 [id number] Methodi 05:17:00 14:31:[address] 3.430.2.7 Hospit a .3.629828 l .8 2022-09-09 2022-09-09 [facility] José Antonio Bunch 1.2.840.1 [id number] Methodi 07:15:00 11:20:[address] 3.430.2.7 Hospit a .3.712537 l .8 2022-09-09 2022-09-09 Surgery José Antonio wong 1.2.840.1 [id number] Methodi 07:15:00 11:20:[address] 3.430.2.7 Hospit a .3.686165 l .8 2022-09-09 2022-09-09 Anesthesia Mariya Yanes 1.2.840.1 1040 [id number] Methodi 07:36:00 10:20:00 Event Dominique Lui 50869.1.[address] 3.430.2.7 Hospit a .3.398269 l .8 2022-09-09 2022-09-09 Anesthesia Mariya Yanes 1.2.840.1 1040 27006 [id number] Methodi 07:36:00 10:20:00 Event Dominique Lui 68761.1.[address] 3.430.2.7 Hospit a .3.799921 l .8 2022-09-09 2022-09-09 Travel 1.2.840.1 1.2.169.783 5312 [id number] Methodi 00:00:00 00:00:[address] 3.430.2.7 0.2.7.3.698 Ho spita .3.251127 084.8 l .8 2022-09-09 2022-09-09 Travel 1.2.840.1 1.2.653.679 9775 [id number] Methodi 00:00:00 00:00:[address] 3.430.2.7 0.2.7.3.698 Ho spita .3.177566 084.8 l .8 2022-09-05 2022-09-05 [facility] AdamsJosé Antonio wong 1.2.840.1 [id number] Methodi 23:59:00 23:59:[address] 3.430.2.7 Hospit a .3.922672 l .8 2022-09-05 2022-09-05 [facility] José Antonio Bunch 1.2.840.1 [id number] Methodi 23:59:00 23:59:[address] 3.430.2.7 Hospit a .3.524812 l .8 2022-09-05 2022-09-05 [facility] José Antonio Bunch 1.2.840.1 [id number] [id number] Methodi 12:15:00 12:20:[address] 3.430.2.7 Hospit a .3.726957 l .8 2022-09-05 2022-09-05 Lab José Antonio Bunch 1.2.840.1 [id number] [id number] Methodi 12:15:00 12:20:[address] 3.430.2.7 Hospit a .3.562361 l .8 2022-09-05 2022-09-05 Travel 1.2.840.1 1.2.969.236 2971 [id number] Methodi 00:00:00 00:00:[address] 3.430.2.7 0.2.7.3.698 Ho spita .3.645742 084.8 l .8 2022-09-05 2022-09-05 Travel 1.2.840.1 1.2.504.662 7223 [id number] Methodi 00:00:00 00:00:[address] 3.430.2.7 0.2.7.3.698 Ho spita .3.284923 084.8 l .8 2022-08-17 2022-08-17 Travel 1.2.840.1 1.2.597.173 9223 [id number] Methodi 00:00:00 00:00:[address] 3.430.2.7 0.2.7.3.698 Ho spita .3.190198 084.8 l .8 2022-08-17 2022-08-17 [facility] José Antonio Bunch 1.2.840.1 [id number] Methodi 00:00:00 00:00:[address] 3.430.2.7 Hospit a .3.946459 l .8 2022-08-17 2022-08-17 Travel 1.2.840.1 1.2.968.924 2044 [id number] Methodi 00:00:00 00:00:[address] 3.430.2.7 0.2.7.3.698 Ho spita .3.155650 084.8 l .8 2022-08-17 2022-08-17 [facility] José Antonio Bunch 1.2.840.1 [id number] Methodi 00:00:00 00:00:[address] 3.430.2.7 Hospit a .3.438225 l .8 2022-06-09 2022-06-11 Outside nullFlavo MNA [id number] Memoria 13:40:34 04:59:59 Medical r Neurology 00 l Records Kasi Mei 2022-06-09 2022-06-11 Outside nullFlavo MNA [id number] [facility]oria 13:40:34 04:59:59 Medical r Neurology 00 l Records Kasi Mei 2022-06-09 2022-06-10 [id number] 08:40:34 23:59:59 00 2021-12-14 2021-12-14 Ambulatory nullFlavo MNA [id number] Memoria 16:00:00 16:00:00 Pre-Reg r Neurology 03 l Kasi Mei 2021-12-14 2021-12-14 Ambulatory nullFlavo MNA [id number] [facility] 16:00:00 16:00:00 Pre-Reg r Neurology 03 l Kasi Mei 2021-12-14 2021-12-14 Outpatient MHIE SOLITAIRO [id number] [facility] 10:00:00 10:00:00 03 l Sigifredo 2021-12-14 2021-12-14 [facility] [id number] 10:00:00 10:00:00 Cabrera Stephan Kareem 2021-09-17 2021-09-17 [facility] José Antonio Bunch 1.2.840.1 [id number] Methodi 09:11:00 18:00:[address] 3.430.2.7 Hospit a .3.589834 l .8 2021-09-17 2021-09-17 Surgery José Antonio Bunch 1.2.840.1 [id number] [id number] Methodi 11:50:00 15:30:[address] 3.430.2.7 Hospit a .3.684484 l .8 2021-09-17 2021-09-17 Anesthesia Padilla, 1.2.840.1 [id number] Methodi 11:15:00 14:34:00 Event Arleen 48419.1.[address] [place] 3.430.2.7 Hospi ta .3.747472 l .8 2021-09-17 2021-09-17 Travel 1.2.840.1 1.2.677.886 2012 [id number] Methodi 00:00:00 00:00:[address] 3.430.2.7 0.2.7.3.698 Ho spita .3.044629 084.8 l .8 2021-09-15 2021-09-15 Lab Perez, 1.2.840.1 [id number] [id number] Methodi 09:50:00 09:55:00 Juan Ramon SanthoshLadan 91479.1.1 [address] 3.430.2.7 Hospit a .3.034064 l .8 2021-09-15 2021-09-15 Lab José Antonio Bunch 1.2.840.1 [id number] Methodi 09:45:00 09:50:[address] 3.430.2.7 Hospit a .3.939238 l .8 2021-09-15 2021-09-15 Travel 1.2.840.1 1.2.912.275 2178 [id number] Methodi 00:00:00 00:00:[address] 3.430.2.7 0.2.7.3.698 Ho spita .3.822195 084.8 l .8 2021-09-15 2021-09-15 [facility] José Antonio Bunch 1.2.840.1 [id number] 2 [id number] Methodi 00:00:00 00:00:[address] 3.430.2.7 Hospit a .3.667737 l .8 2021-08-14 2021-08-21 Inpatient POSMILAN, [facility] [id number] [place] 00:00:00 00:00:00 CHACORTA [address] 2021-07-27 2021-07-28 Outpatient JOSÉ ANTONIO BUNCH [facility] 060 [id number] [place] 00:00:00 00:00:[address] 2021-07-26 2021-07-26 Outpatient JOSÉ ANTONIO BUNCH [facility] [id number] [place] 00:00:00 00:00:[address] 2021-07-02 2021-07-02 Outpatient JOSÉ ANTONIO BUNCH [facility] 021 [id number] [place] 00:00:00 00:00:[address] 2020-12-15 2020-12-16 Outpatient nullFlavo MNA [id number] [facility] 16:00:00 05:59:59 r Neurology 02 l Darkericky Mei 2020-12-15 2020-12-16 Outpatient nullFlavo MNA [id number] [facility] 16:00:00 05:59:59 r Neurology 02 l Kasi Mei 2020-12-15 2020-12-15 Outpatient HENRY DysonSCHER MHMISCHER [id number] 10:00:00 23:59:59 Cabrera 02 Kareem 2020-12-15 2020-12-15 Ambulatory nullFlavo MNA [id number] [facility] 16:00:00 16:00:00 Pre-Reg r Neurology 01 l Kasi Mei 2020-12-15 2020-12-15 Ambulatory nullFlavo MNA [id number] [facility] 16:00:00 16:00:00 Pre-Reg r Neurology 01 l Kasi Mei 2020-12-15 2020-12-15 Outpatient MHIE MHIE [id number] [facility] 10:00:00 10:00:00 02 xenia Mei 2020-12-15 2020-12-15 Outpatient MHIE MHIE [id number] [facility] 10:00:00 10:00:00 01 xenia Mei 2020-12-15 2020-12-15 Outpatient HENRY DysonSCHCHILO MISCHER [id number] 10:00:00 10:00:00 Cabrera 01 Kareem 2019-12-10 2019-12-11 Outpatient nullFlavo MNA [id number] [facility] 22:00:00 05:59:59 r Neurology 00 l Kasi Rogersann 2019-12-10 2019-12-11 Outpatient nullFlavo MNA [id number] [facility] 22:00:00 05:59:59 r Neurology 00 l Darkericky Mei 2019-12-10 2019-12-[address] [facility] [id number] 16:00:00 23:59:59 Cabrera 00 Kareem 2019-12-10 2019-12-10 Outpatient SOLITARIO JEREZ [id number] [facility] 16:00:00 16:00:00 00 l [place] Results Test Description Test Time Test Comments Results Result Comments Source Activated clotting time 2022-09-12 13:09:00 Test Item Value Reference Range Interpretation Comme nts Activated clotting time (test See_Comment H Linotype Machinist Name: Heath Zaratestevendereje code = 5298) ID: [id number] [A utomated message] The system [employer] generated this result transmit keny reference range: 96 - 152 sec. The reference range was not used to interpret this result as normal/abnormal . Lab Interpretation (test code Abnormal = 56389-8) [facility] [id number] 13:09:00 Test Item Value Reference Range Interpretation Comments Activated clotting time See_Comment H Oper ator Name: Heath (test code = 5298) Danielle ce ID: [id number] [Autom ated message] The sy stem which generated this result transmit keny reference range : 96 - 152 sec. The reference range was not used to int erpret this result as normal/abnormal . Lab Interpretation (test Abnormal code = 89005-3) [facility] [id number] 13:09:00 Test Item Value Reference Range Interpretation Comments Activated clotting time See_Comment H Oper ator Name: Heath (test code = 5298) Danielle ce ID: [id number] [Autom ated message] The sy stem which generated this result transmit keny reference range : 96 - 152 sec. The reference range was not used to int erpret this result as normal/abnormal . Lab Interpretation (test Abnormal code = 00612-1) [facility] [id number] 13:09:00 Test Item Value Reference Range Interpretation Comments Activated clotting time See_Comment H Oper ator Name: Heath (test code = 5298) Danielle ce ID: [id number] [Autom ated message] The sy stem which generated this result transmit keny reference range : 96 - 152 sec. The reference range was not used to int erpret this result as normal/abnormal . Lab Interpretation (test Abnormal code = 93644-8) [facility] [id number] 13:09:00 Test Item Value Reference Range Interpretation Comments Activated clotting time See_Comment H Oper ator Name: Heath (test code = 5298) Danielle ce ID: [id number] [Autom ated message] The sy stem which generated this result transmit keny reference range : 96 - 152 sec. The reference range was not used to int erpret this result as normal/abnormal . Lab Interpretation (test Abnormal code = 29087-3) [facility] [facility] clot[facility] [id number] 13:09:00 Test Item Value Reference Range Interpretation Comments Activated clotting time See_Comment H Oper ator Name: Heath (test code = 5298) Danielle ce ID: [id number] [Autom ated message] The sy stem which generated this result transmit keny reference range : 96 - 152 sec. The reference range was not used to int erpret this result as normal/abnormal . Lab Interpretation (test Abnormal code = 78369-7) [address]2022-11-05 01:51:21 Test Item Value Reference Range Interpretation Comments Ventricular rate (test code = 253) Atrial rate (test code = 255) TN interval (test code = 266) QRSD interval (test code = 260) QT interval (test code = 264) QTC interval (test code = 265) P axis 1 (test code = 267) QRS axis 1 (test code = 268) T wave axis (test code = 270) EKG impression (test Sinus bradycardia with code = 273) sinus arrhythmia with 1st degree AV block-Left axis deviation-Abnormal ECG- [place] [address] [id number] 01:51:21 Test Item Value Reference Range Interpretation Comments Ventricular rate (test code = 253) Atrial rate (test code = 255) TN interval (test code = 266) QRSD interval (test code = 260) QT interval (test code = 264) QTC interval (test code = 265) P axis 1 (test code = 267) QRS axis 1 (test code = 268) T wave axis (test code = 270) EKG impression (test Sinus bradycardia with code = 273) sinus arrhythmia with 1st degree AV block-Left axis deviation-Abnormal ECG- [address]2022-11-05 01:51:21 Test Item Value Reference Range Interpretation Comments Ventricular rate (test code = 253) Atrial rate (test code = 255) TN interval (test code = 266) QRSD interval (test code = 260) QT interval (test code = 264) QTC interval (test code = 265) P axis 1 (test code = 267) QRS axis 1 (test code = 268) T wave axis (test code = 270) EKG impression (test Sinus bradycardia with code = 273) sinus arrhythmia with 1st degree AV block-Left axis deviation-Abnormal ECG- [address]2022-11-05 01:51:21 Test Item Value Reference Range Interpretation Comments Ventricular rate (test code = 253) Atrial rate (test code = 255) TN interval (test code = 266) QRSD interval (test code = 260) QT interval (test code = 264) QTC interval (test code = 265) P axis 1 (test code = 267) QRS axis 1 (test code = 268) T wave axis (test code = 270) EKG impression (test Sinus bradycardia with code = 273) sinus arrhythmia with 1st degree AV block-Left axis deviation-Abnormal ECG- [address]2022-11-05 01:51:21 Test Item Value Reference Range Interpretation Comments Ventricular rate (test code = 253) Atrial rate (test code = 255) TN interval (test code = 266) QRSD interval (test code = 260) QT interval (test code = 264) QTC interval (test code = 265) P axis 1 (test code = 267) QRS axis 1 (test code = 268) T wave axis (test code = 270) EKG impression (test Sinus bradycardia with code = 273) sinus arrhythmia with 1st degree AV block-Left axis deviation-Abnormal ECG- [facility] 12 [id number] 01:51:21 Test Item Value Reference Range Interpretation Comments Ventricular rate (test code = 253) Atrial rate (test code = 255) TN interval (test code = 266) QRSD interval (test code = 260) QT interval (test code = 264) QTC interval (test code = 265) P axis 1 (test code = 267) QRS axis 1 (test code = 268) T wave axis (test code = 270) EKG impression (test Sinus bradycardia with code = 273) sinus arrhythmia with 1st degree AV block-Left axis deviation-Abnormal ECG- [facility] Pre/Post [id number] 01:32:00 Test Item Value Reference Range Interpretation Comments Ventricular rate (test code = 253) Atrial rate (test code = 255) QRSD interval (test code = 260) QT interval (test code = 264) QTC interval (test code = 265) P axis 1 (test code = 267) QRS axis 1 (test code = 268) T wave axis (test code = 270) EKG impression (test Atrial flutter with code = 273) 4:1 AV conduction-Left axis deviation-Pulmonary disease pattern-Abnormal ECG-- [facility] Pre/Post [id number] 01:32:00 Test Item Value Reference Range Interpretation Comments Ventricular rate (test code = 253) Atrial rate (test code = 255) QRSD interval (test code = 260) QT interval (test code = 264) QTC interval (test code = 265) P axis 1 (test code = 267) QRS axis 1 (test code = 268) T wave axis (test code = 270) EKG impression (test Atrial flutter with code = 273) 4:1 AV conduction-Left axis deviation-Pulmonary disease pattern-Abnormal ECG-- [facility] Pre/Post [id number] 01:32:00 Test Item Value Reference Range Interpretation Comments Ventricular rate (test code = 253) Atrial rate (test code = 255) QRSD interval (test code = 260) QT interval (test code = 264) QTC interval (test code = 265) P axis 1 (test code = 267) QRS axis 1 (test code = 268) T wave axis (test code = 270) EKG impression (test Atrial flutter with code = 273) 4:1 AV conduction-Left axis deviation-Pulmonary disease pattern-Abnormal ECG-- [facility] Pre/Post [id number] 01:32:00 Test Item Value Reference Range Interpretation Comments Ventricular rate (test code = 253) Atrial rate (test code = 255) QRSD interval (test code = 260) QT interval (test code = 264) QTC interval (test code = 265) P axis 1 (test code = 267) QRS axis 1 (test code = 268) T wave axis (test code = 270) EKG impression (test Atrial flutter with code = 273) 4:1 AV conduction-Left axis deviation-Pulmonary disease pattern-Abnormal ECG-- [facility] Pre/Post [id number] 01:32:00 Test Item Value Reference Range Interpretation Comments Ventricular rate (test code = 253) Atrial rate (test code = 255) QRSD interval (test code = 260) QT interval (test code = 264) QTC interval (test code = 265) P axis 1 (test code = 267) QRS axis 1 (test code = 268) T wave axis (test code = 270) EKG impression (test Atrial flutter with code = 273) 4:1 AV conduction-Left axis deviation-Pulmonary disease pattern-Abnormal ECG-- [facility] Pre/Post [id number] 01:32:00 Test Item Value Reference Range Interpretation Comments Ventricular rate (test code = 253) Atrial rate (test code = 255) QRSD interval (test code = 260) QT interval (test code = 264) QTC interval (test code = 265) P axis 1 (test code = 267) QRS axis 1 (test code = 268) T wave axis (test code = 270) EKG impression (test Atrial flutter with code = 273) 4:1 AV conduction-Left axis deviation-Pulmonary disease pattern-Abnormal ECG-- [facility]2022-11-04 11:16:01 Test Item Value Reference Range Interpretation Comments POC sodium (test code = 137 mmol/L 299-190 7080-0) POC potassium (test 3.5 mmol/L 3.5-5.0 code = 6298-4) POC chloride (test code 101 mmol/L 99-109 = 2069-3) POC CO2 (test code = 27 mmol/L 24--8) POC glucose (test code 102 mg/dL 65-99 H = 2339-0) POC BUN (test code = 39 mg/dL 8-24 H 6299-2) POC creatinine (test 1.7 mg/dl 0.5-0.9 H code = 70428-2) POC hematocrit (test 37 % 37-47 code = 4544-3) POC anion gap (test 14 mmol/L 8-20 Linotype Machinist Name: code = [id number]) Navjot Saenz ID: [id number] Lab Interpretation Abnormal (test code = 97722-6) [facility]2022-11-04 11:16:01 Test Item Value Reference Range Interpretation Comments POC sodium (test code = 137 mmol/L 760-237 6698-0) POC potassium (test 3.5 mmol/L 3.5-5.0 code = 6298-4) POC chloride (test code 101 mmol/L 99-109 = 9-3) POC CO2 (test code = 27 mmol/L 24-31 53639-6) POC glucose (test code 102 mg/dL 65-99 H = 2339-0) POC BUN (test code = 39 mg/dL 8-24 H 6299-2) POC creatinine (test 1.7 mg/dl 0.5-0.9 H code = 24413-9) POC hematocrit (test 37 % 37-47 code = 4544-3) POC anion gap (test 14 mmol/L 8-20 Linotype Machinist Name: code = [id number]) Navjot Saenz ID: [id number] Lab Interpretation Abnormal (test code = 18409-1) [facility]2022-11-04 11:16:01 Test Item Value Reference Range Interpretation Comments POC sodium (test code = 137 mmol/L 791-650 9913-0) POC potassium (test 3.5 mmol/L 3.5-5.0 code = 6298-4) POC chloride (test code 101 mmol/L 99-109 = 2069-3) POC CO2 (test code = 27 mmol/L 24-31 82968-9) POC glucose (test code 102 mg/dL 65-99 H = 2339-0) POC BUN (test code = 39 mg/dL 8-24 H 6299-2) POC creatinine (test 1.7 mg/dl 0.5-0.9 H code = 83912-0) POC hematocrit (test 37 % 37-47 code = 4544-3) POC anion gap (test 14 mmol/L 8-20 Linotype Machinist Name: code = [id number]) Navjot Saenz ID: [id number] Lab Interpretation Abnormal (test code = 19558-1) [facility]2022-11-04 11:16:01 Test Item Value Reference Range Interpretation Comments POC sodium (test code = 137 mmol/L 238-515 1166-0) POC potassium (test 3.5 mmol/L 3.5-5.0 code = 6298-4) POC chloride (test code 101 mmol/L 99-109 = 2069-3) POC CO2 (test code = 27 mmol/L 24-31 58705-1) POC glucose (test code 102 mg/dL 65-99 H = 2339-0) POC BUN (test code = 39 mg/dL 8-24 H 6299-2) POC creatinine (test 1.7 mg/dl 0.5-0.9 H code = 62922-4) POC hematocrit (test 37 % 37-47 code = 4544-3) POC anion gap (test 14 mmol/L 8-20 Linotype Machinist Name: code = [id number]) Navjot Saenz ID: [id number] Lab Interpretation Abnormal (test code = 06682-2) [facility]2022-11-04 11:16:01 Test Item Value Reference Range Interpretation Comments POC sodium (test code = 137 mmol/L 895-878 2773-0) POC potassium (test 3.5 mmol/L 3.5-5.0 code = 6298-4) POC chloride (test code 101 mmol/L 99-109 = 2069-3) POC CO2 (test code = 27 mmol/L 24-31 19421-2) POC glucose (test code 102 mg/dL 65-99 H = 2339-0) POC BUN (test code = 39 mg/dL 8-24 H 6299-2) POC creatinine (test 1.7 mg/dl 0.5-0.9 H code = 90854-3) POC hematocrit (test 37 % 37-47 code = 4544-3) POC anion gap (test 14 mmol/L 8-20 Linotype Machinist Name: code = [id number]) Navjot Foxnehaice ID: [id number] Lab Interpretation Abnormal (test code = 18317-3) [facility]2022-11-04 11:16:01 Test Item Value Reference Range Interpretation Comments POC sodium (test code = 137 mmol/L 922-558 3606-0) POC potassium (test 3.5 mmol/L 3.5-5.0 code = 6298-4) POC chloride (test code 101 mmol/L 99-109 = 2069-3) POC CO2 (test code = 27 mmol/L 24-31 29607-7) POC glucose (test code 102 mg/dL 65-99 H = 2339-0) POC BUN (test code = 39 mg/dL 8-24 H 6299-2) POC creatinine (test 1.7 mg/dl 0.5-0.9 H code = 53514-0) POC hematocrit (test 37 % 37-47 code = 4544-3) POC anion gap (test 14 mmol/L 8-20 Linotype Machinist Name: code = [id number]) Navjot Foxnehaice ID: [id number] Lab Interpretation Abnormal (test code = 10661-0) [facility] [id number] 23:10:22 Test Item Value Reference Interpretation Comments Range Interpretation Negative results do (test code = not preclude COVID-19 0506205) infection and should not be used asthe sole basis for treatment or other patient management decisions. Negativeresults must be combined with clinical observations, patient history, andepidemiological information. COVID-19 Not-Detected Not-Detected DISCLAIMER:This qualitative RT-PCR test was result (test code performed using = 79041-3) the Roddyty m SARS-CoV-2 Assa y (Tethis). This assay is available for i n vitro diagnosti c use under Food and Drug Administration (FDA) Emergency Use Authorizati on (EUA) and has been verified f or clinical use by the [facility]. Information on the FDA policy for diagnostic tests for coronavirus disease- 2019 i s available at:https://www. fd a.gov/medical-d ev ices/emergency- si tuations-medica l- devices/faqs-di ag nostic-testing- sa rs-cov-2It is critical that health care providers and patients review the applicable fact sheet(s) i n interpreting or understanding t he test results th at are available upon request.METHODO LO GY:This assay utilizes Moduslyen ts for nucleic aci d extraction, amplification, and real-time reverse card lacer jacquard polymerase hunter n reaction. COVID-19 See link below for PDF Case Number: qualitative RT-PCR Lab Report [id number] (test code = 7070) [facility] [id number] 23:10:22 Test Item Value Reference Interpretation Comments Range Interpretation Negative results do (test code = not preclude COVID-19 5808737) infection and should not be used asthe sole basis for treatment or other patient management decisions. Negativeresults must be combined with clinical observations, patient history, andepidemiological information. COVID-19 Not-Detected Not-Detected DISCLAIMER:This qualitative RT-PCR test was result (test code performed using = 19327-1) the Roddyty m SARS-CoV-2 Assa y (Tethis). This assay is available for i n vitro diagnosti c use under Food and Drug Administration (FDA) Emergency Use Authorizati on (EUA) and has been verified f or clinical use by the [facility]. Information on the FDA policy for diagnostic tests for coronavirus disease- 2019 i s available at:https://www. fd a.gov/medical-d ev ices/emergency- si tuations-medica l- devices/faqs-di ag nostic-testing- sa rs-cov-2It is critical that health care providers and patients review the applicable fact sheet(s) i n interpreting or understanding t he test results th at are available upon request.METHODO LO GY:This assay utilizes reagen ts for nucleic aci d extraction, amplification, and real-time reverse card lacer jacquard polymerase hunter n reaction. COVID-19 See link below for PDF Case Number: qualitative RT-PCR Lab Report [id number] 590 (test code = 7070) [place] [address] qualitative [id number] 23:10:22 Test Item Value Reference Interpretation Comments Range Interpretation Negative results do (test code = not preclude COVID-19 0184236) infection and should not be used asthe sole basis for treatment or other patient management decisions. Negativeresults must be combined with clinical observations, patient history, andepidemiological information. COVID-19 Not-Detected Not-Detected DISCLAIMER:This qualitative RT-PCR test was result (test code performed using = 86492-1) the Alinity m SARS-CoV-2 Assa y (Tethis). This assay is available for i n vitro diagnosti c use under Food and Drug Administration (FDA) Emergency Use Authorizati on (EUA) and has been verified f or clinical use by the [facility]. Information on the FDA policy for diagnostic tests for coronavirus disease- 2019 i s available at:https://www. fd a.gov/medical-d ev ices/emergency- si tuations-medica l- devices/faqs-di ag nostic-testing- sa rs-cov-2It is critical that health care providers and patients review the applicable fact sheet(s) i n interpreting or understanding t he test results th at are available upon request.METHODO LO GY:This assay utilizes reagen ts for nucleic aci d extraction, amplification, and real-time reverse card lacer jacquard polymerase hunter n reaction. COVID-19 See link below for PDF Case Number: qualitative RT-PCR Lab Report [id number] 590 (test code = 7070) [facility] [id number] 23:10:22 Test Item Value Reference Interpretation Comments Range Interpretation Negative results do (test code = not preclude COVID-19 3500676) infection and should not be used asthe sole basis for treatment or other patient management decisions. Negativeresults must be combined with clinical observations, patient history, andepidemiological information. COVID-19 Not-Detected Not-Detected DISCLAIMER:This qualitative RT-PCR test was result (test code performed using = 98135-6) the Alinity m SARS-CoV-2 Assa y (Tethis). This assay is available for i n vitro diagnosti c use under Food and Drug Administration (FDA) Emergency Use Authorizati on (EUA) and has been verified f or clinical use by the [facility]. Information on the FDA policy for diagnostic tests for coronavirus disease- 2019 i s available at:https://www. fd a.gov/medical-d ev ices/emergency- si tuations-medica l- devices/faqs-di ag nostic-testing- sa rs-cov-2It is critical that health care providers and patients review the applicable fact sheet(s) i n interpreting or understanding t he test results th at are available upon request.METHODO VINCENZO GY:This assay utilizes reagen ts for nucleic aci d extraction, amplification, and real-time reverse card lacer jacquard polymerase hunter n reaction. COVID-19 See link below for PDF Case Number: qualitative RT-PCR Lab Report [id number] 590 (test code = 7070) [facility] [id number] 23:10:22 Test Item Value Reference Interpretation Comments Range Interpretation Negative results do (test code = not preclude COVID-19 6310104) infection and should not be used asthe sole basis for treatment or other patient management decisions. Negativeresults must be combined with clinical observations, patient history, andepidemiological information. COVID-19 Not-Detected Not-Detected DISCLAIMER:This qualitative RT-PCR test was result (test code performed using = 32933-7) the Alinity m SARS-CoV-2 Assa y (Tethis). This assay is available for i n vitro diagnosti c use under Food and Drug Administration (FDA) Emergency Use Authorizati on (EUA) and has been verified f or clinical use by the [facility]. Information on the FDA policy for diagnostic tests for coronavirus disease- 2019 i s available at:https://www. fd a.gov/medical-d ev ices/emergency- si tuations-medica l- devices/faqs-di ag nostic-testing- sa rs-cov-2It is critical that health care providers and patients review the applicable fact sheet(s) i n interpreting or understanding t he test results th at are available upon request.METHODO LO GY:This assay utilizes reagen ts for nucleic aci d extraction, amplification, and real-time reverse card lacer jacquard polymerase hunter n reaction. COVID-19 See link below for PDF Case Number: qualitative RT-PCR Lab Report [id number] 590 (test code = 7070) [facility] [id number] 23:10:22 Test Item Value Reference Interpretation Comments Range Interpretation Negative results do (test code = not preclude COVID-19 9892406) infection and should not be used asthe sole basis for treatment or other patient management decisions. Negativeresults must be combined with clinical observations, patient history, andepidemiological information. COVID-19 Not-Detected Not-Detected DISCLAIMER:This qualitative RT-PCR test was result (test code performed using = 69962-3) the Alinity m SARS-CoV-2 Assa y (Tethis). This assay is available for i n vitro diagnosti c use under Food and Drug Administration (FDA) Emergency Use Authorizati on (EUA) and has been verified f or clinical use by the [facility]. Information on the FDA policy for diagnostic tests for coronavirus disease- 2019 i s available at:https://www. fd a.gov/medical-d ev ices/emergency- si tuations-medica l- devices/faqs-di ag nostic-testing- sa rs-cov-2It is critical that health care providers and patients review the applicable fact sheet(s) i n interpreting or understanding t he test results th at are available upon request.METHODO LO GY:This assay utilizes reagen ts for nucleic aci d extraction, amplification, and real-time reverse card lacer jacquard polymerase hunter n reaction. COVID-19 See link below for PDF Case Number: qualitative RT-PCR Lab Report [id number] 590 (test code = 7070) [facility] [id number] 23:10:22 Test Item Value Reference Interpretation Comments Range Interpretation Negative results do (test code = not preclude COVID-19 5764952) infection and should not be used asthe sole basis for treatment or other patient management decisions. Negativeresults must be combined with clinical observations, patient history, andepidemiological information. COVID-19 Not-Detected Not-Detected DISCLAIMER:This qualitative RT-PCR test was result (test code performed using = 73603-0) the Alinity m SARS-CoV-2 Assa y (Tethis). This assay is available for i n vitro diagnosti c use under Food and Drug Administration (FDA) Emergency Use Authorizati on (EUA) and has been verified f or clinical use by the [facility]. Information on the FDA policy for diagnostic tests for coronavirus disease- 2019 i s available at:https://www. fd a.gov/medical-d ev ices/emergency- si tuations-medica l- devices/faqs-di ag nostic-testing- sa rs-cov-2It is critical that health care providers and patients review the applicable fact sheet(s) i n interpreting or understanding t he test results th at are available upon request.METHODO LO GY:This assay utilizes reagen ts for nucleic aci d extraction, amplification, and real-time reverse card lacer jacquard polymerase hunter n reaction. COVID-19 See link below for PDF Case Number: qualitative RT-PCR Lab Report [id number] 590 (test code = 7070) [facility] [Presence] in Respiratory specimen by RASHID with probe [id number] 18:10:22 Test Item Value Reference Range Interpretation Comments SARS-CoV-2 (COVID-19) RNA Not detected [Presence] in Respiratory specimen by RASHID with probe detection (test code = 37078-1) Whether patient is employed in a Unknown healthcare setting (test code = 11443-7) Whether the patient has symptoms Unknown related to condition of interest (test code = 03638-6) Whether the patient was Unknown hospitalized for condition of interest (test code = 75870-4) Whether the patient was admitted Unknown to intensive care unit (ICU) for condition of interest (test code = 68756-3) Whether patient resides in a Unknown congregate care setting (test code = 62145-8) status (test code = Unknown 64716-5) Date and time of symptom onset Unknown (test code = 50679-7) [facility]Act[facility] clotting [id number] 12:27:11 Test Item Value Reference Range Interpretation Comments Activated clotting time See_Comment H Oper ator Name: (test code = 5298) Padilla Mukesh ID: [id number] [Autom ated message] The sy stem which generated this result transmit keny reference range : 96 - 152 sec. The re ference range was not u sed to interpret this result as normal/abnor mal. Lab Interpretation Abnormal (test code = 38575-3) [facility] [id number] 00:29:34 Test Item Value Reference Range Interpretation Comments Ventricular rate (test code = 253) Atrial rate (test code = 255) TN interval (test code = 266) QRSD interval [...] for Anterior infarct are no longer present- [facility] [id number] 20:51:15 Test Item Value Reference Range Interpretation Comments POC glucose (test code = 107 mg/dL 65-99 H Ope rator Name: [id number]) Larry Armendariz ID: [id number] able : [facility] Notified darklight inspector Interpretation (test Abnormal code = 64914-3) [facility], [id number] 19:38:09 Test Item Value Reference Range Interpretation Comments pH, arterial (test code 7.35-7.45 = 2744-1) pCO2, arterial (test See_Comment [Autom ated message] code = 2019-8) The system ich generated this result transmitted ref erence range: 35 - 45 mmHg. The reference r nain was not used to interpret this result as normal/abnor mal. pO2, arterial (test code See_Comment H [A utomated message] = 2703-7) The system ic h generated this result transmitted ref erence range: 80 - 90 mmHg. The reference r nain was not used to interpret this result as normal/abnor mal. Temperature, Celsius Degrees C (test code = 8310-5) O2 saturation, arterial 98 % 95-100 (test code = 2708-6) pH, arterial corrected (test code = 21888-3) pCO2, arterial corrected mmHg (test code = 27470-4) pO2, arterial corrected mmHg (test code = 52917-8) Base excess, arterial See_Comment [Auto mated message] (test code = 1925-7) The s tem which generated this result transmitted ref erence range: -2 - 2 m Eq/L. The reference r nain was not used to interpret this result as normal/abnor mal. Lab Interpretation (test Abnormal code = 95954-3) [facility], [id number] 19:38:09 Test Item Value Reference Range Interpretation Comments Glucose, syringe (test code = 93 mg/dL 65-99 2345-7) [facility], [id number] 19:38:09 Test Item Value Reference Range Interpretation Comments Hemoglobin, syringe (test code = 11.0 g/dL 12.0-16.0 L 718-7) Lab Interpretation (test code = Abnormal 54285-2) [facility] HospitalIonized calcium, [id number] 19:38:09 Test Item Value Reference Range Interpretation Comments Ionized calcium, arterial (test 0.92 mmol/L 1.11-1.32 L code = 13726-6) Lab Interpretation (test code = Abnormal 03788-1) [facility]Potassium, [id number] 19:38:09 Test Item Value Reference Range Interpretation Comments Potassium, syringe (test See_Comment L [A utomated message] code = 2007) The system whic h generated this result transmitted ref erence range: 3.5 - 5. 0 mEq/L. The refe rence range was not u sed to interpret this result as normal/abnor mal. Lab Interpretation (test Abnormal code = 88702-0) [facility], [id number] 19:38:09 Test Item Value Reference Range Interpretation Comments Sodium, syringe (test See_Comment [Auto mated message] The code = 2947-0) system which generated this result tra nsmitted reference range : 135 - 148 mEq/L. The refe rence range was not used to interpret this result as normal/abnormal . [facility] HospitalType and [id number] 17:08:00 Test Item Value Reference Range Interpretation Comments ABO grouping (test code = 883-9) A Rh type (test code = 02398-6) POS Antibody screen (gel) (test code = NEG 890-4) [facility] Pre/Post [id number] 16:38:05 Test Item Value Reference Range Interpretation Comments Ventricular rate (test code = 253) Atrial rate (test code = 255) TN interval (test code = 266) QRSD interval (test code = 260) QT interval (test code = 264) QTC interval (test code = 265) P axis 1 (test code = 267) QRS axis 1 (test code = 268) T wave axis (test code = 270) EKG impression (test code Atrial = 273) Fibrillation-Left axis deviation-Anterior infarct (cited on or before 21-AUG-2021)-Abnorma l ECG- [facility] CenterUrinalysis screen and microscopy, with reflex to culture 2021-09-15 18:10:49 Test Item Value Reference Range Interpretation Comments Specimen site (test Clean catch code = 4090467) Color, UA (test code Straw = 5778-6) Appearance, UA (test Hazy code = 5767-9) Specific gravity, UA 1.001-1.035 (test code = 5811-5) pH, UA (test code = 5.0-8.5 5803-2) Protein, UA (test Negative Negative code = 49596-1) Glucose, UA (test Negative Negative code = 41678-3) Ketones, UA (test Negative Negative code = 2514-8) Bilirubin, UA (test Negative Negative code = 5770-3) Blood, UA (test code Negative Negative = 5794-3) Nitrite, UA (test Negative Negative code = 5802-4) Urobilinogen, UA <2.0 See_Comment [Automated message] (test code = 59225-4) The sy stem which generated this result [...] See_Comment [Autom ated message] 5821-4) The system [employer] generated this result transmitted ref erence range: 0 - 4 /H PF. The reference r nain was not used to interpret this result as normal/abnor mal. RBC, UA (test code = None seen See_Comment [Autom ated message] 65641-4) The system [employer] generated this result transmitted ref erence range: 0 - 5 /H PF. The reference r nain was not used to interpret this result as normal/abnor mal. Bacteria, UA (test Few None seen code = 43534-4) Yeast, UA (test code None seen = 16612-2) Yeast with None seen pseudohyphae, UA (test code = 58744-5) Hyaline casts, UA See_Comment [Automate d message] (test code = 5796-8) The sys tem which generated this result transmitted ref erence range: /LPF. Th e reference range was not used to int erpret this result as normal/abnormal . [facility]Creatinine level, urine, [id number] 18:04:20 Test Item Value Reference Range Interpretation Comments Creatinine, urine (mg/dL) (test code 24 mg/dL = 19556-7) [facility] CenterProtein, urine, [id number] 18:04:20Protein, urine random<4mg/dL09/15/2021 12:04 PM [facility] [id number] 17:28:54 Test Item Value Reference Range Interpretation Comments Urine culture (test SEE COMMENT Bacteriu fabby screen code = 5602353) negative. [facility] (COVID-19) RNA [Presence] in Respiratory specimen by RASHID with probe [id number] 15:36:10 Test Item Value Reference Range Interpretation Comments SARS-CoV-2 (COVID-19) RNA Not detected Not-Detected [Presence] in Respiratory specimen by RASHID with probe detection (test code = 93795-4) Whether patient is employed in a healthcare setting (test code = 68104-8) Whether the patient has symptoms related to condition of interest (test code = 06901-8) Patient was hospitalized because of this condition (test code = 62615-4) Whether the patient was admitted to intensive care unit (ICU) for condition of interest (test code = 56740-8) Whether patient resides in a congregate care setting (test code = 90976-7) NIKHIL OCASIO OIVYIUSD-OhV-7 (COVID-19) RNA [Presence] in Respiratory specimen by RASHID with probe [id number] 00:43:55 Test Item Value Reference Range Interpretation Comments SARS-CoV-2 (COVID-19) RNA Not detected Not-Detected [Presence] in Respiratory specimen by RASHID with probe detection (test code = 98970-0) Whether patient is employed in a healthcare setting (test code = 05719-3) Whether the patient has symptoms related to condition of interest (test code = 69058-5) Patient was hospitalized because of this condition (test code = 13584-5) Whether the patient was admitted to intensive care unit (ICU) for condition of interest (test code = 30185-0) Whether patient resides in a congregate care setting (test code = 12805-9) NIKHIL HOWARDSARS-CoV-2 (COVID-19) RNA [Presence] in Respiratory specimen by RASHID with probe [id number] 21:43:32 Test Item Value Reference Range Interpretation Comments SARS-CoV-2 (COVID-19) RNA Not detected Not-Detected [Presence] in Respiratory specimen by RASHID with probe detection (test code = 29968-6) Whether patient is employed in a healthcare setting (test code = 35562-0) Whether the patient has symptoms related to condition of interest (test code = 75765-8) Patient was hospitalized because of this condition (test code = 86512-3) Whether the patient was admitted to intensive care unit (ICU) for condition of interest (test code = 10753-3) Whether patient resides in a congregate care setting (test code = 99234-5) NIKHIL HOWARD
[2022-11-29 12:59] LABS: Absolute Lymphocytes (CBC) 1.1 K/uL (0.7-4.9); Hematocrit 45.1 % (36.0-45.0); Lymphocytes % 12.6 % (15.3-44.8); MCV 77.3 fL (80-100); MPV 7.1 fL (7.6-11.3); RBC Red Blood Cell Count 5.84 M/uL (3.86-4.86)
[2022-11-29 13:16] LABS: Bilirubin Total 0.5 mg/dL (0.2-1.0); Protein, Total 7.8 g/dL (6.4-8.2)
[2022-11-29 13:17] LABS: Potassium 2.1 mmol/L (3.5-5.1)
--- NOTE | 2022-11-29 13:52 | RAD REPORT ---
EXAM DESCRIPTION: CT - Abdomen Pelvis Wo Contrast - 11/29/2022 1:27 pm CLINICAL HISTORY: Abdominal pain COMPARISON: None TECHNIQUE: Computed axial tomography of the abdomen and pelvis was obtained. IV and oral contrast we re not requested. All CT scans are performed using dose optimization technique as appropriate and may include automated exposure control or mA/KV adjustment according to patient size. FINDINGS: The evaluation of solid organs, vessels and bowel is limited secondary to the lack of con trast administration. Multiple gallstones. Gallbladder wall not thickened The liver, spleen, pancreas, adrenals and kidneys appear grossly normal. Small duodenal diverticulum Hysterectomy. No adnexal mass There is no evidence of diverticulitis. No obstruction. Spondylosis lumbar spine resulting spinal stenosis IMPRESSION: Cholelithiasis without evidence cholecystitis
--- NOTE | 2022-11-29 14:41 | EDPHYS ---
Physician Documentation [facility] Name: Jose Maria Tavarez Age: 77 yrs Sex: Female : 1945 Arrival Date: 11/29/2022 Time: 11:57 Bed 25 Private MD: Lincoln Wise ED Physician Mikey Kelly HPI: 11/29 17:03 This 77 yrs old Female presents to ER via Ambulatory with complaints of Sent By macario Wise, Constipation. 17:03 The patient presents with abdominal pain that is diffuse. Onset: The symptoms/episode kb began/occurred 2 week(s) ago. The symptoms do not radiate. Associated signs and symptoms: Pertinent positives: constipation, diarrhea. The symptoms are described as constant. Modifying factors: The symptoms are alleviated by nothing, the symptoms are aggravated by nothing. Severity of pain: At its worst the pain was mild in the emergency department the pain is unchanged. The patient has not experienced similar symptoms in the past. The patient has been recently seen by a physician: the patient's primary care provider, earlier today, with similar presenting complaints, and was sent to the [facility] Emergency Department for further evaluation. Pt reports alternating diarrhea and constipation with discomfort to diffuse abd for [address] Wise today and was sent to ER to rule out obstruction. Historical: - Allergies: 12:24 No Known Allergies; jl7 - Home Meds: 12:24 Allopurinol Oral [Active]; jl7 - PMHx: 12:24 a flutter; Congestive heart failure; Hypertensive disorder; thyroid; Gout; jl7 Hypothyroidism; - PSHx: 12:24 A flutter SX-ablation; Total abdominal hysterectomy; jl7 - Immunization history:: Client reports receiving the 2nd dose of the Covid vaccine. - Social history:: Smoking status: Patient denies any tobacco usage or history of. ROS: 17:02 Constitutional: Negative for fever, chills, and weight loss. kb 17:02 Abdomen/GI: Positive for abdominal pain, diarrhea, constipation. 17:02 All other systems are negative. Exam: 17:02 Constitutional: This is a well developed, well nourished patient who is awake, alert, kb and in no acute distress. Head/Face: Normocephalic, atraumatic. ENT: Moist Mucous membranes Cardiovascular: Regular rate and rhythm with a normal S1 and S2. No gallops, murmurs, or rubs. No pulse deficits. Respiratory: Respirations even and unlabored. No increased work of breathing. Talking in full sentences Skin: Warm, dry with normal turgor. Normal color. MS/ Extremity: Pulses equal, no cyanosis. Neurovascular intact. Full, normal range of motion. Neuro: Awake and alert, GCS 15, oriented to person, place, time, and situation. Moves all extremities. Normal gait. Psych: Awake, alert, with orientation to person, place and time. Behavior, mood, and affect are within normal limits. 17:02 Abdomen/GI: Inspection: abdomen appears normal, Bowel sounds: normal, Palpation: soft, in all quadrants, mild abdominal tenderness, in all quadrants. Vital Signs: 12:23 BP 124 / 57; Pulse 54; Resp 18; Temp 98; Pulse Ox 96% ; Weight 104.78 kg; Height 5 ft. jl7 4 in. (162.56 cm); Pain 3/10; 15:15 BP 125 / 69; Pulse 49; Resp 14; Pulse Ox 95% on R/A; db 16:00 BP 135 / 67; Pulse 78; Resp 18; Pulse Ox 94% on R/A; db 12:23 Body Mass Index 39.65 (104.78 kg, 162.56 cm) jl7 MDM: 12:14 Patient medically screened. kb 17:01 Data reviewed: vital signs, nurses notes. kb 17:01 Differential diagnosis: bowel obstruction, diverticulitis, gastritis, non-specific abd kb pain. Consideration of Admission/Observation Patient was admitted/placed on observation. Management of patient was discussed with the following: Hospitalist: [facility] accepts pt for admission under Dr Hewitt. Primary Care Provider: Dr Wise consulted, wants pt admitted to hospitalist . Historians other than the Patient: Daughter/Son: daughter. Counseling: I had a detailed discussion with the patient and/or guardian regarding: the historical points, exam findings, and any diagnostic results supporting the discharge/admit diagnosis, lab results, radiology results, the need for further work-up and treatment in the hospital. 11/29 12:13 Order name: CBC with Diff; Complete Time: 13:09 kb 11/29 12:13 Order name: CMP; Complete Time: 13:20 kb 11/29 12:13 Order name: Lipase; Complete Time: 13:20 kb 11/29 15:20 Order name: SARS RAPID; Complete Time: 16:41 kb 11/29 17:15 Order name: Creatine Phosphokinase; Complete Time: 17:22 EDMS 11/29 17:19 Order name: Urine Dipstick-Ancillary; Complete Time: 17:22 EDMS 11/29 17:25 Order name: Phosphorus; Complete Time: 18:10 EDMS 11/29 17:25 Order name: NT PRO-BNP; Complete Time: 18:10 EDMS 11/29 17:25 Order name: T4 Free; Complete Time: 18:10 EDMS 11/29 17:25 Order name: Magnesium; Complete Time: 18:10 EDMS 11/29 17:25 Order name: Thyroid Stimulating Hormone; Complete Time: 18:10 EDMS 11/29 17:38 Order name: Sodium Level; Complete Time: 18:10 EDMS 11/29 17:40 Order name: UR POTASSIUM; Complete Time: 18:10 EDMS 11/29 18:18 Order name: Basic Metabolic Panel; Complete Time: 18:18 EDMS 11/29 13:27 Order name: Abdomen ; Complete Time: 13:52 EDMS 11/29 18:25 Order name: UR SODIUM; Complete Time: 18:27 EDMS 11/29 19:03 Order name: Urinalysis; Complete Time: 23:01 EDMS 11/29 19:35 Order name: Osmolality, Serum; Complete Time: 23:01 EDMS 11/29 19:36 Order name: Osmolality, Urine; Complete Time: 23:01 EDMS 11/29 22:26 Order name: Basic Metabolic Panel; Complete Time: 23:01 EDMS 11/30 02:33 Order name: Basic Metabolic Panel; Complete Time: 04:12 EDMS 11/30 04:52 Order name: CBC with Automated Diff EDMS 11/30 05:11 Order name: Basic Metabolic Panel EDMS 11/30 05:11 Order name: Lipid Profile EDMS 11/30 14:42 Order name: Basic Metabolic Panel EDMS 12/01 04:09 Order name: CBC with Automated Diff EDMS 12/01 04:28 Order name: Basic Metabolic Panel EDMS 12/01 11:09 Order name: Uric Acid EDMS 12/01 14:16 Order name: Potassium EDMS 11/29 12:13 Order name: IV Saline Lock; Complete Time: 12:42 kb 11/29 12:13 Order name: Labs collected and sent; Complete Time: 12:42 kb 11/29 13:27 Order name: EKG; Complete Time: 13:28 kb 11/29 13:27 Order name: EKG - Nurse/Tech; Complete Time: 15:38 kb Administered Medications: 15:20 Drug: Potassium Chloride 40 mEq Route: PO; db 17:34 Follow up: Response: No adverse reaction db 15:20 Drug: NS 0.9% 1000 ml Route: IV; Rate: 1000 ml; Site: right hand; db 17:35 Follow up: Response: No adverse reaction; IV Status: Completed infusion; IV Intake: db 1000ml 15:20 Drug: Potassium Chloride 20 mEq Route: IV; Rate: calculated rate; Site: right hand; db 17:35 Follow up: Response: No adverse reaction; IV Status: Completed infusion; IV Intake: db 100ml Disposition Summary: 11/29/22 14:40 Hospitalization Ordered Hospitalization Status: Observation kb Provider: Donald Hewitt Condition: Stable kb Problem: new kb Symptoms: are unchanged kb Bed/Room Type: Standard kb Location: [facility] ER HOLD(11/29/22 23:20) cg Room Assignment: ERHOLD-(11/29/22 23:20) cg Diagnosis - Hypokalemia kb - Hyponatremia kb Forms: - Medication Reconciliation Form kb - SBAR form kb Addendum: 12/03/2022 03:48 Co-signature as Attending Physician, Mikey Kelly DO I was immediately available on-site m s3 in the Emergency Department for consultation in the care of the patient. Signatures: Dispatcher [employer] EDEbony Vitale, EDGER HAND-C HORACIO-Tammie Gusman, RN RN Morenita Aldana RN RN jl7 Mikey Kelly DO DO ms3 Pao Frank, RN RN db Kailee Pack PA-C PAFernando sb4 Corrections: (The following items were deleted from the chart) 11/29 13:27 12:18 Abdomen Pelvis W Con+CT.RAD.BRZ ordered. EDTX EDTX 23:20 14:40 Telemetry/MedSurg (observation) kb cg 23:20 14:40 kb cg
--- NOTE | 2022-11-29 14:41 | ER ---
Nurse's Notes [facility] Name: Jose Maria Tavarez Age: 77 yrs Sex: Female : 1945 Arrival Date: 11/29/2022 Time: 11:57 Bed 25 Private MD: Lincoln Wise Diagnosis: Hypokalemia;Hyponatremia Presentation: 11/29 12:23 Chief complaint: Patient states: Constipation, diarrhea x 2 weeks, + N/V and lower jl7 abdominal discomfort. Coronavirus screen: Vaccine status: Patient reports receiving the 2nd dose of the covid vaccine. At this time, the client does not indicate any symptoms associated with coronavirus-19. Ebola Screen: No symptoms or risks identified at this time. Initial Sepsis Screen: Does the patient meet any 2 criteria? No. Patient's initial sepsis screen is negative. Does the patient have a suspected source of infection? No. Patient's initial sepsis screen is negative. Risk Assessment: Do you want to hurt yourself or someone else? Patient reports no desire to harm self or others. Onset of symptoms was November 15, 2022. 12:23 Method Of Arrival: Ambulatory 7 12:23 Acuity: LUDIVINA 3 jl7 Triage Assessment: 12:24 General: Appears in no apparent distress. uncomfortable, Behavior is calm, cooperative, jl7 appropriate for age. Pain: Complains of pain in abdomen Pain currently is 3 out of 10 on a pain scale. GI: Reports constipation, diarrhea, nausea, vomiting. Historical: - Allergies: 12:24 No Known Allergies; jl7 - Home Meds: 12:24 Allopurinol Oral [Active]; jl7 - PMHx: 12:24 a flutter; Congestive heart failure; Hypertensive disorder; thyroid; Gout; jl7 Hypothyroidism; - PSHx: 12:24 A flutter SX-ablation; Total abdominal hysterectomy; jl7 - Immunization history:: Client reports receiving the 2nd dose of the Covid vaccine. - Social history:: Smoking status: Patient denies any tobacco usage or history of. Screenin:30 [facility] ED Fall Risk Assessment (Adult) History of falling in the last 3 months, db including since admission No falls in past 3 months (0 pts) Confusion or Disorientation No (0 pts) Intoxicated or Sedated No (0 pts) Impaired Gait Yes (1 pt) Mobility Assist Device Used Yes (1 pt) Altered Elimination No (0 pt) Score/Fall Risk Level 0 - 2 = Low Risk Oriented to surroundings, Maintained a safe environment. Abuse screen: Denies threats or abuse. Denies injuries from another. Nutritional screening: No deficits noted. Tuberculosis screening: No symptoms or risk factors identified. Assessment: 14:40 Reassessment: Patient appears in no apparent distress at this time. Patient brought to room via wheelchair at this time. Hospitalist at patient bedside. Family with patient. General: Appears in no apparent distress. Behavior is calm, cooperative. 15:31 Reassessment: Patient appears in no apparent distress at this time. Patient and/or db family updated on plan of care and expected duration. Pain level reassessed. Patient is alert, oriented x 3, equal unlabored respirations, skin warm/dry/pink. patient states came to the ER for constipation. GI: Abd is soft Abd is non tender Reports constipation. 16:43 Reassessment: lab is at patient bedside. 16:44 Reassessment: Patient appears in no apparent distress at this time. No changes from previously documented assessment. Patient and/or family updated on plan of care and expected duration. Pain level reassessed. Patient is alert, oriented x 3, equal unlabored respirations, skin warm/dry/pink. 17:00 Reassessment: See [facility] for continued admission charting. GI: Bowel sounds present X db 4 quads. Vital Signs: 12:23 BP 124 / 57; Pulse 54; Resp 18; Temp 98; Pulse Ox 96% ; Weight 104.78 kg; Height 5 ft. jl7 4 in. (162.56 cm); Pain 3/10; 15:15 BP 125 / 69; Pulse 49; Resp 14; Pulse Ox 95% on R/A; db 16:00 BP 135 / 67; Pulse 78; Resp 18; Pulse Ox 94% on R/A; db 12:23 Body Mass Index 39.65 (104.78 kg, 162.56 cm) jl7 Vitals: 15:15 Cardiac Rhythm Assessment. ED Course: 11:57 Patient arrived in ED. rg4 11:58 Lincoln Wise MD is Private Physician. rg4 12:04 Ebony Gallardo FNP-C [facility] kb 12:04 Mikey Kelly DO is Attending Physician. kb 12:24 Triage completed. jl7 12:24 Arm band placed on right wrist. jl7 13:27 Abdomen In Process Unspecified. EDMS 14:40 Pao Frank, RN is Primary Nurse. db 14:40 Donald Hewitt is Hospitalizing Provider. kb 15:10 Inserted saline lock: 22 gauge in right hand, using aseptic technique. ,using aseptic db technique. placed prior to my care Blood collected. 15:29 Patient has correct armband on for positive identification. Placed in gown. Bed in low db position. Call light in reach. Side rails up X 1. Client placed on continuous cardiac and pulse oximetry monitoring. NIBP monitoring applied. Warm blanket given. 19:20 No provider procedures requiring assistance completed. Patient admitted, IV remains in db place. 11/30 06:55 Primary Nurse role handed off by Pao Frank, RN mw2 12/01 07:06 Jacob Whitehead, ALBERTO is Primary Nurse. bp Administered Medications: 11/29 15:20 Drug: Potassium Chloride 40 mEq Route: PO; db 17:34 Follow up: Response: No adverse reaction db 15:20 Drug: NS 0.9% 1000 ml Route: IV; Rate: 1000 ml; Site: right hand; db 17:35 Follow up: Response: No adverse reaction; IV Status: Completed infusion; IV Intake: db 1000ml 15:20 Drug: Potassium Chloride 20 mEq Route: IV; Rate: calculated rate; Site: right hand; db 17:35 Follow up: Response: No adverse reaction; IV Status: Completed infusion; IV Intake: db 100ml Medication: 19:20 VIS not applicable for this client. db Intake: 17:35 IV: 100ml; Total: 100ml. db 17:35 IV: 1000ml; Total: 1100ml. db Outcome: 14:40 Decision to Hospitalize by Provider. kb 19:20 Admitted to Tele db 19:20 Condition: stable 19:20 Instructed on the need for admit. 12/01 14:51 Patient left the ED. bp Signatures: Dispatcher [employer] EDMS Ebony Gallardo, LORENZOC HELIUM ARC WELDER-Rafaela Gusman rg4 Morenita Singh RN RN jl7 Jacob Whitehead, ALBERTO RN bp Cynthia Vincent mw2 Pao Frank, RN RN db
[2022-11-29] MEDS ORDERED: NA CHLORIDE 0.9% 1,000 ML ONE (15:11)
[2022-11-29] MEDS ORDERED: POTASSIUM CL SA 10 MEQ TAB PO ONE (15:11)
[2022-11-29] MEDS ORDERED: KCL 20 MEQ/100 mL IVPB 100 ML IV ONE (15:12)
[2022-11-29] MEDS ORDERED: HYDROCODONE/APAP 5/325 MG TAB PO PRN (16:06)
[2022-11-29] MEDS ORDERED: ACETAMINOPHEN 325 MG TABLET PO PRN (16:06)
[2022-11-29] MEDS ORDERED: ONDANSETRON 4 MG/2 ML VIAL IV PRN (16:13)
[2022-11-29] MEDS ORDERED: HYDRALAZINE HCL 20 MG/ML VIAL IV PRN (16:18)
--- NOTE | 2022-11-29 16:19 | P.HP ---
Certification for Inpatient Patient admitted to: Observation With expected LOS: <2 Midnights Patient will require the following post-hospital care: None Practitioner: I am a practitioner with admitting privileges, knowledge of patient current condition, hospital course, and medical plan of care. Services: Services provided to patient in accordance with Admission requirements found in Title 42 Section 412.3 of the Code of Federal Regulations Patient History Date of Service: 11/29/22 Reason for admission: Constipation History of Present Illness: Patient is a 77-year-old female with a past medical history significant for hypothyroidism, atrial flutter, CHF, gout, obesity who presents with complaint of constipation that has been ongoing for the past 3 days. Patient reported that prior to that she had diarrhea for 3 days before she became constipated. Patient reported she has been having alternating symptoms for the past 3 weeks. Patient reports generalized abdominal discomfort. Patient reported associated signs and symptoms of poor appetite, dizziness, fatigue and weakness. Patient denies any other signs and symptoms. Symptoms are aggravated or relieved by nothing. Patient followed up with her PCP today and was instructed to go to the ER to rule out any bowel obstruction. Patient decided to present to the hospital as directed by her PCP. Allergies No Known Allergies Allergy (Verified 09/07/22 22:07) Home Medications: Metoprolol Tartrate [Lopressor*] 50 mg PO BID #60 tab 09/08/22 - Past Medical/Surgical History Diabetic: No -: HTN -: CHF -: COPD -: Afib/atrial flutter -: Hysterectomy -: right shoulder surgery - Social History Smoking Status: Never smoker Alcohol use: No CD- Drugs: No Caffeine use: No Place of Residence: Home Review of Systems General: Weakness, Other (fatigue, dizziness, poor appetite ) Eyes: Unremarkable ENT: Unremarkable Respiratory: Unremarkable Cardiovascular: Unremarkable Gastrointestinal: Diarrhea, Constipation, Other (Abdominal discomfort.) Genitourinary: Unremarkable Musculoskeletal: Unremarkable Integumentary: Unremarkable Neurological: Other (Dizziness.) Lymphatics: Unremarkable Physical Examination - Physical Exam General: Alert, In no apparent distress, Oriented x3, Cooperative HEENT: Atraumatic, PERRLA, EOMI, Sclerae nonicteric Neck: Supple, 2+ carotid pulse no bruit, No LAD, Without JVD or thyroid abnormality Respiratory: Clear to auscultation bilaterally, Normal air movement Cardiovascular: No murmurs, Irregular heart rate/rhythm Capillary refill: <2 Seconds Gastrointestinal: Normal bowel sounds, Tenderness Musculoskeletal: No clubbing, No contractures, No tenderness Integumentary: No rashes, No breakdown, No significant lesion, No erythema Neurological: Normal speech, Normal tone, Normal affect, Other (Dizziness) Lymphatics: No axilla or inguinal lymphadenopathy - Studies Laboratory Data (last 24 hrs) 11/29/22 12:41: Sodium 124 L, Potassium 2.1 L*, BUN 63 H, Creatinine 1.83 H, Glucose 157 H, Total Bilirubin 0.5, AST 19, ALT 14, Alkaline Phosphatase 82, Lipase 219 11/29/22 12:41: WBC 9.00, Hgb 14.8, Hct 45.1 H, Plt Count 306 Assessment and Plan - Plan --Hyponatremia. Serum\urine osmolality, urine\serum sodium and urine potassium pending. Nephrology consulted. 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 Replete as needed. --Constipation. CT abdomen unremarkable for any intra-abdominal abnormality. P atient placed on laxatives. --Hypertension. Poorly controlled. Continue home medications and hydralazine as needed. --Gout. Continue home medication -- Class II obesity. Likely secondary to excess calories intake. Patient counseled on weight reduction, diet and excise therapy. --Hypothyroidism. Continue medication. --History of atrial flutter\atrial fibrillation. Continue metoprolol and Yessenia enox subQ. --CKD 4. Nephrology consulted. Will await further recommendations. --UTI POA. Patient placed on antibiotics. Urine cultures pending. --Chronic diastolic CHF. Daily weight and strict I/O. Continue home medication. --DVT prophylaxis with Lovenox subQ. Discharge Plan: Home Plan to discharge in: 48 Hours - Advance Directives Does patient have a Living Will: Yes Does patient have a Durable POA for Healthcare: Yes - Code Status/Comfort Care Code Status Assessed: Yes Physician Review: Patient Assessed, Agree with Above Assessment and Plan Critical Care: No
[2022-11-29 16:37] LABS: SARS-CoV-2 Antigen Rapid Res Negative (Negative)
[2022-11-29 16:46] VITALS: BMI 39.6
[2022-11-29] MEDS: ENOXAPARIN 30 MG/0.3 ML SQ SCH (17:00)
[2022-11-29 17:19] LABS: Urine Blood Negative (Negative); Urine Glucose Negative (Negative); Urine Protein Negative (Negative); Urine Specific Gravity 1.015 (1.005-1.030)
[2022-11-29 17:25] LABS: Magnesium 2.2 mg/dL (1.6-2.4); Phosphorus 3.9 mg/dL (2.5-4.9); Thyroid Stimulating Hormone 2.95 uIU/mL (0.358-3.740)
[2022-11-29] MEDS ORDERED: NS KCL 40MEQ 40 MEQ/1,000 ML BAG IV SCH (17:45)
[2022-11-29 18:17] LABS: Potassium 2.6 mmol/L (3.5-5.1)
[2022-11-29 19:02] LABS: Specific Gravity 1.006 (1.005-1.030); Urine Bilirubin NEGATIVE (Negative); Urine Blood Negative (Negative); Urine Clarity Clear (Clear); Urine Color Colorless (Yellow); Urine Glucose NEGATIVE (Negative); Urine Protein NEGATIVE (Negative); Urine RBC <5 /HPF (None Seen); Urine Urobilinogen Normal (Normal)
[2022-11-29 19:03] LABS: Urine Bacteria 20-50 /HPF (<20)
[2022-11-29] MEDS: CEFTRIAXONE 1,000 MG in NA CHLORIDE 0.9% 50 ML IVPB SCH (19:30)
[2022-11-29] MEDS ORDERED: CEFTRIAXONE 1000 MG/VIAL ONE (19:33)
[2022-11-29] MEDS ORDERED: NA CHLORIDE 0.9% 50 ML IV ONE (19:33)
[2022-11-29] MEDS: METOPROLOL TAR 50 MG TAB PO SCH (21:00)
[2022-11-29] MEDS: DOCUSATE NA 100 MG CAP PO SCH (21:00)
[2022-11-29 22:26] LABS: Potassium 2.5 mmol/L (3.5-5.1)
[2022-11-29] MEDS ORDERED: KCL 20 MEQ/100 mL IVPB 20 MEQ/100 ML BAG IV SCH (23:00)
[2022-11-29] MEDS ORDERED: METOPROLOL TAR 25 MG TAB ONE (23:02)
[2022-11-29] MEDS ORDERED: DOCUSATE NA 100 MG CAP PO ONE (23:08)
[2022-11-30 02:33] LABS: Potassium 2.8 mmol/L (3.5-5.1)
[2022-11-30 04:52] LABS: Absolute Lymphocytes (CBC) 1.5 K/uL (0.7-4.9); Hematocrit 41.6 % (36.0-45.0); Lymphocytes % 13.7 % (15.3-44.8); MCV 78.1 fL (80-100); MPV 7.3 fL (7.6-11.3); RBC Red Blood Cell Count 5.33 M/uL (3.86-4.86)
[2022-11-30] MEDS ORDERED: NS KCL 40MEQ 40 MEQ/1,000 ML BAG IV SCH ×2 (05:00→10:53)
[2022-11-30 05:10] LABS: Potassium 2.7 mmol/L (3.5-5.1)
[2022-11-30] MEDS ORDERED: KCL 20 MEQ/100 mL IVPB 20 MEQ/100 ML BAG IV SCH (06:00)
[2022-11-30] MEDS: KCL 20 MEQ/100 mL IVPB 20 MEQ/100 ML BAG IV SCH ×3 (06:08→10:08)
[2022-11-30] MEDS ORDERED: KCL 20 MEQ/100 mL IVPB 100 ML IV ONE ×3 (06:19→10:18)
[2022-11-30] MEDS ORDERED: NA CHLORIDE 0.9% 500 ML ONE (06:19)
[2022-11-30] MEDS ORDERED: INFLUENZA VACCINE (for 6+ mo) 0.5 ML DOSE IMVAC ONE (08:00)
[2022-11-30] MEDS ORDERED: PNEUMOCOCCAL VACCINE 0.5 ML IMVAC ONE (08:00)
[2022-11-30] MEDS: DOCUSATE NA 100 MG CAP PO SCH ×2 (09:00→20:39)
[2022-11-30] MEDS: ENOXAPARIN 30 MG/0.3 ML SQ SCH (09:00)
[2022-11-30] MEDS: ASPIRIN 81 MG CHEWABLE TABLET PO SCH (09:00)
[2022-11-30] MEDS: METOPROLOL TAR 50 MG TAB PO SCH ×2 (09:00→19:48)
[2022-11-30] MEDS: CEFTRIAXONE 1,000 MG in NA CHLORIDE 0.9% 50 ML IVPB SCH (09:00)
[2022-11-30 09:46] VITALS: O2SAT 96
[2022-11-30] MEDS ORDERED: ASPIRIN 81 MG CHEWABLE TABLET ONE (09:51)
[2022-11-30] MEDS ORDERED: METOPROLOL TAR 50 MG TAB ONE (09:51)
[2022-11-30] MEDS ORDERED: ENOXAPARIN 30 MG/0.3 ML SQ ONE (09:51)
--- NOTE | 2022-11-30 11:02 | P.CNS ---
Date of Consult: 11/30/22 Reason for Consult: Hyponatremia, hypokalemia, renal insufficiency Requesting Physician: Evangelist Haq Chief Complaint: Constipation History of Present Illness: Patient is a 77-year-old female with a past medical history significant for atrial flutter/fibrillation s/p cardiac ablation in the past, unspecified CHF on chronic large doses of diuretics for peripheral edema reporting taking as much as Torsemide 100 mg qd and Metolazone, unspecified dose, either every other day or possibly even daily. Pt reports recent alternating constipation followed by diarrhea after the use of laxatives. She reports some abdominal discomfort related to this. No reports of N/V. No reports of current dyspnea. Pt reports following with a Advertising Representative in the [place] area, Dr. Todd and denies any chronic electrolyte disorder. Allergies No Known Allergies Allergy (Verified 09/07/22 22:07) Home Medications: Metoprolol Tartrate [Lopressor*] 50 mg PO BID #60 tab 09/08/22 - Past Medical/Surgical History Diabetic: No -: HTN -: CHF -: COPD -: Afib/atrial flutter -: Hysterectomy -: right shoulder surgery - Social History Alcohol use: No CD- Drugs: No Caffeine use: No Place of Residence: Home Review of Systems General: Unremarkable Eyes: Unremarkable ENT: Unremarkable Respiratory: Unremarkable Cardiovascular: As per HPI Gastrointestinal: Diarrhea, Constipation Genitourinary: Unremarkable Musculoskeletal: Unremarkable Integumentary: Unremarkable Neurological: Unremarkable Lymphatics: Unremarkable Physical Examination Temp Pulse Resp BP Pulse Ox 98.1 F 54 17 133/82 97 11/30/22 07:41 11/30/22 09:00 11/30/22 07:41 11/30/22 07:41 11/30/22 07:41 General: Alert, In no apparent distress, Oriented x3 HEENT: Atraumatic, Normocephalic, PERRLA Neck: Supple Respiratory: Clear to auscultation bilaterally, Normal air movement Cardiovascular: No edema, Other (Bradycardic) Gastrointestinal: Soft and benign, Non-distended, Other (Obese) Musculoskeletal: No swelling, No contractures, No erythema, No tenderness Integumentary: No rashes Neurological: Normal speech, Normal tone, Normal affect Laboratory Data (last 24 hrs) 11/29/22 12:41: Sodium 124 L, Potassium 2.1 L*, BUN 63 H, Creatinine 1.83 H, Glucose 157 H, Total Bilirubin 0.5, AST 19, ALT 14, Alkaline Phosphatase 82, Lipase 219 11/29/22 12:41: WBC 9.00, Hgb 14.8, Hct 45.1 H, Plt Count 306 Conclusions/Impression: A/P) 1. Abnormal results of kidney function studies. Stage 1 ELBERT in the setting of pre-renal azotemia with chronic, large dose diuretic use. Possible underlying CKD NOS, no other labs in this EMR with which to compare. Will need to get records from her PCP or [facility] where she typically has labs drawn, 2. Severe hypokalemia on admission in the setting of chronic loop and thiazide diuretic use. Had been on the potent Metolazone. Was additionally using laxatives on a regular basis. K level up to 2.7-2.8 mmol/L, Mg level > 2.0. Receiving additional IV KCL this AM and is on NS IVF with 40 meq KCL added. All diuretics held. If pt requires maintenance diuretic therapy as an OP, recommend employing K sparing agents such as Amiloride, Spironolactone. Will not start ACEi yet due to renal insufficiency and BP is not elevated. 3. Hyponatremia, presumed chronic in part, asymptomatic. Hypovolemic component in part along with chronic diuretic use, poor PO intake per reports and thiazide diuretic use -cont isotonic IVF with KCL which has an isoosmolar effect. Trend Na levels, no rapid rise thus far. 4. CHF unspecified -compensated, BNP on admission < 1000, ok to cont beta gianfranco, diuretics held as per above. Guillermo Waterman MD, [facility]
[2022-11-30 14:36] LABS: Potassium 3.2 mmol/L (3.5-5.1)
--- NOTE | 2022-11-30 18:06 | P.PN ---
Subjective Date of Service: 11/30/22 Chief Complaint: Constipation Patient has no new complaint. She denies any abdominal pain. No recent diarrhea. Physical Examination - Vital Signs Temperature: 97.8 F Blood Pressure: 118/53 Pulse: 57 Respirations: 17 Pulse Ox (%): 97 - Studies Laboratory Data (last 24 hrs) 11/30/22 13:58: Sodium 129 L, Potassium 3.2 L D, BUN 52 H, Creatinine 1.63 H, Glucose 145 H 11/30/22 04:09: Sodium 128 L, Potassium 2.7 L*, BUN 60 H, Creatinine 1.69 H, Glucose 103, Triglycerides 171 H, Cholesterol 156, HDL Cholesterol 44, Cholesterol/HDL Ratio 3.55 11/30/22 04:09: WBC 11.10 H, Hgb 13.4 D, Hct 41.6, Plt Count 285 11/30/22 01:47: Sodium 127 L, Potassium 2.8 L*, BUN 60 H, Creatinine 1.81 H, Glucose 114 H 11/29/22 21:46: Sodium 128 L D, Potassium 2.5 L*, BUN 60 H, Creatinine 1.78 H, Glucose 109 H 11/29/22 16:45: Sodium 123 L, Potassium 2.6 L* D, BUN 62 H, Creatinine 1.60 H, Glucose 105 Assessment And Plan - Current Problems (Diagnosis) (1) Hypokalemia Current Visit: Yes Status: Acute (2) Hyponatremia Current Visit: Yes Status: Acute (3) Chronic diastolic heart failure Current Visit: Yes Status: Acute (4) Pulmonary hypertension Current Visit: Yes Status: Acute (5) Acute kidney injury Current Visit: Yes Status: Acute (6) Functional constipation Current Visit: Yes Status: Acute - Plan Physical Exam General: Alert, In no apparent distress, Oriented x3. Neck: Supple, no elevated JVD. Respiratory: Clear to auscultation bilaterally, Normal air movement Cardiovascular: No murmurs, Irregular heart rate/rhythm Gastrointestinal: Normal bowel sounds, no tenderness Integumentary: No rashes, No breakdown, No significant lesion, No erythema Neurological: Normal speech, no focal motor deficit. Plan: Patient with history of alternating constipation and diarrhea. No recent diarrhea but she came with severe hypokalemia. Patient had been on diuresis with Lasix and metolazone. Nephrology input appreciated. Patient hydrated with IV normal Potassium level replaced with IV potassium. Continue to monitor electrolyte and replete as needed. Diuretics on hold. Monitor renal function. Senna for constipation. Possible discharge in a.m.
[2022-11-30] MEDS: SENOSIDES 8.6 MG TAB PO SCH (20:39)
[2022-11-30] MEDS ORDERED: DOCUSATE NA 100 MG CAP PO ONE (20:42)
[2022-11-30 21:04] VITALS: TEMP 98.3
[2022-11-30] MEDS ORDERED: HYDROCODONE/APAP 5/325 MG TAB ONE (22:29)
[2022-12-01 04:07] LABS: Absolute Lymphocytes (CBC) 1.5 K/uL (0.7-4.9); Hematocrit 41.1 % (36.0-45.0); Lymphocytes % 15.9 % (15.3-44.8); MCV 78.8 fL (80-100); MPV 7.2 fL (7.6-11.3); RBC Red Blood Cell Count 5.22 M/uL (3.86-4.86)
[2022-12-01 04:27] LABS: Potassium 2.9 mmol/L (3.5-5.1)
[2022-12-01] MEDS ORDERED: POTASSIUM CL 40 MEQ in NA CHLORIDE 0.9% 500 ML IV SCH (05:00)
[2022-12-01] MEDS ORDERED: KCL 20 MEQ/100 mL IVPB 100 ML IV ONE (05:45)
[2022-12-01] MEDS: KCL 20 MEQ/100 mL IVPB 20 MEQ/100 ML BAG IV SCH ×3 (05:46→10:00)
[2022-12-01] MEDS ORDERED: KCL 20 MEQ/100 mL IVPB 200 ML IV ONE (07:56)
[2022-12-01] MEDS: ENOXAPARIN 30 MG/0.3 ML SQ SCH (09:00)
[2022-12-01] MEDS: METOPROLOL TAR 50 MG TAB PO SCH (09:00)
[2022-12-01] MEDS: CEFTRIAXONE 1,000 MG in NA CHLORIDE 0.9% 50 ML IVPB SCH (09:00)
[2022-12-01] MEDS: SENOSIDES 8.6 MG TAB PO SCH (09:00)
[2022-12-01] MEDS: ASPIRIN 81 MG CHEWABLE TABLET PO SCH (09:00)
[2022-12-01] MEDS: DOCUSATE NA 100 MG CAP PO SCH (09:00)
[2022-12-01] MEDS ORDERED: CEFTRIAXONE 1000 MG/VIAL ONE (09:10)
[2022-12-01] MEDS ORDERED: METOPROLOL TAR 50 MG TAB ONE (09:10)
[2022-12-01] MEDS ORDERED: ASPIRIN EC 81 MG TAB PO ONE (09:10)
[2022-12-01] MEDS ORDERED: ENOXAPARIN 30 MG/0.3 ML SQ ONE (09:11)
[2022-12-01] MEDS ORDERED: NA CHLORIDE 0.9% 100 ML ONE (09:11)
[2022-12-01] MEDS ORDERED: DOCUSATE NA 100 MG CAP PO ONE (09:18)
--- NOTE | 2022-12-01 09:51 | P.PN ---
Nephrology note (S) Pt continues to receive potassium replacement, reports constipation but no cramps, denies dyspnea or edema General: Alert, In no apparent distress, Oriented x3 HEENT: Atraumatic, Normocephalic, PERRLA Neck: Supple Respiratory: Clear to auscultation bilaterally, Normal air movement Cardiovascular: No edema, Other (Bradycardic) Gastrointestinal: Soft and benign, Non-distended, Other (Obese) Musculoskeletal: No swelling, No contractures, No erythema, No tenderness Integumentary: No rashes Neurological: Normal speech, Normal tone, Normal affect Laboratory Data (last 24 hrs) Reviewed in the EMR Conclusions/Impression: A/P) 1. Abnormal results of kidney function studies. Stage 1 ELBERT in the setting of pre-renal azotemia with chronic, large dose diuretic use. Possible underlying CKD NOS, no other labs in this EMR with which to compare. Cr level has downward trended some so renal function improving. IVF stopped. 2. Severe hypokalemia on admission in the setting of chronic loop and thiazide diuretic use. Had been on the potent Metolazone. Was additionally using laxatives on a regular basis. Mg level > 2.0. Receiving additional IV KCL this AM. Did d/c IVF with KCl added. If pt requires maintenance diuretic therapy as an OP, recommend employing K sparing agents such as Amiloride, Spironolactone. Will start latter. 3. Hyponatremia, presumed chronic in part, asymptomatic. Hypovolemic component in part along with chronic diuretic use, poor PO intake per reports and thiazide diuretic use -administering KCL which has an isoosmolar effect. Na level now > 130 4. CHF unspecified -compensated, BNP on admission < 1000. Given that K levels remain low and BP holding, will start on low dose ACEi at 5 mg qd with holding parameter. If K level better on repeat testing this afternoon, pt can discharge with Torsemide/metolazone on hold and with Spironolactone/low dose ACEi and a lab slip to repeat labs within a few days and to f/u with me locally or her [facility] in [place]. Guillermo Waterman MD, [facility]
[2022-12-01] MEDS ORDERED: lisinopriL 5 MG TAB PO SCH (10:00)
[2022-12-01] MEDS ORDERED: POTASSIUM CL SA 10 MEQ TAB PO ONE ×2 (10:55→11:11)
[2022-12-01] MEDS ORDERED: lisinopriL 5 MG TAB ONE (11:11)
[2022-12-01 14:38] VITALS: BP 137/68
--- NOTE | 2022-12-01 14:41 | P.DS ---
Admission Date: 11/30/22 Discharge Date: 12/01/22 Disposition: ROUTINE DISCHARGE Discharge Condition: FAIR Reason for Admission: Constipation - Problems (1) Hypokalemia Current Visit: Yes Status: Acute (2) Hyponatremia Current Visit: Yes Status: Acute (3) Chronic diastolic heart failure Current Visit: Yes Status: Acute (4) Pulmonary hypertension Current Visit: Yes Status: Acute (5) Acute kidney injury Current Visit: Yes Status: Acute (6) Functional constipation Current Visit: Yes Status: Acute Brief History of Present Illness: Patient is a 77-year-old female with a past medical history significant for hypothyroidism, atrial flutter, CHF, gout, obesity who presents with complaint of constipation that has been ongoing for 3 days. Patient reported that prior to that she had diarrhea for 3 days before she became constipated. Patient reported she has been having alternating symptoms for the past 3 weeks. Patient reported generalized abdominal discomfort. Patient reported associated signs and symptoms of poor appetite, dizziness, fatigue and weakness. She followed up with her PCP today and was instructed to go to the ER to rule out any bowel obstruction. CT abdomen done in the ED showed no bowel obstruction, cholelithiasis without cholecystitis. Patient noted to have hyponatremia and severe hypokalemia. She was hospitalized for further management. Hospital Course: Patient admitted to the medical floor, hydrated with IV fluid, hypokalemia repleted with IV potassium and oral potassium. She was seen in consultation by nephrology who assisted with management. Hypokalemia edema secondary to diuresis with Lasix and metolazone. Nephrology discontinued this medications. Patient started on lisinopril and spironolactone which are potassium sparing. Sodium level improved with treatment, hypokalemia corrected. Patient was started on senna and Colace for constipation prophylaxis. She had a bowel movement. She is currently asymptomatic and deemed stable for discharge. She is informed to repeat her BMP within 4 days to be followed by nephrology Dr. Waterman. Vital Signs/Physical Exam: Temp Pulse Resp BP Pulse Ox 98.3 F 54 16 133/70 96 11/30/22 20:00 12/01/22 04:00 12/01/22 04:00 12/01/22 04:00 12/01/22 04:00 General: Alert, In no apparent distress, Oriented x3 HEENT: Mucous membr. moist/pink Neck: Supple, JVD not distended Respiratory: Clear to auscultation bilaterally, Normal air movement Cardiovascular: No edema, Regular rate/rhythm, Normal S1 S2 Gastrointestinal: Normal bowel sounds, Soft and benign, Non-distended, No tenderness Musculoskeletal: No swelling Integumentary: No rashes, No cyanosis Neurological: Normal strength at 5/5 x4 extr Laboratory Data at Discharge: WBC 9.30 K/uL (4.3-10.9) 12/01/22 03:35 Hgb 13.4 g/dL (12.0-15.0) 12/01/22 03:35 Hct 41.1 % (36.0-45.0) 12/01/22 03:35 Plt Count 263 K/uL (152-406) 12/01/22 03:35 Sodium 132 mmol/L (136-145) L 12/01/22 03:35 Potassium 3.8 mmol/L (3.5-5.1) D 12/01/22 13:53 BUN 50 mg/dL (7-18) H 12/01/22 03:35 Creatinine 1.44 mg/dL (0.55-1.02) H 12/01/22 03:35 Glucose 112 mg/dL (74-106) H 12/01/22 03:35 Uric Acid 6.7 mg/dL (2.6-6.0) H 12/01/22 03:35 Phosphorus 3.9 mg/dL (2.5-4.9) 11/29/22 16:45 Magnesium 2.2 mg/dL (1.6-2.4) 11/29/22 16:45 Total Bilirubin 0.5 mg/dL (0.2-1.0) 11/29/22 12:41 AST 19 U/L (15-37) 11/29/22 12:41 ALT 14 U/L (13-56) 11/29/22 12:41 Alkaline Phosphatase 82 U/L (45-117) 11/29/22 12:41 Triglycerides 171 mg/dL (<150) H 11/30/22 04:09 Cholesterol 156 mg/dL (<200) 11/30/22 04:09 HDL Cholesterol 44 mg/dL (40-60) 11/30/22 04:09 Cholesterol/HDL Ratio 3.55 11/30/22 04:09 Lipase 219 U/L (73-393) 11/29/22 12:41 Home Medications: Metoprolol Tartrate [Lopressor*] 50 mg PO BID #60 tab 09/08/22 Docusate [Colace Cap*] 100 mg PO BID #60 cap 12/01/22 Senosides [Senokot*] 17.2 mg PO BID #120 tab 12/01/22 Spironolactone [Aldactone*] 25 mg PO DAILY #30 tab 12/01/22 lisinopriL [Prinivil*] 5 mg PO DAILY #30 tab 12/01/22 New Medications: Spironolactone [Aldactone*] 25 mg PO DAILY #30 tab Docusate [Colace Cap*] 100 mg PO BID #60 cap lisinopriL [Prinivil*] 5 mg PO DAILY #30 tab Senosides [Senokot*] 17.2 mg PO BID #120 tab Physician Discharge Instructions: Repat BMP on Monday12/05/2022. Dr. Waterman to follow BMP result. Diet: AHA Activity: Ad dennise Followup: Guillermo Waterman [ACTIVE - CAN ADMIT] - 1-2 Weeks Lincoln Wise MD [Primary Care Provider] - 1-2 Weeks Time spent managing pt's care (in minutes): 32
--- NOTE | 2022-12-01 18:11 | EKG ---
Test Date: 2022-11-29 Test Time: 16:23:11 Rivet Sticker: WAYLON MEASUREMENT RESULTS: Intervals: Rate: 52 IA: 314 QRSD: 96 QT: 472 QTc: 438 [place]: P: 64 IA: 314 QRS: -81 T: 103 INTERPRETIVE STATEMENTS: Sinus bradycardia with 1st degree AV block Left axis deviation Incomplete right bundle branch block Anteroseptal infarct, age undetermined Abnormal ECG Compared to ECG 09/07/2022 11:00:39 First degree AV block now present Left-axis deviation now present Incomplete right bundle-branch block now present Myocardial infarct finding now present Atrial flutter no longer present Right superior axis no longer present ST (T wave) deviation no longer present Electronically Signed On 12-01-22 18:10:34 SURVEYOR by Db Watt
[2022-12-02] MEDS ORDERED: SPIRONOLACTONE 25 MG TABLET PO SCH (10:00)
== END 2022-12-01 14:49 | disposition home or self-care (01) | DRG 641 ==
LOC: ER 11:54 → ERHOLD 16:03 → OBSVTOIN 11-30 15:40 → ERHOLD 12-01 11:13
PROVIDERS: ADMIT Internal Medicine; ATTEND Internal Medicine
DX: E87.6 Hypokalemia (principal); N17.9 Acute kidney failure, unspecified; I13.0 Hypertensive heart and chronic kidney disease with heart failure and stage 1 through stage 4 chronic kidney disease, or unspecified chronic kidney disease; I50.32 Chronic diastolic (congestive) heart failure; I48.92 Unspecified atrial flutter; N39.0 Urinary tract infection, site not specified; N18.4 Chronic kidney disease, stage 4 (severe); T50.1X5A Adverse effect of loop [high-ceiling] diuretics, initial encounter; E87.1 Hypo-osmolality and hyponatremia; K59.04 Chronic idiopathic constipation; I48.91 Unspecified atrial fibrillation; I27.20 Pulmonary hypertension, unspecified; M10.9 Gout, unspecified; E03.9 Hypothyroidism, unspecified; K80.20 Calculus of gallbladder without cholecystitis without obstruction; J44.9 Chronic obstructive pulmonary disease, unspecified; E66.09 Other obesity due to excess calories; Z68.39 Body mass index [BMI] 39.0-39.9, adult; Z71.3 Dietary counseling and surveillance; Z71.82 Exercise counseling; Z79.01 Long term (current) use of anticoagulants; Z79.899 Other long term (current) drug therapy; Z90.710 Acquired absence of both cervix and uterus; Z20.822 Contact with and (suspected) exposure to COVID-19
CPT/HCPCS: 36415; 74176; 80048; 80053; 80061; 81001; 81003; 82550; 83690; 83735; 83880; 83930; 83935; 84100; 84132; 84295; 84300; 84439; 84443; 84550; 85025; 87811; 93005; 96365; 96366; 99285; G0378; J1650; J3480; J7030; J7040